=== PATIENT | female | born 1930 | race Caucasian/White ===

== ENCOUNTER 2017-08-02 16:46 | Inpatient (IN) | payer MEDICARE, OTHER ==
[2017-08-02] MEDS ORDERED: Acetaminophen 325 MG TAB PO PRN (18:03)
[2017-08-02] MEDS ORDERED: Apixaban 5 MG TAB PO SCH (18:15)
[2017-08-02] MEDS ORDERED: Diltiazem HCl 125 MG, Admixture Fee 1 EACH in Sodium Chloride 0.9% 100 ML IVPB SCH (18:15)
[2017-08-02] MEDS ORDERED: Ondansetron HCl/PF 4 MG/2 ML Vial IVP PRN (18:35)
[2017-08-02] MEDS ORDERED: Calcium Carbonate 500 MG ChewTAB PO PRN (18:35)
[2017-08-02 18:42] LABS: #Eosinphils 0.1 thou/uL (0.0-0.7); #Lymphocytes 1.6 thou/uL (1.20-3.40); #Monocytes 0.7 thou/uL (0.11-0.59); #Neutrophils 4.8 thou/uL (1.40-6.50); %Basophils 0.3 % (0.0-1.0); %Eosinophils 1.1 % (0.0-10.0); %Lymphocytes 22.3 % (21.0-51.0); %Monocytes 9.3 % (0.0-10.0); Hematocrit 43.7 % (36.0-47.0); Mean Platelet Volume 7.2 fL (7.4-10.4); Red Blood Cell (RBC) Count 4.22 mill/uL (4.20-5.40); White Blood Cell (WBC) Count 7.2 thou/uL (4.8-10.8)
[2017-08-02 19:09] LABS: ALT (SGPT) 12 U/L (8-55); AST (SGOT) 18 U/L (5-34); Alkaline Phosphatase 106 U/L (40-150); Anion Gap 13 mmol/L (10-20); BUN (Urea Nitrogen) 18 mg/dL (9.8-20.1); Bilirubin, Total 0.6 mg/dL (0.2-1.2); Calc. Creatinine Clearance 0 mL/min (70-130); Calcium 9.3 mg/dL (7.8-10.44); Carbon Dioxide 26 mmol/L (23-31); Chloride 106 mmol/L (98-107); Estimated GFR-MDRD 40; Globulin 3.4 g/dL (2.4-3.5); Protein, Total 7.5 g/dL (6.0-8.3)
[2017-08-02 19:13] LABS: Troponin I Less than 0.010 ng/mL (< 0.028)
--- NOTE | 2017-08-02 19:50 | RAD ---
PORTABLE CHEST ONE VIEW: 08/02/17 at 6:15 p.m. HISTORY: Atrial fibrillation. FINDINGS/IMPRESSION: Comparison is made to exam of 05/24/13. The heart size is normal and the aorta is tortuous. The lungs are well expanded without focal areas of consolidation, pneumothorax or pleural effusions. IMPRESSION: No acute process. POS: [facility]
--- NOTE | 2017-08-02 22:02 | HP ---
CHIEF COMPLAINT: Dizziness. HISTORY OF PRESENT ILLNESS: This is an 87-year-old pleasant lady, who was apparently in usual state of health, was feeling a little dizzy on and off for the last 3 weeks and had some chest pain on an d off as well during night time, which lasted for a few seconds because of dizziness and she had a f eeling of lack of energy. She went to her doctor, Dr. Ricardo, who evaluated her and found her to be in atrial fibrillation. She was sent from his office to us for further evaluation and treatment. S he denies any dizziness or chest pain. She denies any shortness of breath, fever, or chills. PAST MEDICAL HISTORY: Significant for left shoulder degenerative joint disease, hypertension, stres s test negative in 2012, diverticulosis, hyperlipidemia, and hypertension. MEDICATIONS: Include losartan 100 mg p.o. daily. ALLERGIES: NARCISO and ACTONEL. PAST SURGICAL HISTORY: Colon surgery in 2004 and knee surgery. FAMILY HISTORY: Mother has coronary artery disease. SOCIAL HISTORY: Does not smoke or do recreational drugs. Has 2 or 3 glasses of wine every day. OUTPATIENT REVIEW OF SYSTEMS: Significant for dizziness, on and off chest pain, otherwise no fever, no chills, no headache, no appetite, and latencies, no shortness of breath, no diarrhea, dysuria, o r polyuria. No memory or mood changes. No neck pain. PHYSICAL EXAMINATION: VITAL SIGNS: Blood pressure is 134/97, pulse is 141, temperature 97, breathing comfortably on room air. GENERAL: The patient is lying in bed, in no apparent distress. HEENT: Atraumatic and normocephalic. Pupils equally round, react to light. Extraocular movements intact. Mucous membranes moist. NECK: No JVD. CHEST: Breath sounds heard. There are no rales or rhonchi. HEART: S1 and S2 normal, irregularly irregular rhythm. ABDOMEN: Soft, obese. EXTREMITIES: No cyanosis, clubbing, or edema. Distal pulses present. NEUROLOGIC: Alert, awake, oriented. No cranial deficits. No sensorimotor deficits. LABORATORY DATA: Patient's labs are pending. ASSESSMENT AND PLAN: Atrial fibrillation with rapid ventricular response, do IV Cardizem 10 mg IV p ush, followed by Cardizem drip at 6 mg per hour. We will see the response and make further recommen dations, do Eliquis for anticoagulation, serial troponins, and Cardiology consult. We will also do an echocardiogram. Patient's hypertension, on Cardizem, we will monitor that and add medications as needed. We will hold losartan for now. Degenerative joint disease of the left shoulder, we will d o pain medications. History of diverticulosis, stable. The patient is on Eliquis for deep venous t hrombosis prophylaxis. I will work with Cardiology and further caring for the patient.
[2017-08-03 01:09] LABS: Troponin I 0.062 ng/mL (< 0.028)
[2017-08-03 05:33] LABS: #Basophils 0.1 thou/uL (0.0-0.2); #Eosinphils 0.2 thou/uL (0.0-0.7); #Lymphocytes 1.7 thou/uL (1.20-3.40); #Monocytes 0.7 thou/uL (0.11-0.59); #Neutrophils 3.8 thou/uL (1.40-6.50); %Basophils 0.9 % (0.0-1.0); %Eosinophils 2.6 % (0.0-10.0); %Lymphocytes 26.8 % (21.0-51.0); Hematocrit 41.5 % (36.0-47.0); Mean Platelet Volume 7.2 fL (7.4-10.4); Red Blood Cell (RBC) Count 4.04 mill/uL (4.20-5.40); White Blood Cell (WBC) Count 6.4 thou/uL (4.8-10.8)
[2017-08-03 05:51] LABS: Bilirubin Negative (Negative); Blood, Urine Trace (Negative); Glucose, Urine (Dipstick) Negative (Negative); Ketone, Urine Trace mg/dL (Negative); Nitrite Negative (Negative); Protein, Urine (Dipstick) Negative (Neg-Trace); Urobilinogen 0.2 mg/dL (0.2-1.0)
[2017-08-03 05:52] LABS: ALT (SGPT) 10 U/L (8-55); AST (SGOT) 18 U/L (5-34); Alkaline Phosphatase 90 U/L (40-150); Anion Gap 8 mmol/L (10-20); BUN (Urea Nitrogen) 15 mg/dL (9.8-20.1); Bilirubin, Total 0.7 mg/dL (0.2-1.2); Calc. Creatinine Clearance 41 mL/min (70-130); Calcium 8.9 mg/dL (7.8-10.44); Carbon Dioxide 30 mmol/L (23-31); Chloride 106 mmol/L (98-107); Estimated GFR-MDRD 52; Globulin 2.9 g/dL (2.4-3.5); Protein, Total 6.6 g/dL (6.0-8.3)
[2017-08-03 06:13] LABS: Bacteria/HPF 1+ HPF (None Seen); Hyaline Casts/LPF 0-3 HYALINE CAST LPF (0-3 Hyaline)
[2017-08-03] MEDS ORDERED: Losartan Potassium 25 MG TAB PO SCH (09:00)
[2017-08-03] MEDS ORDERED: FLU VACC TS2017-18 (>65YR) 0.5 ML SYRINGE IM ONE (09:00)
[2017-08-03] MEDS: Apixaban 5 MG TAB PO SCH ×2 (10:01→21:34)
--- NOTE | 2017-08-03 11:51 | PDOC.PN ---
- Subjective Encounter Start Date: 08/03/17 Encounter Start Time: 08:20 Pt seen for followup re; atrial fibrillation with rapid ventricular response. Denies chest pain or shortness of breath. Denies palpitations. Reports tinnitus, bilateral, few weeks duration. Reports feeling dizzy. Denies hearing loss. - Objective Resuscitation Status: Resuscitation Status DNR:Do Not Resuscitate MAR Reviewed: Yes Vital Signs & Weight: Vital Signs (12 hours) Temp Pulse Resp BP Pulse Ox 08/03/17 08:55 97.9 F 104 H 16 97 08/03/17 04:24 97.5 F L 112 H 18 105/69 92 L Weight Weight 146 lb I&O: 08/02/17 08/03/17 08/04/17 06:59 06:59 06:59 Intake Total 163.6 Output Total 300 Balance -136.4 Result Diagrams: 08/03/17 04:37 08/03/17 04:37 EKG Reviewed by me: Yes (Tele: aFaith [email or web address]) Phys Exam - Physical Examination Constitutional: NAD HEENT: moist MMs, sclera anicteric, TM's clear, oral pharynx no lesions Neck: no JVD, supple Respiratory: no wheezing, no rales, no rhonchi, clear to auscultation bilateral Cardiovascular: no rub, irregular Gastrointestinal: soft, non-tender, no distention, positive bowel sounds Musculoskeletal: no edema, pulses present Neurological: non-focal, moves all 4 limbs Psychiatric: normal affect, A&O x 3 Skin: no rash, normal turgor, cap refill <2 seconds Dx/Plan (1) Atrial fibrillation with RVR Code(s): I48.91 - UNSPECIFIED ATRIAL FIBRILLATION Status: Acute (2) Tinnitus of both ears Code(s): H93.13 - TINNITUS, BILATERAL Status: Acute (3) Hypertension Code(s): I10 - ESSENTIAL (PRIMARY) HYPERTENSION Status: Chronic (4) Dyslipidemia Code(s): E78.5 - HYPERLIPIDEMIA, UNSPECIFIED Status: Chronic - Plan out of bed/ambulate * . Continue cardizem drip, await cardiology consult. Check 2D echo. Continue apixaban. Consult ENT re; tinnitus. Continue losartan, monitor vital signs and titrate antihypertensives as needed. Review of Systems - Review of Systems Constitutional: negative: Fever, Chills, Sweats, Weakness, Malaise ENT: Other (dizziness, tinnitus) Respiratory: negative: Cough, Dry, Shortness of Breath, Hemoptysis, SOB with Excertion, Pleuritic Pain, Sputum, Wheezing Cardiovascular: negative: Chest Pain, Palpitations, Orthopnea, Paroxysmal Noc. Dyspnea, Edema, Light Headedness Gastrointestinal: negative: Nausea, Vomiting, Abdominal Pain, Diarrhea, Constipation, Melena, Hematochezia Genitourinary: negative: Dysuria, Frequency, Incontinence, Hematuria, Retention - Medications/Allergies Allergies/Adverse Reactions: Allergies Allergy/AdvReac Type Severity Reaction Status Date / Time No Known Drug Allergies Allergy Verified 08/03/17 00:12 Medications: Current Medications Acetaminophen (Tylenol) 650 mg PO QIDPRN PRN PRN Reason: Headache/Fever or Pain Hydrocodone Bitart/Acetaminophen ([place] 5/325) 1 tab PO Q4H PRN PRN Reason: Moderate Pain (4-6) Apixaban (Eliquis) 5 mg PO BID [facility] Last Admin: 08/03/17 10:01 Dose: 5 mg Calcium Carbonate (Tums) 1,000 mg PO Q4H PRN PRN Reason: Heartburn or Indigestion Diltiazem HCl 125 mg/Miscellaneous Medication 1 each/ Sodium Chloride 125 mls @ 6 mls/hr IVPB INF [facility] PRN Reason: Protocol Ondansetron HCl (Zofran) 4 mg IVP Q6H PRN PRN Reason: Nausea/Vomiting Pantoprazole Sodium (Protonix) 40 mg PO DAILY [facility] Last Admin: 08/03/17 10:01 Dose: 40 mg
[2017-08-03] MEDS ORDERED: Acetaminophen 325 MG TAB PO PRN (11:53)
[2017-08-03] MEDS ORDERED: Digoxin 0.5 MG/2 ML AMP SLOW IVP SCH (15:30)
[2017-08-03] MEDS: Carvedilol 3.125 MG TAB PO SCH (16:01)
--- NOTE | 2017-08-03 17:37 | CON ---
DATE OF CONSULTATION: 08/03/2017 CARDIOLOGY CONSULTATION INDICATION FOR CONSULTATION: An 87-year-old female with new onset atrial fibrillation. HISTORY OF PRESENT ILLNESS: Ms. Lynch is a very pleasant 87-year-old female. I took care of her h usband for many years until his . She has been doing extremely well given her age. She recent ly had taken a trip to [place], [place] for her birthday and had been doing quite well. She then retu rned back to [facility], and on Tuesday, she started feeling somewhat dizzy and then yesterday she had a near syncopal episode. She has not been feeling very well and she also had some discomfort in the epigastric and lower chest area with some aching and then radiated to the back ar ea. She then presented to her primary physician's office and was found to have atrial fibrillation with rapid ventricular response, and was then brought to the hospital where she has been admitted. She continues to be in atrial fibrillation with rapid ventricular response, but she is somewhat more comfortable and now that she is lying in the bed and is not very active. She has been up to the ba throom by herself and heart rate does increase when she does have activity. She has had no previous cardiac history that she is aware of. At this time, she is comfortable. She denied any other ches t discomfort. She did have some shortness of breath with exertion with the new onset of the atrial fibrillation. PAST MEDICAL HISTORY: I believe she has had shoulder surgery and she says that she has degenerative joint disease. She has history of hypertension. She has mild aortic valve sclerosis. She has had colon polyps in the past. She has had a history of hypercholesterolemia. She has had right knee s urgery. She has had a history of esophageal reflux. She has osteopenia. She has a right inguinal hernia for which she underwent right inguinal hernia repair. She has L4-L5 stenosis. FAMILY HISTORY: Positive for coronary artery disease in her mother. SOCIAL HISTORY: There is no history of tobacco abuse. She has 2 to 3 glasses of wine a day. ALLERGIES: She is allergic to NARCISO INHIBITORS and ACTONEL. MEDICATIONS: Prior to admission include losartan and also Tylenol and Metamucil. HOSPITAL MEDICATIONS: She is on Tylenol, Eliquis 5 mg b.i.d., I have been recently started her toda y on Coreg 3.125 mg b.i.d. and I have also started her on digoxin. She is already on diltiazem IV f or rate control, losartan 100 mg at bedtime and Protonix 40 mg q.p.m. REVIEW OF SYSTEMS: She has complained of some tenderness. Otherwise, 12-point review of systems wa s unremarkable except what was noted in the history of present illness. This 87-year-old female who remains very active for her age, has had no major hospitalizations or illnesses. PHYSICAL EXAMINATION: GENERAL: Reveals an elderly, very pleasant female. VITAL SIGNS: Her blood pressure is 117/96, heart rate is anywhere between 104 to 141. She is afebr ile, respiratory rate 18 to 23. HEENT: Shows head to be normocephalic and atraumatic. Carotid pulses are present. I did not hear any bruits. There is no JVD. The thyroid is not enlarged. Oral mucosa was pink and moist. CHEST: Clear to auscultation. There are no rales, rhonchi, or wheezing noted. CARDIOVASCULAR: Exam reveals a rapid rate with an irregular rhythm. I did not hear any significant S1 or S2. There is no S3 or S4 noted. ABDOMEN: Soft and nontender. She has positive bowel sounds. EXTREMITIES: Showed no clubbing, cyanosis or edema. Pedal pulses are present. NEUROLOGIC: She is awake and alert. SKIN: Warm and dry. IMAGING: EKG shows atrial fibrillation, but no acute ST segment changes to indicate ischemia. LABORATORY DATA: Shows a creatinine of 1.0, potassium 4.5, hemoglobin is 14 and WBC is 6.4. Her ca rdiac enzymes are unremarkable to the second set, which showed a troponin I of 0.062, which would no t be unusual in a rapid heart rate associated with the atrial fibrillation. IMPRESSION: 1. New onset atrial fibrillation in this elderly female and suppose this was started since she has been back from [place] or while she was in [place] for which she went for her birthday alliance party and had quite an extensive amount of activity. We will need to evaluate the echocardiogram to determine th e left atrial size and see if we can eventually converted back to sinus rhythm. We may need to conv ert her sooner than later, and so she may need to undergo a transesophageal echocardiogram and then early cardioversion. Otherwise, we may need to slow the heart rate down to see if we can control th e heart rate and continue medications and it is not clear exactly when the atrial fibrillation did s tart. 2. History of hypertension. This is actually under relatively good control at this time and actual ly on the low side with atrial fibrillation and rapid ventricular response. 3. History of mild aortic valve sclerosis, this appears to be stable. 4. Hypercholesterolemia. She is not on any significant medications at this time. We will check th e level in her laboratory data to see exactly how high the cholesterol is. 5. History of NARCISO inhibitor intolerance and we will need to follow that very carefully and not give any NARCISO inhibitors while in the hospital. I would be more than happy to follow with the patient wi th you and further recommendations will depend on the heart rate and blood pressure as well as the r esults of the echocardiogram. At this time, in addition to the IV diltiazem, she will be started on p.o. beta-kai in the form of Coreg and also will be given IV digoxin for better rate control.
[2017-08-03] MEDS: Digoxin 0.5 MG/2 ML AMP SLOW IVP SCH (21:35)
[2017-08-03] MEDS: Losartan Potassium 25 MG TAB PO SCH (21:35)
[2017-08-04] MEDS: Digoxin 0.5 MG/2 ML AMP SLOW IVP SCH (04:19)
[2017-08-04] MEDS: Digoxin 0.125 MG TAB PO SCH (10:14)
[2017-08-04] MEDS: Carvedilol 3.125 MG TAB PO SCH ×2 (10:15→17:27)
[2017-08-04] MEDS: Apixaban 5 MG TAB PO SCH ×2 (10:15→22:12)
[2017-08-04] MEDS ORDERED: Diltiazem HCl 125 MG, Admixture Fee 1 EACH in Sodium Chloride 0.9% 100 ML IVPB SCH (12:15)
--- NOTE | 2017-08-04 13:30 | PDOC.PN ---
- Subjective Encounter Start Date: 08/04/17 Encounter Start Time: 08:40 Pt seen for followup re: atrial fibrillation. Denies chest pain, shortness of breath, fevers or chills. Has ongoing tinnitus, delroy. - Objective Resuscitation Status: Resuscitation Status DNR:Do Not Resuscitate MAR Reviewed: Yes Vital Signs & Weight: Vital Signs (12 hours) Temp Pulse Resp BP Pulse Ox 08/04/17 11:30 97.5 F L 74 19 114/57 L 98 08/04/17 10:14 76 08/04/17 07:25 97.5 F L 76 14 103/57 L 96 08/04/17 04:19 122 H 08/04/17 04:00 97.7 F 83 18 139/63 96 Weight Weight 146 lb I&O: 08/03/17 08/04/17 08/05/17 06:59 06:59 06:59 Intake Total 163.6 842 Output Total 300 780 Balance -136.4 62 Result Diagrams: 08/03/17 04:37 08/03/17 04:37 EKG Reviewed by me: Yes (Tele: megan [email or web address]) Phys Exam - Physical Examination Constitutional: NAD HEENT: moist MMs, sclera anicteric, oral pharynx no lesions Neck: supple Respiratory: no wheezing, no rales, no rhonchi, clear to auscultation bilateral Cardiovascular: no rub, irregular S1, S2, irreg Gastrointestinal: soft, non-tender, no distention, positive bowel sounds Musculoskeletal: pulses present Neurological: moves all 4 limbs Lymphatic: no nodes Psychiatric: normal affect, A&O x 3 Skin: no rash, normal turgor, cap refill <2 seconds Dx/Plan (1) Atrial fibrillation with RVR Code(s): I48.91 - UNSPECIFIED ATRIAL FIBRILLATION Status: Acute (2) Tinnitus of both ears Code(s): H93.13 - TINNITUS, BILATERAL Status: Acute (3) Hypertension Code(s): I10 - ESSENTIAL (PRIMARY) HYPERTENSION Status: Chronic (4) Dyslipidemia Code(s): E78.5 - HYPERLIPIDEMIA, UNSPECIFIED Status: Chronic - Plan * . Pt has been started on digoxin, beta kai, apixaban. Try to wean off of Cardizem drip. Appreciate cardiology service input. Await ENT consult. Monitor vital signs and titrate antihypertensives. Continue statin. Review of Systems - Review of Systems Constitutional: negative: Fever, Chills, Sweats, Weakness, Malaise ENT: Other (Delroy tinnitus) Respiratory: negative: Cough, Dry, Shortness of Breath, Hemoptysis, SOB with Excertion, Pleuritic Pain, Sputum, Wheezing Cardiovascular: negative: Chest Pain, Palpitations, Orthopnea, Paroxysmal Noc. Dyspnea, Edema, Light Headedness Gastrointestinal: negative: Nausea, Vomiting, Abdominal Pain, Diarrhea, Constipation, Melena, Hematochezia Genitourinary: negative: Dysuria, Frequency, Incontinence, Hematuria, Retention - Medications/Allergies Allergies/Adverse Reactions: Allergies Allergy/AdvReac Type Severity Reaction Status Date / Time No Known Drug Allergies Allergy Verified 08/03/17 00:12 Medications: Current Medications Acetaminophen (Tylenol) 650 mg PO Q4HR PRN PRN Reason: Pain Hydrocodone Bitart/Acetaminophen ([place] 5/325) 1 tab PO Q4H PRN PRN Reason: Moderate Pain (4-6) Apixaban (Eliquis) 5 mg PO BID [facility] Last Admin: 08/04/17 10:15 Dose: 5 mg Calcium Carbonate (Tums) 1,000 mg PO Q4H PRN PRN Reason: Heartburn or Indigestion Carvedilol (Coreg) 3.125 mg PO BID-[facility] Last Admin: 08/04/17 10:15 Dose: 3.125 mg Digoxin (Lanoxin) 0.125 mg PO QAM [facility] Last Admin: 08/04/17 10:14 Dose: 0.125 mg Diltiazem HCl 125 mg/Miscellaneous Medication 1 each/ Sodium Chloride 125 mls @ 2.5 mls/hr IVPB INF [facility] PRN Reason: Protocol Losartan Potassium (Cozaar) 100 mg PO HS [facility] Last Admin: 08/03/17 21:35 Dose: 100 mg Ondansetron HCl (Zofran) 4 mg IVP Q6H PRN PRN Reason: Nausea/Vomiting Pantoprazole Sodium (Protonix) 40 mg PO DAILY [facility] Last Admin: 08/04/17 10:15 Dose: 40 mg Psyllium Hydrophilic Mucilloid (Metamucil) 1 pk PO HS PRN PRN Reason: Abdominal Distention
--- NOTE | 2017-08-04 14:45 | PDOC.CTH ---
<Anastasia Ravi - Last Filed: 08/04/17 14:41> Cardiology Progress Note - Subjective The pt was seen and examined. No overnight events. No cardiac complaints. - Objective Vital Signs Temp Pulse Resp BP Pulse Ox 08/04/17 11:30 97.5 F L 74 19 114/57 L 98 08/04/17 10:14 76 08/04/17 07:25 97.5 F L 76 14 103/57 L 96 08/04/17 04:19 122 H 08/04/17 04:00 97.7 F 83 18 139/63 96 Weight 146 lb 08/03/17 08/04/17 08/05/17 06:59 06:59 06:59 Intake Total 163.6 842 Output Total 300 780 Balance -136.4 62 - Physical Examination General/Neuro: alert & oriented x3 Neck: no JVD present Lungs: CTA Heart: other: (Irregular) Abdomen: soft Extremities: other: (No edemas) - Telemetry Telemetry Rhythm: Afib 70s - Labs Result Diagrams: 08/03/17 04:37 08/03/17 04:37 Troponin/CKMB CK-MB (CK-2) 2.8 ng/mL (0-6.6) 08/02/17 18:34 Troponin I 0.062 ng/mL (< 0.028) H 08/03/17 00:30 - Assessment/Plan 1. New onset Atrial fibrillation with RVR - rate well controlled with Diltiazem IV, digoxin 0.125mg, beta kai, and apixaban. Stop Diltiazem IV and start 120mg PO daily from [facility]; cont. monitor on tele 2. HTN - stable with current medication 3. Dyslipidemia - on Statin medication 4. Both ears' Tinnitus - ENT consult by PCP MAR reviewed Review of Systems - Review of Systems Constitutional: reports: no symptoms reported EENTM: reports: no symptoms reported Respiratory: reports: no symptoms reported Cardiac (ROS): reports: no symptoms reported ABD/GI: reports: no symptoms reported : reports: no symptoms reported <Thomas Stevens - Last Filed: 08/04/17 18:09> Cardiology Progress Note - Objective Vital Signs Temp Pulse Resp BP Pulse Ox 08/04/17 16:00 97.5 F L 77 15 121/58 L 92 L 08/04/17 11:30 97.5 F L 74 19 114/57 L 98 08/04/17 10:14 76 08/04/17 08:00 97.5 F L 76 14 96 08/04/17 07:25 97.5 F L 76 14 103/57 L 96 Weight 146 lb 08/03/17 08/04/17 08/05/17 06:59 06:59 06:59 Intake Total 163.6 842 Output Total 300 780 Balance -136.4 62 - Labs Result Diagrams: 08/03/17 04:37 08/03/17 04:37 Troponin/CKMB CK-MB (CK-2) 2.8 ng/mL (0-6.6) 08/02/17 18:34 Troponin I 0.062 ng/mL (< 0.028) H 08/03/17 00:30 - Assessment/Plan Pt. seen and eval. I agree with the A/P by the SURVEYOR MINE. Control the HR,OAC for 4-6 weeks and then consider cardioversion.
[2017-08-04] MEDS: Losartan Potassium 25 MG TAB PO SCH (22:12)
[2017-08-05] MEDS: Digoxin 0.125 MG TAB PO SCH (09:11)
[2017-08-05] MEDS: Apixaban 5 MG TAB PO SCH ×2 (09:11→22:23)
[2017-08-05] MEDS: Carvedilol 3.125 MG TAB PO SCH ×2 (09:11→18:55)
--- NOTE | 2017-08-05 13:03 | PDOC.PN ---
- Subjective Encounter Start Date: 08/05/17 Encounter Start Time: 09:20 Pt seen for followup re: megan gonzalez with rvr. Denies chest pain, shortness of breath, fevers or chills. No nausea or vomiting. - Objective Resuscitation Status: Resuscitation Status DNR:Do Not Resuscitate MAR Reviewed: Yes Vital Signs & Weight: Vital Signs (12 hours) Temp Pulse Resp BP Pulse Ox 08/05/17 12:07 97.7 F 87 18 120/62 97 08/05/17 09:11 83 08/05/17 08:00 97.8 F 83 16 121/64 96 08/05/17 05:32 98 08/05/17 04:00 97.9 F 68 16 117/74 98 Weight Weight 146 lb I&O: 08/04/17 08/05/17 08/06/17 06:59 06:59 06:59 Intake Total 842 1180 Output Total 780 600 Balance 62 580 Result Diagrams: 08/03/17 04:37 08/03/17 04:37 EKG Reviewed by me: Yes (Tele: megan gonzalez) Phys Exam - Physical Examination Constitutional: NAD HEENT: moist MMs Respiratory: clear to auscultation bilateral Cardiovascular: irregular Gastrointestinal: soft, non-tender Musculoskeletal: pulses present Neurological: moves all 4 limbs Psychiatric: normal affect Dx/Plan (1) Atrial fibrillation with RVR Code(s): I48.91 - UNSPECIFIED ATRIAL FIBRILLATION Status: Acute (2) Tinnitus of both ears Code(s): H93.13 - TINNITUS, BILATERAL Status: Acute (3) Hypertension Code(s): I10 - ESSENTIAL (PRIMARY) HYPERTENSION Status: Chronic (4) Dyslipidemia Code(s): E78.5 - HYPERLIPIDEMIA, UNSPECIFIED Status: Chronic - Plan PT/OT, out of bed/ambulate * . Rate controlled. Off of cardizem drip. Continue apixaban. Likely home 1-2 days. To followup with ENT as outpatient. Review of Systems - Review of Systems Constitutional: negative: Fever, Chills, Sweats, Weakness, Malaise ENT: Other (Delroy tinnitus) Respiratory: negative: Cough, Dry, Shortness of Breath, Hemoptysis, SOB with Excertion, Pleuritic Pain, Sputum, Wheezing Cardiovascular: negative: Chest Pain, Palpitations, Orthopnea, Paroxysmal Noc. Dyspnea, Edema, Light Headedness - Medications/Allergies Allergies/Adverse Reactions: Allergies Allergy/AdvReac Type Severity Reaction Status Date / Time No Known Drug Allergies Allergy Verified 08/03/17 00:12 Medications: Current Medications Acetaminophen (Tylenol) 650 mg PO Q4HR PRN PRN Reason: Pain Hydrocodone Bitart/Acetaminophen ([place] 5/325) 1 tab PO Q4H PRN PRN Reason: Moderate Pain (4-6) Apixaban (Eliquis) 5 mg PO BID [facility] Last Admin: 08/05/17 09:11 Dose: 5 mg Calcium Carbonate (Tums) 1,000 mg PO Q4H PRN PRN Reason: Heartburn or Indigestion Carvedilol (Coreg) 3.125 mg PO BID[facility] Last Admin: 08/05/17 09:11 Dose: 3.125 mg Digoxin (Lanoxin) 0.125 mg PO QAM [facility] Last Admin: 08/05/17 09:11 Dose: 0.125 mg Diltiazem HCl (Cardizem Cd) 240 mg PO 2100 [facility] Last Admin: 08/04/17 22:12 Dose: 240 mg Losartan Potassium (Cozaar) 100 mg PO HS [facility] Last Admin: 08/04/17 22:12 Dose: Not Given Ondansetron HCl (Zofran) 4 mg IVP Q6H PRN PRN Reason: Nausea/Vomiting Pantoprazole Sodium (Protonix) 40 mg PO DAILY [facility] Last Admin: 08/05/17 09:11 Dose: 40 mg Psyllium Hydrophilic Mucilloid (Metamucil) 1 pk PO HS PRN PRN Reason: Abdominal Distention Sodium Chloride (Flush - Normal Saline) 10 ml IVF Q12HR [facility] Last Admin: 08/05/17 09:10 Dose: 10 ml Sodium Chloride (Flush - Normal Saline) 10 ml IVF PRN PRN PRN Reason: Saline Flush
--- NOTE | 2017-08-05 14:43 | PDOC.CTH ---
Cardiology Progress Note - Subjective Pt. seen and eval. no cardiac complaints. - Objective Vital Signs Temp Pulse Resp BP BP Pulse Ox 08/05/17 14:21 78 120/62 08/05/17 12:07 97.7 F 87 18 120/62 97 08/05/17 09:11 83 08/05/17 08:00 97.8 F 83 16 121/64 96 08/05/17 05:32 98 08/05/17 04:00 97.9 F 68 16 117/74 98 Weight 146 lb 08/04/17 08/05/17 08/06/17 06:59 06:59 06:59 Intake Total 842 1180 Output Total 780 600 Balance 62 580 - Physical Examination General/Neuro: alert & oriented x3 Neck: carotid US brisk Lungs: CTA Heart: PMI normal Abdomen: no HSM - Telemetry Telemetry Rhythm: Afib. - Labs Result Diagrams: 08/03/17 04:37 08/03/17 04:37 Troponin/CKMB CK-MB (CK-2) 2.8 ng/mL (0-6.6) 08/02/17 18:34 Troponin I 0.062 ng/mL (< 0.028) H 08/03/17 00:30 - Assessment/Plan 1. New onset Atrial fibrillation with RVR - rate well controlled with Diltiazem , digoxin 0.125mg, beta kai, and apixaban. Diltiazem 240mg decreased to 120mg PO daily from tonight; cont. monitor on tele. 3,1 second pause last night. Asymptomatic. Likely may have SSS. Decrease meds and see if she tolerates. If further episodes may need pacemaker. Consider RUBA and early cardioversion if the rate increases with the decr. in meds. 2. HTN - stable with current medication 3. Dyslipidemia - on Statin medication Review of Systems - Review of Systems Constitutional: reports: no symptoms reported EENTM: reports: no symptoms reported Respiratory: reports: no symptoms reported Cardiac (ROS): reports: no symptoms reported ABD/GI: reports: no symptoms reported Musculoskeletal: reports: no symptoms reported
[2017-08-05] MEDS: Losartan Potassium 25 MG TAB PO SCH (22:45)
[2017-08-06 05:40] LABS: Hematocrit 43.1 % (36.0-47.0)
[2017-08-06] MEDS: Digoxin 0.125 MG TAB PO SCH (08:36)
[2017-08-06] MEDS: Apixaban 5 MG TAB PO SCH ×2 (08:36→21:03)
[2017-08-06] MEDS: Carvedilol 3.125 MG TAB PO SCH ×2 (08:36→17:06)
--- NOTE | 2017-08-06 12:54 | PDOC.PN ---
- Subjective Encounter Start Date: 08/06/17 Encounter Start Time: 09:40 Pt seen for followup re: ahsan gonzalez. Pt denies chest pain, shortness of breath, fevers or chills. No vomiting or urinary symptoms. - Objective Resuscitation Status: Resuscitation Status DNR:Do Not Resuscitate MAR Reviewed: Yes Vital Signs & Weight: Vital Signs (12 hours) Temp Pulse Resp BP BP Pulse Ox 08/06/17 11:52 97.5 F L 87 16 140/76 98 08/06/17 08:37 97.8 F 91 16 99 08/06/17 08:36 91 08/06/17 08:33 97.8 F 91 16 146/63 H 99 08/06/17 04:25 94 L 08/06/17 04:00 97.3 F L 97 16 120/72 94 L Weight Weight 145 lb 1.6 oz I&O: 08/05/17 08/06/17 08/07/17 06:59 06:59 06:59 Intake Total 1180 890 Output Total 600 875 Balance 580 15 Result Diagrams: 08/06/17 04:46 08/06/17 04:46 EKG Reviewed by me: Yes (Tele: megan gonzalez, 3.4 sec sinus pause) Phys Exam - Physical Examination Constitutional: NAD HEENT: moist MMs Neck: supple Respiratory: clear to auscultation bilateral Cardiovascular: no rub, irregular Gastrointestinal: soft, positive bowel sounds Musculoskeletal: pulses present Neurological: moves all 4 limbs Psychiatric: normal affect Skin: no rash Dx/Plan (1) Afib Code(s): I48.91 - UNSPECIFIED ATRIAL FIBRILLATION Status: Acute (2) Tinnitus of both ears Code(s): H93.13 - TINNITUS, BILATERAL Status: Acute (3) Hypertension Code(s): I10 - ESSENTIAL (PRIMARY) HYPERTENSION Status: Chronic (4) Dyslipidemia Code(s): E78.5 - HYPERLIPIDEMIA, UNSPECIFIED Status: Chronic - Plan PT/OT, out of bed/ambulate * . Multiple sinus pauses. Cardizem dose was decreased yesterday, await cardiology input. To see ENT as outpatient re: tinnitus. Review of Systems - Review of Systems Respiratory: negative: Cough, Dry, Shortness of Breath, Hemoptysis, SOB with Excertion, Pleuritic Pain, Sputum, Wheezing Cardiovascular: negative: Chest Pain, Palpitations, Orthopnea, Paroxysmal Noc. Dyspnea, Edema, Light Headedness Gastrointestinal: negative: Nausea, Vomiting, Abdominal Pain, Diarrhea, Constipation, Melena, Hematochezia - Medications/Allergies Allergies/Adverse Reactions: Allergies Allergy/AdvReac Type Severity Reaction Status Date / Time No Known Drug Allergies Allergy Verified 08/03/17 00:12 Medications: Current Medications Acetaminophen (Tylenol) 650 mg PO Q4HR PRN PRN Reason: Pain Hydrocodone Bitart/Acetaminophen ([place] 5/325) 1 tab PO Q4H PRN PRN Reason: Moderate Pain (4-6) Apixaban (Eliquis) 5 mg PO BID [facility] Last Admin: 08/06/17 08:36 Dose: 5 mg Calcium Carbonate (Tums) 1,000 mg PO Q4H PRN PRN Reason: Heartburn or Indigestion Carvedilol (Coreg) 3.125 mg PO BID-[facility] Last Admin: 08/06/17 08:36 Dose: 3.125 mg Digoxin (Lanoxin) 0.125 mg PO QAM [facility] Last Admin: 08/06/17 08:36 Dose: 0.125 mg Diltiazem HCl (Cardizem Cd) 120 mg PO 2100 [facility] Last Admin: 08/05/17 22:45 Dose: Not Given Losartan Potassium (Cozaar) 100 mg PO HS [facility] Last Admin: 08/05/17 22:45 Dose: Not Given Ondansetron HCl (Zofran) 4 mg IVP Q6H PRN PRN Reason: Nausea/Vomiting Pantoprazole Sodium (Protonix) 40 mg PO DAILY [facility] Last Admin: 08/06/17 08:36 Dose: 40 mg Psyllium Hydrophilic Mucilloid (Metamucil) 1 pk PO HS PRN PRN Reason: Abdominal Distention Sodium Chloride (Flush - Normal Saline) 10 ml IVF Q12HR [facility] Last Admin: 08/06/17 08:37 Dose: 10 ml Sodium Chloride (Flush - Normal Saline) 10 ml IVF PRN PRN PRN Reason: Saline Flush
--- NOTE | 2017-08-06 18:35 | PDOC.CTH ---
Cardiology Progress Note - Subjective She is feeling well. She has no complaints. Denies any syncope, presyncope, lightheadedness. - Objective Vital Signs Temp Pulse Resp BP BP Pulse Ox 08/06/17 14:42 97.0 F L 81 16 119/58 L 98 08/06/17 11:52 97.5 F L 87 16 140/76 98 08/06/17 08:37 97.8 F 91 16 99 08/06/17 08:36 91 08/06/17 08:33 97.8 F 91 16 146/63 H 99 Weight 145 lb 1.6 oz 08/05/17 08/06/17 08/07/17 06:59 06:59 06:59 Intake Total 1180 890 720 Output Total 600 875 750 Balance 580 15 -30 - Physical Examination General/Neuro: alert & oriented x3, NAD Neck: no JVD present Lungs: CTA, unlabored respirations Heart: other: (irreg) Abdomen: NT/ND Extremities: other: (no edema) - Telemetry Telemetry Rhythm: Afib HR 30-120 - Labs Result Diagrams: 08/06/17 04:46 08/06/17 04:46 Troponin/CKMB CK-MB (CK-2) 2.8 ng/mL (0-6.6) 08/02/17 18:34 Troponin I 0.062 ng/mL (< 0.028) H 08/03/17 00:30 - Assessment/Plan 1. New onset Atrial fibrillation with RVR 2. Possibly SSS, she has HR's down to the 20's overnight and pauses of about 4 secs and since medications were held her HR is now in the 110's. 2. HTN 3. Dyslipidemia - on Statin medication PLAN: - Will stop digoxin today. - May need PPM in the near future.
[2017-08-06] MEDS: Losartan Potassium 25 MG TAB PO SCH (21:04)
[2017-08-07 05:43] LABS: Anion Gap 8 mmol/L (10-20); BUN (Urea Nitrogen) 17 mg/dL (9.8-20.1); Calc. Creatinine Clearance 43 mL/min (70-130); Calcium 8.9 mg/dL (7.8-10.44); Carbon Dioxide 31 mmol/L (23-31); Chloride 106 mmol/L (98-107); Estimated GFR-MDRD 56
[2017-08-07] MEDS: Carvedilol 3.125 MG TAB PO SCH ×2 (08:12→16:02)
[2017-08-07] MEDS: Apixaban 5 MG TAB PO SCH ×2 (09:27→20:36)
--- NOTE | 2017-08-07 11:02 | PDOC.PN ---
- Subjective Encounter Start Date: 08/07/17 Encounter Start Time: 08:20 Pt seen for followup re: megan gonzalez. denies chest pain, shortness of berath, fevers or chills. No nausea or vomiting. - Objective Resuscitation Status: Resuscitation Status DNR:Do Not Resuscitate MAR Reviewed: Yes Vital Signs & Weight: Vital Signs (12 hours) Temp Pulse Resp BP BP Pulse Ox 08/07/17 08:10 98 F 76 16 140/70 100 08/07/17 04:35 99 08/07/17 04:00 97.8 F 73 16 124/61 99 08/07/17 00:10 97 08/07/17 00:00 97.6 F 80 16 117/55 L 97 Weight Weight 144 lb 14.4 oz I&O: 08/06/17 08/07/17 08/08/17 06:59 06:59 06:59 Intake Total 890 960 Output Total 875 1300 Balance 15 -340 Result Diagrams: 08/06/17 04:46 08/07/17 05:05 EKG Reviewed by me: Yes (Tele: megan gonzalez) Phys Exam - Physical Examination Constitutional: NAD HEENT: moist MMs, sclera anicteric Neck: supple Respiratory: clear to auscultation bilateral Cardiovascular: irregular Gastrointestinal: soft Neurological: moves all 4 limbs Psychiatric: normal affect Skin: no rash Dx/Plan (1) Afib Code(s): I48.91 - UNSPECIFIED ATRIAL FIBRILLATION Status: Acute (2) Tinnitus of both ears Code(s): H93.13 - TINNITUS, BILATERAL Status: Acute (3) Hypertension Code(s): I10 - ESSENTIAL (PRIMARY) HYPERTENSION Status: Chronic (4) Dyslipidemia Code(s): E78.5 - HYPERLIPIDEMIA, UNSPECIFIED Status: Chronic - Plan PT/OT, out of bed/ambulate * . Pt is off of digoxin. No sinus pauses overnight. Ambulating well. Review of Systems - Review of Systems Constitutional: negative: Fever, Chills, Sweats, Weakness, Malaise Respiratory: negative: Cough, Dry, Shortness of Breath, Hemoptysis, SOB with Excertion, Pleuritic Pain, Sputum, Wheezing Cardiovascular: negative: Chest Pain, Palpitations, Orthopnea, Paroxysmal Noc. Dyspnea, Edema, Light Headedness - Medications/Allergies Allergies/Adverse Reactions: Allergies Allergy/AdvReac Type Severity Reaction Status Date / Time No Known Drug Allergies Allergy Verified 08/03/17 00:12 Medications: Current Medications Acetaminophen (Tylenol) 650 mg PO Q4HR PRN PRN Reason: Pain Hydrocodone Bitart/Acetaminophen ([place] 5/325) 1 tab PO Q4H PRN PRN Reason: Moderate Pain (4-6) Apixaban (Eliquis) 5 mg PO BID [facility] Last Admin: 08/07/17 09:27 Dose: 5 mg Calcium Carbonate (Tums) 1,000 mg PO Q4H PRN PRN Reason: Heartburn or Indigestion Carvedilol (Coreg) 3.125 mg PO BID-[facility] Last Admin: 08/07/17 08:12 Dose: 3.125 mg Diltiazem HCl (Cardizem Cd) 120 mg PO 2100 [facility] Last Admin: 08/06/17 21:03 Dose: 120 mg Losartan Potassium (Cozaar) 100 mg PO HS [facility] Last Admin: 08/06/17 21:04 Dose: 100 mg Ondansetron HCl (Zofran) 4 mg IVP Q6H PRN PRN Reason: Nausea/Vomiting Pantoprazole Sodium (Protonix) 40 mg PO DAILY [facility] Last Admin: 08/07/17 09:27 Dose: 40 mg Psyllium Hydrophilic Mucilloid (Metamucil) 1 pk PO HS PRN PRN Reason: Abdominal Distention Sodium Chloride (Flush - Normal Saline) 10 ml IVF Q12HR [facility] Last Admin: 08/07/17 09:28 Dose: 10 ml Sodium Chloride (Flush - Normal Saline) 10 ml IVF PRN PRN PRN Reason: Saline Flush
--- NOTE | 2017-08-07 17:19 | PDOC.CTH ---
Cardiology Progress Note - Subjective Since stopping digoxin her afib has remains rate controlled in the 70-80's but goes up to the 110-130's when doing anything. - Objective Vital Signs Temp Pulse Resp BP BP Pulse Ox 08/07/17 15:51 97.7 F 72 24 H 158/92 H 97 08/07/17 11:17 97.8 F 85 18 130/67 97 08/07/17 08:10 98 F 76 16 140/70 100 08/07/17 08:00 97.8 F 73 16 100 Weight 144 lb 14.4 oz 08/06/17 08/07/17 08/08/17 06:59 06:59 06:59 Intake Total 890 960 Output Total 875 1300 Balance 15 -340 - Physical Examination General/Neuro: alert & oriented x3, NAD Neck: no JVD present Lungs: unlabored respirations Heart: other: (irreg) Abdomen: NT/ND Extremities: other: (no edema) - Telemetry Telemetry Rhythm: Afib HR 70-130 - Labs Result Diagrams: 08/06/17 04:46 08/07/17 05:05 Troponin/CKMB CK-MB (CK-2) 2.8 ng/mL (0-6.6) 08/02/17 18:34 Troponin I 0.062 ng/mL (< 0.028) H 08/03/17 00:30 - Assessment/Plan 1. New onset Atrial fibrillation with RVR 2. Possibly SSS 2. HTN 3. Dyslipidemia - on Statin medication PLAN: - Continue to hold digoxin and amiodarone. - May need PPM in the near future. - No more pauses since off amio/dig. - Will discuss posisble PPM with Dr. Stevens.
[2017-08-07] MEDS: Losartan Potassium 25 MG TAB PO SCH (20:36)
[2017-08-08 05:14] LABS: Hematocrit 42.8 % (36.0-47.0)
[2017-08-08] MEDS: Apixaban 5 MG TAB PO SCH (10:05)
[2017-08-08] MEDS: Carvedilol 3.125 MG TAB PO SCH ×2 (10:05→17:37)
--- NOTE | 2017-08-08 10:56 | PDOC.CTH ---
<Anastasia Ravi - Last Filed: 08/08/17 10:57> Cardiology Progress Note - Subjective The pt was seen and examined. No overnight events. No cardiac complaints. Spoke with her daughter in law, Ms. Leal, about possible Cardioversion and PM placement procedure. - Objective Vital Signs Temp Pulse Resp BP BP Pulse Ox 08/08/17 08:00 98.2 F 89 18 126/65 98 08/08/17 04:00 98.0 F 81 16 136/83 99 Weight 144 lb 6.4 oz 08/07/17 08/08/17 08/09/17 06:59 06:59 06:59 Intake Total 960 1240 Output Total 1300 1130 Balance -340 110 - Physical Examination General/Neuro: alert & oriented x3 Neck: no JVD present Lungs: CTA Heart: other: (irregular) Abdomen: soft Extremities: other: (No edema) - Telemetry Telemetry Rhythm: Afib 60-137 - Labs Result Diagrams: 08/08/17 04:27 08/08/17 04:27 Troponin/CKMB CK-MB (CK-2) 2.8 ng/mL (0-6.6) 08/02/17 18:34 Troponin I 0.062 ng/mL (< 0.028) H 08/03/17 00:30 - Assessment/Plan 1. New onset Atrial fibrillation with RVR - Digoxin was held since last weekend due to Hx of bradycardia and about 3 sec. of pauses; Remain Afib with HR 60- 130s with Diltiazem 120mg daily, BB kai, and apixaban. Possible Cardioversion or PM placement; waiting for EP input. cont. monitor on tele 2. Possibly SSS - cont. monitor on Tele; possible cardioversion or PM placement 2. HTN - stable with current medication 3. Dyslipidemia - on Statin medication 4. Both ears' Tinnitus - ENT consult by PCP MAR reviewed Review of Systems - Review of Systems Constitutional: reports: no symptoms reported EENTM: reports: no symptoms reported Respiratory: reports: no symptoms reported Cardiac (ROS): reports: no symptoms reported ABD/GI: reports: no symptoms reported : reports: no symptoms reported Musculoskeletal: reports: no symptoms reported Skin: reports: no symptoms reported Neurological: reports: no symptoms reported Endocrine: reports: no symptoms reported Hematologic/Lymphatic: reports: no symptoms reported <Thomas Stevens - Last Filed: 08/08/17 18:40> Cardiology Progress Note - Objective Vital Signs Temp Pulse Resp BP Pulse Ox 08/08/17 12:00 97.3 F L 92 18 122/67 98 08/08/17 08:00 97.3 F L 92 18 126/65 98 Weight 144 lb 6.4 oz 08/07/17 08/08/17 08/09/17 06:59 06:59 06:59 Intake Total 960 1240 Output Total 1300 1130 Balance -340 110 - Labs Result Diagrams: 08/08/17 04:27 08/08/17 04:27 Troponin/CKMB CK-MB (CK-2) 2.8 ng/mL (0-6.6) 08/02/17 18:34 Troponin I 0.062 ng/mL (< 0.028) H 08/03/17 00:30 - Assessment/Plan Pt. seen and evaluated by me. She was also sen by EP today. The decision has been made to proceed with pacemaker insertion in AM and then try to cardiovert in the next few weeks. I explained the procedure and risks for pacemaker insertion. I agree with the A/P by the nurse practitioned except after discussion with EP we will wait for cardioversion until after the pacemaker is inserted.
[2017-08-08] MEDS ORDERED: Sodium Chloride 0.9% 0 ML ONE (13:22)
--- NOTE | 2017-08-08 15:43 | PDOC.PN ---
- Subjective Encounter Start Date: 08/08/17 Encounter Start Time: 08:20 Pt seen for followup re: megan gonzalez. No chest pain, shortness of breath, fevers or chills. - Objective Resuscitation Status: Resuscitation Status DNR:Do Not Resuscitate MAR Reviewed: Yes Vital Signs & Weight: Vital Signs (12 hours) Temp Pulse Resp BP BP Pulse Ox 08/08/17 08:00 98.2 F 89 18 126/65 98 08/08/17 04:00 98.0 F 81 16 136/83 99 Weight Weight 144 lb 6.4 oz I&O: 08/07/17 08/08/17 08/09/17 06:59 06:59 06:59 Intake Total 960 1240 Output Total 1300 1130 Balance -340 110 Result Diagrams: 08/08/17 04:27 08/08/17 04:27 EKG Reviewed by me: Yes (Tele: megan gonzalez) Phys Exam - Physical Examination Constitutional: NAD HEENT: moist MMs Neck: supple Respiratory: clear to auscultation bilateral Cardiovascular: no rub, irregular Gastrointestinal: soft Musculoskeletal: pulses present Neurological: moves all 4 limbs Psychiatric: normal affect Dx/Plan (1) Afib Code(s): I48.91 - UNSPECIFIED ATRIAL FIBRILLATION Status: Acute (2) Tinnitus of both ears Code(s): H93.13 - TINNITUS, BILATERAL Status: Acute (3) Hypertension Code(s): I10 - ESSENTIAL (PRIMARY) HYPERTENSION Status: Chronic (4) Dyslipidemia Code(s): E78.5 - HYPERLIPIDEMIA, UNSPECIFIED Status: Chronic - Plan PT/OT, out of bed/ambulate * . Continue Eliquis, diltiazem. For cardioversion today. Review of Systems - Review of Systems Constitutional: negative: Fever, Chills, Sweats, Weakness, Malaise Cardiovascular: negative: Chest Pain, Palpitations, Orthopnea, Paroxysmal Noc. Dyspnea, Edema, Light Headedness - Medications/Allergies Allergies/Adverse Reactions: Allergies Allergy/AdvReac Type Severity Reaction Status Date / Time No Known Drug Allergies Allergy Verified 08/03/17 00:12 Medications: Current Medications Acetaminophen (Tylenol) 650 mg PO Q4HR PRN PRN Reason: Pain Hydrocodone Bitart/Acetaminophen ([place] 5/325) 1 tab PO Q4H PRN PRN Reason: Moderate Pain (4-6) Apixaban (Eliquis) 5 mg PO BID [facility] Last Admin: 08/08/17 10:05 Dose: 5 mg Calcium Carbonate (Tums) 1,000 mg PO Q4H PRN PRN Reason: Heartburn or Indigestion Carvedilol (Coreg) 3.125 mg PO BID-[facility] Last Admin: 08/08/17 10:05 Dose: 3.125 mg Diltiazem HCl (Cardizem Cd) 120 mg PO 2100 [facility] Last Admin: 08/07/17 20:36 Dose: 120 mg Losartan Potassium (Cozaar) 100 mg PO HS [facility] Last Admin: 08/07/17 20:36 Dose: 100 mg Ondansetron HCl (Zofran) 4 mg IVP Q6H PRN PRN Reason: Nausea/Vomiting Pantoprazole Sodium (Protonix) 40 mg PO DAILY [facility] Last Admin: 08/08/17 10:05 Dose: 40 mg Psyllium Hydrophilic Mucilloid (Metamucil) 1 pk PO HS PRN PRN Reason: Abdominal Distention Sodium Chloride (Flush - Normal Saline) 10 ml IVF Q12HR [facility] Last Admin: 08/08/17 10:05 Dose: 10 ml Sodium Chloride (Flush - Normal Saline) 10 ml IVF PRN PRN PRN Reason: Saline Flush
--- NOTE | 2017-08-08 19:55 | CON ---
DATE OF CONSULTATION: 08/08/2017 ELECTROPHYSIOLOGY CONSULTATION REPORT REFERRING PHYSICIAN: Adwoa Stevens M.D. I am seeing Ms. Lynch at our [facility] telemetry floor as an electrophysiology it architecture consultant. Her problems are: 1. Essential tachybrady syndrome. A. Persistent atrial fibrillation, on presentation, appears to be newly found with rapid rates. B. Episodic bradycardia over 3 seconds. No symptoms. C. Eliquis for anticoagulation was initiated. 2. No significant structural heart disease by 2D echo on 08/04/2017 with LVEF of 60% to 65%, [id number] aortic insufficiency. 3. History of negative stress test in 2012. 4. Chronic risk factors. A. Hyperlipidemia. B. Hypertension. 5. History of diverticulosis. ALLERGIES: None noted. MEDICATIONS: Prior to admission included losartan, Tylenol, and Metamucil and in the hospital, she was initially on Eliquis, Coreg 3.125 twice a day, digoxin , IV diltiazem for rate control, losartan at bedtime, Protonix 40 mg daily. SUBJECTIVE: Ms. Lynch was here admitted by her primary care physician due to persistent dizziness. No loss of consciousness, no stroke-like symptoms are noted. She has no fever, chills, cough, no PND or orthopnea. She did not completely pass out. She has no bleeding issues. At times, I suspect with the rapid rate, she does exhibit some chest pain sensations. OBJECTIVE: VITAL SIGNS: Blood pressure is currently 126/65, heart rate 89, respirations 18 , temperature 98.2 degrees Fahrenheit. GENERAL: This is an alert and oriented woman in no apparent distress. NECK: Supple. Jugular veins are not distended. CHEST: Coarse without crackles. CARDIOVASCULAR: Heart sounds are regular to rate and rhythm. No murmur or gallop. ABDOMEN: Benign. Bowel sounds positive. EXTREMITIES: Lower extremities without edema, clubbing, or cyanosis. Pulses are adequate. NEUROLOGIC: The patient is nonfocal. MUSCULOSKELETAL: No joint swelling or deformities. SKIN: Without rash. DATABASE: The EKG is reviewed. Initial EKG reveals atrial fibrillation, possibly flutter with rapid rates of 153 beats per minute. Subsequent EKG mostly revealed atrial fibrillation with rapid rates until slower rates are documented on telemetry with over 3-1/2 seconds of pausing also seen. She is more symptomatic with the rapid rates than the slower rates though. There is another episode of heart rates in the 20s with over 4-second pauses seen and medication had to be held for that. LABORATORY DATA: White count 6.4, hemoglobin 14, platelet count is 221. INR 1.1 on 08/02/2017. Sodium 141, potassium 4.2, BUN 17, creatinine 0.94. Troponin levels are 0.01, then 0.06 consecutively. ASSESSMENT AND PLAN: Ms. Lynch is an 87-year-old woman with a prior history of hypertension, hyperlipidemia, a negative stress test in 2012 but now presenting with weakness, tiredness, and near syncopal spells likely related to her newly-documented atrial fibrillation with rapid rates. She required multiple rate controlling agents, eventually developed marked bradycardia. Essentially, she has tachybrady syndrome along with her persistent atrial fibrillation. The dilemma is whether to pursue sinus rhythm and see how her heart rates are working versus consider rate support with the pacemaker and continue the rate- controlling strategy. I discussed with this patient. Her main priority is avoiding repeat hospitalization. I think although cardioversion likely would be giving a more desirable effect of sinus rhythm, but if atrial fibrillation recurrences are seen, which is fairly likely even after a successful cardioversion, and hence she might still require AV joy blocking blocking agents which are difficult to administer in view of the bradycardia. Hence I would be considering adding a pacemaker at this point. We anticoagulate and considering a cardioversion after adequate anticoagulation achieved at a later date as an outpatient. I discussed this approach with her including risks and benefits of a pacemaker implant, especially if the bleeding issue was emphasized; hence, she will need to be back on a blood thinner medication. She understands the chance of pneumothorax, tamponade, device malfunctions and seems like she is willing to proceed. We will discuss with Dr. Stevens as well and we will schedule her with her or myself depending on the schedule. Thank you again for allowing me to participate in the care of this patient. CARSON
[2017-08-08] MEDS ORDERED: CEFAZOLIN/Water 2 GM/20 ML SYRINGE SLOW IVP SCH (21:30)
[2017-08-08] MEDS: Losartan Potassium 25 MG TAB PO SCH (21:44)
[2017-08-09] MEDS: Carvedilol 3.125 MG TAB PO SCH (05:20)
[2017-08-09] MEDS ORDERED: CEFAZOLIN 1 GM VIAL ONE (08:36)
[2017-08-09] MEDS ORDERED: CEFAZOLIN/Water 2 GM/20 ML SYRINGE ONE (08:36)
[2017-08-09] MEDS ORDERED: Gentamicin 80 MG/2 ML VIAL ONE (09:25)
[2017-08-09] MEDS: HYDROcodone/Acetaminophen 5/325 mg Tablet PO PRN ×2 (10:28→16:29)
--- NOTE | 2017-08-09 13:07 | RAD ---
PORTABLE UPRIGHT CHEST: History: Pacemaker placement. Comparison: 08-02-17 FINDINGS: Interval placement of a left sided pacemaker is present. No signs of pneumothorax. No other interval change. IMPRESSION: Post pacemaker placement. No signs of pneumothorax. POS: OFF
--- NOTE | 2017-08-09 14:09 | PDOC.PN ---
- Subjective Encounter Start Date: 08/09/17 Encounter Start Time: 14:07 Pt seen for followup re: atrial fibrillation. Says she feels better. Soreness at surgical site. No shortness of breath, fevers or chills. - Objective Resuscitation Status: Resuscitation Status DNR:Do Not Resuscitate MAR Reviewed: Yes Vital Signs & Weight: Vital Signs (12 hours) Temp Pulse Resp BP BP Pulse Ox 08/09/17 12:00 97.7 F 106 H 18 137/83 95 08/09/17 04:00 97.7 F 75 18 131/73 98 Weight Weight 147 lb 12.8 oz I&O: 08/08/17 08/09/17 08/10/17 06:59 06:59 06:59 Intake Total 1240 650 Output Total 1130 1150 Balance 110 -500 Result Diagrams: 08/08/17 04:27 08/08/17 04:27 EKG Reviewed by me: Yes (Tele: paced rhythm) Phys Exam - Physical Examination Constitutional: NAD HEENT: moist MMs Respiratory: no wheezing, no rales, no rhonchi, clear to auscultation bilateral Cardiovascular: RRR Gastrointestinal: soft Musculoskeletal: pulses present Neurological: moves all 4 limbs Psychiatric: normal affect Skin: no rash Dx/Plan (1) Afib Code(s): I48.91 - UNSPECIFIED ATRIAL FIBRILLATION Status: Acute (2) Tinnitus of both ears Code(s): H93.13 - TINNITUS, BILATERAL Status: Acute (3) Hypertension Code(s): I10 - ESSENTIAL (PRIMARY) HYPERTENSION Status: Chronic (4) Dyslipidemia Code(s): E78.5 - HYPERLIPIDEMIA, UNSPECIFIED Status: Chronic - Plan * . s/p PPM placement today. If stable, home tomorrow. Should followup with ENT as outpatient re: rafat tinnitus. Monitor vital signs and titrate antihypertensives as needed. Review of Systems - Review of Systems Constitutional: negative: Fever, Chills, Sweats, Weakness, Malaise Cardiovascular: negative: Chest Pain, Palpitations, Orthopnea, Paroxysmal Noc. Dyspnea, Edema, Light Headedness - Medications/Allergies Allergies/Adverse Reactions: Allergies Allergy/AdvReac Type Severity Reaction Status Date / Time No Known Drug Allergies Allergy Verified 08/03/17 00:12 Medications: Current Medications Acetaminophen (Tylenol) 650 mg PO Q4HR PRN PRN Reason: Pain Hydrocodone Bitart/Acetaminophen ([place] 5/325) 1 tab PO Q4H PRN PRN Reason: Moderate Pain (4-6) Last Admin: 08/09/17 10:28 Dose: 1 tab Apixaban (Eliquis) 5 mg PO BID [facility] Calcium Carbonate (Tums) 1,000 mg PO Q4H PRN PRN Reason: Heartburn or Indigestion Carvedilol (Coreg) 6.25 mg PO BID-[facility] Cefazolin Sodium (Ancef) 2 gm SLOW IVP WILLCALL [facility] Stop: 08/09/17 19:00 Digoxin (Lanoxin) 0.125 mg PO DAILY [facility] Diltiazem HCl (Cardizem Cd) 120 mg PO 2100 [facility] Last Admin: 08/08/17 21:44 Dose: 120 mg Losartan Potassium (Cozaar) 100 mg PO HS [facility] Last Admin: 08/08/17 21:44 Dose: 100 mg Ondansetron HCl (Zofran) 4 mg IVP Q6H PRN PRN Reason: Nausea/Vomiting Pantoprazole Sodium (Protonix) 40 mg PO DAILY [facility] Last Admin: 08/09/17 10:28 Dose: 40 mg Psyllium Hydrophilic Mucilloid (Metamucil) 1 pk PO HS PRN PRN Reason: Abdominal Distention Sodium Chloride (Flush - Normal Saline) 10 ml IVF Q12HR [facility] Last Admin: 08/09/17 10:31 Dose: 10 ml Sodium Chloride (Flush - Normal Saline) 10 ml IVF PRN PRN PRN Reason: Saline Flush
[2017-08-09] MEDS: Carvedilol 6.25 MG TAB PO SCH (17:55)
[2017-08-09] MEDS: Losartan Potassium 25 MG TAB PO SCH (21:02)
--- NOTE | 2017-08-09 22:02 | PRG ---
DATE OF SERVICE: 08/09/2017 SUBJECTIVE: Ms. Lynch seems to be doing well today after her pacemaker implant; some operative sit e discomfort is noted. OBJECTIVE DATA: VITAL SIGNS: Blood pressure is 199/95, heart rate 87, respirations rate 24 and temperature 97.6 deg waqas Fahrenheit. GENERAL: This is an alert and oriented woman in no apparent distress. NECK: Supple. Jugular veins not distended. CHEST: Coarse without crackles. Left precordial pacemaker site with a minimal hematoma. ABDOMEN: Benign, bowel sounds positive. EXTREMITIES: Lower extremity without edema, clubbing or cyanosis. DATABASE: EKG telemetry strips reviewed with continued atrial fibrillation. ASSESSMENT AND PLAN: Ms. Lynch is a pleasant 87-year-old female with history of persisting the atr ial fibrillation, which is newly found. She also has marked bradycardia, and a tachybrady syndrome was diagnosed. Our plan with Dr. Stevens was to put a pacemaker in, which was done today. She will li perez need to resume anticoagulation as soon as possible and also maximize her AV joy blocking agen ts to avoid further tachyarrhythmias. Once she is stable , she could be concerned for cardiove rsion with or without antiarrhythmic support. I am happy to follow her in the office.
--- NOTE | 2017-08-09 23:10 | CCL ---
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 W e hope that she will be converted back to a normal sinus rhythm and be able to control her heart rat e with medications due to severe bradycardia associated with medical management of the atrial fibril lation. This is a recent onset for this lady likely starting less than 1-2 days before her admissio n, she was advised to undergo a dual-chamber pacemaker insertion with the anticipation that we will be able to convert her back to sinus rhythm. She was taken to the cardiac rn labor and delivery with the procedu re without difficulties or complications. She was implanted with a chamber pacemaker from [employer] an [employer] with two screw in leads, one in the atrium and one in the ventricle. There were no diffi culties or complications encountered. The pacemaker will be set with the upper rate of 120. The lo wer rate will be set at 60.
[2017-08-10 05:20] LABS: Hematocrit 42.7 % (36.0-47.0)
[2017-08-10 05:42] VITALS: BMI 22.4
[2017-08-10] MEDS: Digoxin 0.125 MG TAB PO SCH (09:26)
[2017-08-10] MEDS: Carvedilol 6.25 MG TAB PO SCH ×2 (09:27→17:18)
--- NOTE | 2017-08-10 11:12 | PDOC.PN ---
- Subjective Encounter Start Date: 08/10/17 Encounter Start Time: 11:11 Ms. Lynch does not have any complaints. She had some soreness on the left side , in her shoulder area, but this had improved. - Objective Resuscitation Status: Resuscitation Status DNR:Do Not Resuscitate MAR Reviewed: Yes Vital Signs & Weight: Vital Signs (12 hours) Temp Pulse Resp BP BP Pulse Ox 08/10/17 09:27 145/98 H 08/10/17 09:26 132 H 08/10/17 07:21 97.1 F L 114 H 13 145/98 H 97 08/10/17 04:00 97.7 F 71 18 128/74 99 Weight Weight 143 lb 3.2 oz I&O: 08/09/17 08/10/17 08/11/17 06:59 06:59 06:59 Intake Total 650 1140 480 Output Total 1150 1350 Balance -500 -210 480 Result Diagrams: 08/10/17 04:06 08/10/17 04:06 Phys Exam - Physical Examination HEENT: PERRLA Respiratory: no wheezing, no rales, no rhonchi, clear to auscultation bilateral Cardiovascular: RRR, no significant murmur, no rub Gastrointestinal: soft, non-tender, positive bowel sounds Musculoskeletal: pulses present + bruising in the left upper chest, no fluctuance, no crepitus Dx/Plan (1) Tachy-kirsten syndrome Code(s): I49.5 - SICK SINUS SYNDROME Status: Acute (2) Atrial fibrillation with RVR Code(s): I48.91 - UNSPECIFIED ATRIAL FIBRILLATION Status: Acute (3) Tinnitus of both ears Code(s): H93.13 - TINNITUS, BILATERAL Status: Acute (4) Dyslipidemia Code(s): E78.5 - HYPERLIPIDEMIA, UNSPECIFIED Status: Chronic (5) Hypertension Code(s): I10 - ESSENTIAL (PRIMARY) HYPERTENSION Status: Chronic - Plan * AFB with Tachy-kirsten syndrome- patient is s/p pace-maker placement * HR has been a little elevated- patient is currently on Digoxin, and Carvediolol * Patient is on Eliquis for CVA prevention * HTN- blood pressure has been labile- will monitor * Disposition as per Cardiology.
--- NOTE | 2017-08-10 12:48 | PRG ---
DATE OF SERVICE: 08/10/2017 SUBJECTIVE: Mrs. Lynch is seems to be doing well one day after her pacemaker implant. She has notes no change in her wound and her pain has subsided. OBJECTIVE: VITAL SIGNS: Blood pressure is 155/98, heart rate 122, respirations 16, temperature 97.7 degrees Fahrenheit. GENERAL: She is alert and oriented woman, in no apparent distress. NECK: Supple. Jugular veins not distended. CHEST: Coarse without crackles. CARDIOVASCULAR: Heart sounds are regular to rate and rhythm. No murmur or gallop. Left precordial pacemaker site with minimal from yesterday. ABDOMEN: Benign. Bowel sounds are positive. DATABASE: The telemetry strips reveals atrial fibrillation with occasional corrected control. X-ray from 08/09/2017 shows post pacemaker placement with no signs of pneumothorax. ASSESSMENT AND PLAN: 1. Mrs. Lynch is an 87-year-old female with prior history of newly found atrial fibrillation with tachybrady syndrome. She underwent a dual-chamber pacemaker placement yesterday. She still has poorly controlled ventricular rate. I think we will need to increase her rate control. I am increasing her carvedilol today. Once adequate controlled, she should be able to return home with anticoagulation resumed. After at least 3 weeks of anticoagulation without interruption, she should be able to undergo a cardioversion as we discussed with Dr. Stevens. At that point, further consideration could be given to the antiarrhythmic medications if recurrence of atrial fibrillation noted. 2. Long-term atrial ATP therapy could be also considered after lead maturation. 3. Resume oral anticoagulation with eliqyuis as per Dr. Stevens. 4. I am happy to see this lady back in 6 weeks for a followup. [facility]
--- NOTE | 2017-08-10 12:49 | PDOC.CTH ---
<Thomas Stevens - Last Filed: 08/10/17 12:29> Cardiology Progress Note - Objective Vital Signs Temp Pulse Resp BP BP Pulse Ox 08/10/17 11:13 98 F 81 16 127/58 L 96 08/10/17 09:27 145/98 H 08/10/17 09:26 132 H 08/10/17 07:21 97.1 F L 114 H 13 145/98 H 97 08/10/17 04:00 97.7 F 71 18 128/74 99 Weight 143 lb 3.2 oz 08/09/17 08/10/17 08/11/17 06:59 06:59 06:59 Intake Total 650 1140 480 Output Total 1150 1350 Balance -500 -210 480 - Labs Result Diagrams: 08/10/17 04:06 08/10/17 04:06 Troponin/CKMB CK-MB (CK-2) 2.8 ng/mL (0-6.6) 08/02/17 18:34 Troponin I 0.062 ng/mL (< 0.028) H 08/03/17 00:30 <Anastasia Ravi - Last Filed: 08/10/17 17:44> Cardiology Progress Note - Subjective The pt seen and examined. No overnight events. No cardiac complaints. - Objective Vital Signs Temp Pulse Resp BP BP Pulse Ox 08/10/17 17:18 104/57 L 08/10/17 15:29 98.5 F 81 14 104/57 L 97 08/10/17 11:13 98 F 81 16 127/58 L 96 08/10/17 09:27 145/98 H 08/10/17 09:26 132 H 08/10/17 07:21 97.1 F L 114 H 13 145/98 H 97 Weight 143 lb 3.2 oz 08/09/17 08/10/17 08/11/17 06:59 06:59 06:59 Intake Total 650 1140 480 Output Total 1150 1350 Balance -500 -210 480 - Physical Examination General/Neuro: alert & oriented x3 Neck: no JVD present Lungs: CTA Heart: other: (Irregular) Abdomen: soft Extremities: other: (No edema) - Telemetry Telemetry Rhythm: Afib with AV paced - Labs Result Diagrams: 08/10/17 04:06 08/10/17 04:06 Troponin/CKMB CK-MB (CK-2) 2.8 ng/mL (0-6.6) 08/02/17 18:34 Troponin I 0.062 ng/mL (< 0.028) H 08/03/17 00:30 - Assessment/Plan 1. New onset Atrial fibrillation with RVR - Rate well controlled with Digoxin 0.125mg, BBlocker, and Eliquis 5mg BID; Increase Diltiazem to 240mg daily; cont. monitor on tele; RUBA and Cardioversion tomorrow; 2. Tachy-kirsten syndrome - S/p PM placement yesterday; cont. monitor on Tele 2. HTN - stable with current medication 3. Dyslipidemia - on Statin medication 4. Both ears' Tinnitus - ENT consult by PCP JOSE reviewed Review of Systems - Review of Systems Constitutional: reports: no symptoms reported EENTM: reports: no symptoms reported Respiratory: reports: no symptoms reported Cardiac (ROS): reports: no symptoms reported ABD/GI: reports: no symptoms reported : reports: no symptoms reported Musculoskeletal: reports: no symptoms reported Skin: reports: no symptoms reported Neurological: reports: no symptoms reported
[2017-08-10] MEDS: Apixaban 5 MG TAB PO SCH (21:02)
[2017-08-10] MEDS: HYDROcodone/Acetaminophen 5/325 mg Tablet PO PRN (21:03)
[2017-08-10] MEDS: Losartan Potassium 25 MG TAB PO SCH (21:03)
[2017-08-11] MEDS ORDERED: Propofol 200 MG/20 ML VIAL ONE (09:41)
--- NOTE | 2017-08-11 09:48 | PRG ---
DATE OF SERVICE: 08/11/2017 SUBJECTIVE: Ms. Lynch seems to be doing well, currently not aware of the palpitations, but continu es to have atrial fibrillation with some elevated heart rates, although overnight that has improved. OBJECTIVE: VITAL SIGNS: Blood pressure is 136/74, heart rate 67, respirations 14, temperature 97.7 degrees Fah renheit. GENERAL: She is alert and oriented woman in no apparent distress. NECK: Supple. Jugular veins not distended. CHEST: Coarse, no crackles. CARDIOVASCULAR: Heart sounds are irregularly irregular. S1 and S2 variable. No murmur or gallop. ABDOMEN: Benign. Bowel sounds positive. EXTREMITIES: Lower extremities without edema, clubbing or cyanosis. DATABASE: Telemetry strips reveals atrial fibrillation. LABORATORY DATA: None new. ASSESSMENT AND PLAN: Ms. Lynch is a pleasant 87-year-old woman who has atrial fibrillation with ta chybrady issues. She underwent a pacing implantation for this and now we are attempting to restore sinus rhythm now that she is back on anticoagulation. Dr. Stevens is planning RUBA and cardioversion. Post-cardioversion could be considered for antiarrhythmic agents, choice would be amiodarone, Multaq versus sotalol. She will likely require high dose of heart rate lowering drugs as well to avoid ra pid rates in case of atrial fibrillation recurrence. Continue the Eliquis anticoagulation. Conside r turning atrial ATPs on after lead maturation.
[2017-08-11] MEDS ORDERED: Amiodarone HCl 150 MG, Admixture Fee 1 EACH in Dextrose 5% in Water 100 ML IVPB SCH ×3 (10:15)
[2017-08-11] MEDS: Apixaban 5 MG TAB PO SCH (12:35)
[2017-08-11] MEDS: Carvedilol 6.25 MG TAB PO SCH (12:35)
[2017-08-11] MEDS: Digoxin 0.125 MG TAB PO SCH (12:37)
[2017-08-11 15:17] VITALS: BP 134/62; TEMP 98
--- NOTE | 2017-08-11 16:05 | ECHO ---
PROCEDURE NOTE: Date: 08/11/17 PROCEDURE: Transesophageal echocardiogram. INDICATION FOR PROCEDURE: 87-year-old female who was admitted with atrial fibrillation with rapid ventricular response, unable to control heart rate. She also has underlying sick sinus syndrome. She eventually underwent pacema ker insertion. She continued to have bouts of significant tachycardia associated with the atrial fib rillation. We had adjusted her medications, but it was felt best that we proceed with early transeso phageal echocardiogram for evaluation to rule out evidence of left atrial or left atrial appendage t hrombus and then to proceed with an electrical cardioversion of her atrial fibrillation back to norm al sinus rhythm. PROCEDURE IN DETAIL: The patient was taken to the recovery area where she underwent short acting propofol. The transesoph ageal probe was easily passed down the distal esophagus. IMPRESSION: Left ventricle ejection fraction of 55-60%. Left atrial size of 4.3-4.8 cm in diameter. There was no evidence of left atrial thrombus or smoke formation. No evidence of left atrial appendage thrombus. Mitral valve showed mild mitral valve regurgitation. The valvular structures appeared to be normal . The aortic valve has mild aortic valve sclerosis and moderate aortic valve regurgitation. Tricuspi d valve shows moderate to severe tricuspid valve regurgitation. The pacemaker leads were intact and did not have any evidence of vegetations or thrombus formation.
--- NOTE | 2017-08-11 16:08 | OP ---
ELECTRICAL CARDIOVERSION: Date: 08/11/17 Immediately after the patient underwent a transesophageal echocardiogram to rule out evidence of int racardiac thrombi or masses, or left atrial or left atrial appendage thrombus, the patient then was continued with short acting propofol. Using one attempt at 200 joules, she was successfully converte d from atrial fibrillation back to normal sinus rhythm, with heart rate in the 70s. There was compli cation or difficulties encountered. The patient tolerated the procedure well. IMPRESSION: Successful cardioversion of atrial fibrillation back to normal sinus rhythm.
--- NOTE | 2017-08-11 19:18 | DIS ---
DATE OF ADMISSION: 08/02/2017 DATE OF DISCHARGE: 08/11/2017 PRIMARY CARE PHYSICIAN: Dami Ricardo M.D. DISCHARGE DISPOSITION: Home. PRIMARY DISCHARGE DIAGNOSES: 1. Atrial fibrillation. 2. Hypertension. 3. Hyperlipidemia. 4. Tachycardia-bradycardia syndrome. DISCHARGE MEDICATIONS: Include losartan 100 mg at bedtime, psyllium husk 2 tablespoons daily, Cardi zem CD 180 mg daily, carvedilol 6.25 mg twice daily, Eliquis 5 mg twice a day, amiodarone 200 mg twi ce daily and acetaminophen 650 mg q.4 hours as needed. PROCEDURES DONE DURING ADMISSION: The patient had an echocardiogram in which the ejection fraction was 60% to 65%. There was normal diastolic function and no regional wall motion abnormalities, no s ignificant valvular disease. The patient had the placement of a pacemaker and also had an electroca rdioversion. CODE STATUS: DNR. ALLERGIES: No known drug allergies. HOSPITAL COURSE: Ms. Lynch is a very pleasant 87-year-old female who was brought in by her primary care physician after she had noticed some severe dizziness and feeling lack of energy. She was fou nd to be in atrial fibrillation with rapid ventricular response. She was admitted and started on IV Cardizem and placed on a Cardizem drip. She had some episodes of difficulty with controlling her h eart rate as she had episodes of bradycardia as well as the tachycardia. For this reason, Electroph ysiology was consulted and it was felt that the best option for the patient was for the placement of a pacemaker, in this way, the patient's tachyarrhythmia could be better maintained. She underwent the placement of the pacemaker on 08/10/2017, the following day she had an electrical cardioversion. She tolerated the procedure well and was subsequently able to be discharged home and she is to hav e close followup with her primary care physician in 1 to 2 weeks and also with Cardiology as previou chayito instructed.
== END 2017-08-11 15:50 | disposition home or self-care (01) | DRG 243 ==
LOC: 2NO 17:03
PROVIDERS: ADMIT Internal Medicine; ATTEND Internal Medicine
PROC: 0JH606Z Insertion of Pacemaker, Dual Chamber into Chest Subcutaneous Tissue and Fascia, Open Approach (ICD-10-PCS; 2017-08-09)
PROC: 02H63JZ Insertion of Pacemaker Lead into Right Atrium, Percutaneous Approach (ICD-10-PCS; 2017-08-09)
PROC: 02HK3JZ Insertion of Pacemaker Lead into Right Ventricle, Percutaneous Approach (ICD-10-PCS; 2017-08-09)
PROC: 5A2204Z Restoration of Cardiac Rhythm, Single (ICD-10-PCS; principal; 2017-08-11)
PROC: B24BZZ4 Ultrasonography of Heart with Aorta, Transesophageal (ICD-10-PCS; 2017-08-11)
DX: I49.5 Sick sinus syndrome (principal); I48.1 Persistent atrial fibrillation; I35.8 Other nonrheumatic aortic valve disorders; I10 Essential (primary) hypertension; M19.012 Primary osteoarthritis, left shoulder; E78.5 Hyperlipidemia, unspecified; K57.90 Diverticulosis of intestine, part unspecified, without perforation or abscess without bleeding; Z88.8 Allergy status to other drugs, medicaments and biological substances; R00.1 Bradycardia, unspecified; Z79.01 Long term (current) use of anticoagulants; Z66 Do not resuscitate; E78.00 Pure hypercholesterolemia, unspecified; K21.9 Gastro-esophageal reflux disease without esophagitis; M85.80 Other specified disorders of bone density and structure, unspecified site; H93.13 Tinnitus, bilateral
CPT/HCPCS: 33208; 36415; 71010; 80048; 80053; 81001; 82553; 82565; 84443; 84484; 85014; 85018; 85025; 85049; 85610; 85730; 92960; 93306; 93312; 93798; A4216; C1785; C1898; J0282; J0690; J1160; J1580; J2704; J7050; J7070

== ENCOUNTER 2018-03-25 13:44 | Inpatient (IN) | payer MEDICARE, OTHER ==
[2018-03-25 14:22] LABS: #Basophils 0.1 thou/uL (0.0-0.2); #Eosinphils 0.3 thou/uL (0.0-0.7); #Monocytes 0.6 thou/uL (0.11-0.59); #Neutrophils 4.3 thou/uL (1.40-6.50); %Basophils 1.1 % (0.0-1.0); %Eosinophils 4.1 % (0.0-10.0); %Lymphocytes 16.8 % (21.0-51.0); %Monocytes 9.6 % (0.0-10.0); %Neutrophils 68.5 % (42.0-75.0); Hemoglobin 12.7 g/dL (12.0-16.0); Mean Corpuscular HGB CONC 34.2 g/dL (32.0-36.0); Mean Corpuscular Hemoglobin 34.8 pg (27.0-31.0); Mean Platelet Volume 7.2 fL (7.4-10.4); Platelet Count 191 thou/uL (130-400); RBC Distribution Width 12.1 % (11.5-14.5); Red Blood Cell (RBC) Count 3.63 mill/uL (4.20-5.40); White Blood Cell (WBC) Count 6.2 thou/uL (4.8-10.8)
[2018-03-25] MEDS ORDERED: Fentanyl 100 MCG/2 ML VIAL ONE (14:25)
--- NOTE | 2018-03-25 14:26 | RAD ---
LEFT HIP 2 VIEWS: HISTORY: Fall. Left hip injury. FINDINGS: Impacted intratrochanteric fracture is present with mild varus angulation and minimal anterior displa cement. Mild osteoarthritic changes left hip. IMPRESSION: Intertrochanteric left hip fracture. POS: TABITHA
--- NOTE | 2018-03-25 14:27 | RAD ---
CHEST 1 VIEW: HISTORY: Chest pain. COMPARISON: 08/09/17. FINDINGS: Cardiac silhouette is magnified by projection. Pulmonary vasculature unremarkable. Mediastinum midl ine with aortic calcification and a dual-led left subclavian cardiac electronic device. No lobar con solidation or evidence of pneumothorax. IMPRESSION: Atherosclerosis. No active cardiopulmonary abnormalities are otherwise demonstrated. POS: NOBLE
[2018-03-25 14:39] LABS: Anion Gap 13 mmol/L (10-20); BUN (Urea Nitrogen) 16 mg/dL (9.8-20.1); CK (CPK) 83 U/L (29-168); Calc. Creatinine Clearance 0 mL/min (70-130); Calcium 8.9 mg/dL (7.8-10.44); Carbon Dioxide 24 mmol/L (23-31); Chloride 107 mmol/L (98-107); Estimated GFR-MDRD 61; Glucose 111 mg/dL (83-110); Potassium 4.3 mmol/L (3.5-5.1); Sodium 140 mmol/L (136-145)
[2018-03-25 14:42] LABS: CKMB 1.5 ng/mL (0-6.6); Troponin I Less than 0.010 ng/mL (< 0.028)
[2018-03-25] MEDS ORDERED: Ondansetron ODT 4 MG TAB ONE (15:50)
[2018-03-25] MEDS ORDERED: Dextrose 5% in Water 1,000 ML IV PRN (17:12)
[2018-03-25] MEDS ORDERED: Dextrose 50% Abboject 50 ML SYRINGE SLOW IVP PRN (17:12)
[2018-03-25] MEDS ORDERED: Ondansetron HCl/PF 4 MG/2 ML Vial IVP PRN (17:12)
[2018-03-25 17:16] VITALS: BMI 26.5
[2018-03-25] MEDS: Sodium Chloride 0.9% 1,000 ML IV SCH (17:32)
[2018-03-25] MEDS: Acetaminophen 1,000 MG in Premix Bag 1 BAG IVPB SCH (18:03)
--- NOTE | 2018-03-25 19:10 | HP ---
DATE OF ADMISSION: 03/25/2018 ADMITTING PHYSICIAN: Dr. Noe Boothe. CONSULTING PHYSICIAN: Dr. Benji Sanchez. HISTORY OF PRESENT ILLNESS: Ms. Lynch is an 87-year-old female, who was in her kitchen when she had a fall. She reports she was walking into her kitchen when she fell, but is not sure how the fall happened. She denies LOC. She complained of pain to the left hip. She was transported to [facility] via [facility]. Ms. Lynch normally walks 3 miles per day without trouble. She does not use a walker, cane, or any assistive devices. Pain is exacerbated by movement. Pain is relieved by the administration of narcotic IV analgesia. PAST MEDICAL HISTORY: 1. Hypertension. 2. Hyperlipidemia. 3. Diverticulosis. 4. Atrial fibrillation. 5. Degenerative joint disease. PAST SURGICAL HISTORY: 1. Right knee surgery, unknown year. 2. Colon surgery in 2004. 3. Pacemaker placement in 2016. SOCIAL HISTORY: The patient lives at home alone. Alcohol 1-2 glasses of wine nightly, tobacco none, drugs none. CURRENT MEDICATIONS: The patient is unable to recall her current medications. She does report she has a list and will bring that. This report will be updated when it is obtained. She reports that she takes one blood pressure medication twice daily, but is unable to recall the name of it. LABORATORY DATA: CBC: WBC 6.2, RBC 3.63, hemoglobin 12.7, hematocrit 37.0, platelets 191. Chemistry: Sodium 140, potassium 4.3, chloride 107, carbon dioxide 24, BUN 16, creatinine 0.88, glucose 111, calcium 8.9. Creatine kinase 83. Troponin less than 0.010. DIAGNOSTIC IMAGING: Left intertrochanteric hip fracture. REVIEW OF SYSTEMS: CONSTITUTIONAL: The patient denies chills, fever, recent weight loss or generalized malaise. HEENT: Denies vision changes, denies otorrhea, rhinorrhea, sore throat or neck pain. PULMONARY: Denies cough, denies shortness of breath. CARDIOVASCULAR: Denies chest pain. Denies palpitations. Reports history of atrial fibrillation, history of pacemaker placement in 07/2017. GASTROINTESTINAL: Denies abdominal pain, constipation, nausea, vomiting or diarrhea. GENITOURINARY: Denies hematuria, dysuria or frequency. MUSCULOSKELETAL: Reports fall, left hip pain. SKIN: Denies rashes or skin changes. NEUROLOGIC: Denies headache, denies dizziness, denies focal deficit. HEMOLYMPHATIC: Denies abnormal bleeding. PHYSICAL EXAMINATION: VITAL SIGNS: Blood pressure 189/95, pulse 70, respirations 16, O2 sat 100% on room air, temperature 97.6. GENERAL: Elderly female lying on bed, in no acute distress, nontoxic appearing. HEENT: Atraumatic, normocephalic. NECK: Trachea midline. No posterior neck tenderness. PULMONARY: Bilateral breath sounds clear. No respiratory distress. CARDIAC: Regular rate and rhythm. Heart sounds normal. ABDOMEN: Soft, nontender, nondistended. EXTREMITIES: Pain with movement to left hip. Pulses palpable in all extremities. Neurovascular intact all extremities. NEUROLOGIC: GCS 15. Awake, alert, oriented x3. No focal deficits. SKIN: Warm and dry, normal in color. ASSESSMENT AND PLAN: 1. Status post ground level fall. 2. Left intertrochanteric hip fracture. 3. Acute traumatic pain. 4. History of hypertension, present on admission. 5. History of pacemaker placement. PLAN: 1. Admit to the hospital, Trauma Services. 2. Consult to Dr. Sanchez, Orthopedics. 3. Consult to Cardiology. The patient with recent pacemaker placement. She is patient of Dr. Stevens. 4. Regular diet until midnight. N.p.o. after midnight, IV fluids. 5. IV Tylenol and IV morphine for analgesia. 6. Obtain home medications and restart. 7. SCDs for DVT prophylaxis. Chemical thrombosis prophylaxis when cleared by Orthopedic Surgery. 8. Pepcid for gastritis prophylaxis. This patient was reviewed with Dr. Boothe, who agrees with plan. MTDD
[2018-03-25] MEDS ORDERED: hydrALAZINE 20 MG/ML VIAL SLOW IVP PRN (19:24)
[2018-03-25] MEDS ORDERED: Carvedilol 25 MG TAB PO SCH (19:30)
--- NOTE | 2018-03-25 19:47 | CON ---
DATE OF CONSULTATION: 03/25/2018 CHIEF COMPLAINT: Left hip pain. HISTORY OF PRESENT ILLNESS: Ms. Lynch is an 87-year-old female who lives independently. She was wa lking at home this afternoon when she lost her balance and fell. She denied loss of consciousness or dizziness. She landed on her left side. She was unable to ambulate. She had severe pain. At [place], she ambulates 3 miles per day and is very active. She does not use a cane or walker at [facility]. She was taken to the emergency department by EMS and an intertrochanteric left femur fracture was identified. She has been admitted to the hospital. She is currently comfortable. She has received pain medication. Orthopedics was consulted to take care of her fracture. PAST MEDICAL HISTORY: Atrial fibrillation with history of pacemaker placement in 06/2017, history of hypertension, hyperlipidemia, and diverticulosis. PAST SURGICAL HISTORY: Pacemaker placement, history of colon surgery and knee surgery. PSYCHIATRIC HISTORY: Negative. SOCIAL HISTORY: The patient denies tobacco, alcohol, or drug use. Again, she lives independently. REVIEW OF SYSTEMS: Positive for left hip pain with movement, otherwise negative 10-point review of s ystems. IMAGES: X-rays of the left hip and pelvis demonstrate an intertrochanteric femur fracture with mild displacement. PHYSICAL EXAMINATION: VITAL SIGNS: Blood pressure is 189/95, pulse is 70, respiratory rate 16, temperature is 97.6, 100% o xygen saturation on room air. GENERAL: She is alert, lying supine, in no apparent distress. HEENT: Normocephalic, atraumatic. RESPIRATORY: Breathing comfortably. CARDIOVASCULAR: Pulses palpable and regular. ABDOMEN: Soft, nontender, nondistended. MUSCULOSKELETAL: The patient's left lower extremity is slightly shortened. She has pain with hip mo tion. She is neurovascularly intact in the foot and ankle. She has a palpable dorsalis pedis pulse. She is able to wiggle the toes. IMPRESSION: Left intertrochanteric femur fracture in an elderly female. PLAN: At this point, I would recommend dynamic hip screw fixation for the patient's intertrochanteri c fracture. This will allow early mobilization and hopefully prevent complications of prolonged bed rest. She is at elevated risk for surgery given her history of cardiac disease. She also has elevat ed risk given her age. I have reviewed risks and benefits of surgery and the patient wants to procee d. She will have appropriate antibiotic prophylaxis and DVT prophylaxis. She should be n.p.o. at [facility].
[2018-03-25 20:28] LABS: INR-International Normal Ratio 1.2; PTT 26.4 SEC (22.9-36.1); Prothrombin Time 15.2 SEC (12.0-14.7)
[2018-03-26] MEDS: Acetaminophen 1,000 MG in Premix Bag 1 BAG IVPB SCH ×4 (00:14→18:20)
[2018-03-26] MEDS: Sodium Chloride 0.9% 1,000 ML IV SCH ×3 (02:44→23:36)
[2018-03-26 04:52] LABS: #Eosinphils 0.1 thou/uL (0.0-0.7); #Lymphocytes 1.4 thou/uL (1.20-3.40); #Monocytes 0.8 thou/uL (0.11-0.59); #Neutrophils 4.9 thou/uL (1.40-6.50); %Basophils 0.3 % (0.0-1.0); %Eosinophils 1.8 % (0.0-10.0); %Lymphocytes 18.7 % (21.0-51.0); %Monocytes 11.2 % (0.0-10.0); %Neutrophils 68.1 % (42.0-75.0); Hemoglobin 10.6 g/dL (12.0-16.0); Mean Corpuscular HGB CONC 33.4 g/dL (32.0-36.0); Mean Corpuscular Hemoglobin 33.8 pg (27.0-31.0); Mean Platelet Volume 6.8 fL (7.4-10.4); Platelet Count 164 thou/uL (130-400); Red Blood Cell (RBC) Count 3.13 mill/uL (4.20-5.40); White Blood Cell (WBC) Count 7.2 thou/uL (4.8-10.8)
[2018-03-26 05:21] LABS: Anion Gap 9 mmol/L (10-20); BUN (Urea Nitrogen) 13 mg/dL (9.8-20.1); Calc. Creatinine Clearance 57 mL/min (70-130); Carbon Dioxide 25 mmol/L (23-31); Chloride 107 mmol/L (98-107); Estimated GFR-MDRD 75; Glucose 100 mg/dL (83-110); Magnesium 2.1 mg/dL (1.6-2.6); Phosphorus 3.7 mg/dL (2.3-4.7); Potassium 3.9 mmol/L (3.5-5.1); Sodium 137 mmol/L (136-145)
[2018-03-26] MEDS ORDERED: Fentanyl 250 MCG/5 ML VIAL ONE (07:30)
[2018-03-26] MEDS ORDERED: CEFAZOLIN/Water 2 GM/20 ML SYRINGE ONE (07:46)
[2018-03-26] MEDS ORDERED: CEFAZOLIN/Water 2 GM/20 ML SYRINGE SLOW IVP SCH (08:00)
[2018-03-26] MEDS ORDERED: Ondansetron HCl/PF 4 MG/2 ML Vial IVP PRN ×2 (08:17→09:42)
[2018-03-26] MEDS ORDERED: Ketorolac Tromethamine 30 MG/ML VIAL IM PRN (08:17)
[2018-03-26] MEDS ORDERED: Fleet Enema 133 ML BOT PR PRN (08:17)
[2018-03-26] MEDS ORDERED: Fentanyl 100 MCG/2 ML VIAL SLOW IVP PRN (08:17)
[2018-03-26] MEDS ORDERED: Bisacodyl 10 MG SUPP PR PRN (08:17)
[2018-03-26] MEDS ORDERED: Cepastat Lozenges 1 LOZ PO PRN (08:17)
[2018-03-26] MEDS ORDERED: Ondansetron ODT 4 MG TAB PO PRN (08:17)
[2018-03-26] MEDS ORDERED: Milk Of Magnesia 30 ML UDCUP PO PRN (08:17)
[2018-03-26] MEDS ORDERED: Famotidine/PF 20 mg/2ml Vial SLOW IVP SCH (09:00)
[2018-03-26] MEDS ORDERED: Promethazine HCl 25 MG/ML VIAL IM PRN (09:42)
[2018-03-26] MEDS ORDERED: Promethazine HCl 25 MG/ML VIAL SLOW IVP PRN (09:42)
[2018-03-26] MEDS ORDERED: Enoxaparin Sodium 40 MG/0.4 ML SYRINGE ONE (09:57)
[2018-03-26] MEDS ORDERED: Fentanyl 100 MCG/2 ML VIAL ONE (09:57)
[2018-03-26] MEDS ORDERED: PHENYLEPHRINE-NS 100 MCG/ML 10 ML SYRINGE ONE (10:25)
[2018-03-26] MEDS ORDERED: Lidocaine 1% PF 5 ML VIAL ONE (10:25)
[2018-03-26] MEDS ORDERED: ePHEDrine/0.9% NaCl/PF SYRINGE 50 mg/10 ml ONE (10:25)
[2018-03-26] MEDS ORDERED: PROPOFOL 200 MG/20 ML VIAL ONE (10:25)
[2018-03-26] MEDS ORDERED: Ondansetron HCl/PF 4 MG/2 ML Vial ONE (10:25)
[2018-03-26] MEDS: Carvedilol 25 MG TAB PO SCH ×2 (10:28→16:30)
--- NOTE | 2018-03-26 12:02 | RAD ---
THREE VIEWS LEFT HIP: HISTORY: Open reduction internal fixation. FINDINGS: Three intraoperative images obtained and demonstrate a lag compression screw across the proximal left femoral fracture. Proximal distal fracture fragments are in good anatomic alignment. IMPRESSION: Open reduction internal fixation of a proximal left femoral intratrochanteric fracture. POS: TABITHA
[2018-03-26] MEDS: traMADol HCl 50 MG TAB PO PRN (12:39)
--- NOTE | 2018-03-26 13:06 | OP ---
DATE OPERATION: 03/26/2018 OPERATION: Left intertrochanteric femur fracture, dynamic hip screw fixation. PREOPERATIVE DIAGNOSIS: Left intertrochanteric femur fracture. POSTOPERATIVE DIAGNOSIS: Left intertrochanteric femur fracture. COMPLICATIONS: None. ESTIMATED BLOOD LOSS: 100 mL SURGEON: Benji Sanchez M.D. IMPLANTS: Synthes dynamic hip screw with 3 hole plate. ANESTHESIA: General. INDICATIONS: Ms. Lynch is an 87-year-old female who has fallen. She has sustained a left intertroc hanteric femur fracture. She was found at her house and taken to the Emergency Department. She has been admitted and has had preoperative medical optimization. She has been indicated for a left inter trochanteric femur fracture stabilization with fixation. Goal of surgery is early mobilization and t o prevent complications of prolonged bed rest. She is aware of risks and benefits and wants to proce ed. DESCRIPTION OF PROCEDURE: Ms. Lynch was identified in the preoperative holding area. Her correct e xtremity was marked. She was carried to the operating room. She was positioned supine. General ane sthesia was induced. A multidisciplinary timeout was performed. The left lower extremity was preppe d and draped in sterile fashion. We began the procedure with intraoperative reduction of the fracture using the traction table. We us ed intraoperative x-ray. Once we had an anatomic reduction, we prepped the leg. At this point, we m jordan a small incision over the lateral thigh. We dissected down to the bony level. We then inserted our guide wire using the 135 mm guide along the lateral cortex of the femur into centered position of the femoral head. The wire was measured. We then overdrilled the wire with our triple reamer. At this point, we placed our dynamic hip screw and side plate. Three screws were placed through the debby e plate fixing the plate to the bone. We took x-ray images confirming plate position and hardware pl acement. There were no complications. At this point, we thoroughly irrigated with copious lavage. We then closed with 0 Vicryl suture, 2-0 Vicryl suture and sheldon for the skin.
[2018-03-26] MEDS: CEFAZOLIN/Water 2 GM/20 ML SYRINGE SLOW IVP SCH ×2 (16:31→23:32)
[2018-03-26] MEDS ORDERED: Non-Formulary Item 1 EACH (Losartan Potassium [Cozaar] 50 MG) PO SCH (21:00)
[2018-03-26] MEDS: Losartan 25 MG TAB PO SCH (21:40)
[2018-03-26] MEDS: Senokot S 8.6-50 MG TAB PO SCH (21:40)
[2018-03-27 05:22] LABS: Hemoglobin 9.2 g/dL (12.0-16.0); Mean Corpuscular Hemoglobin 34.7 pg (27.0-31.0); Mean Platelet Volume 7.5 fL (7.4-10.4); Platelet Count 152 thou/uL (130-400); Red Blood Cell (RBC) Count 2.65 mill/uL (4.20-5.40); White Blood Cell (WBC) Count 7.2 thou/uL (4.8-10.8)
[2018-03-27 05:31] LABS: Phosphorus 3.4 mg/dL (2.3-4.7)
[2018-03-27 05:37] LABS: Anion Gap 9 mmol/L (10-20); BUN (Urea Nitrogen) 10 mg/dL (9.8-20.1); Calc. Creatinine Clearance 55 mL/min (70-130); Calcium 7.6 mg/dL (7.8-10.44); Carbon Dioxide 25 mmol/L (23-31); Chloride 108 mmol/L (98-107); Estimated GFR-MDRD 72; Glucose 119 mg/dL (83-110); Potassium 4.6 mmol/L (3.5-5.1); Sodium 137 mmol/L (136-145)
[2018-03-27] MEDS: Multivitamin W/ Minerals 1 TAB PO SCH (08:40)
[2018-03-27] MEDS: Carvedilol 25 MG TAB PO SCH ×2 (08:40→18:26)
[2018-03-27] MEDS: Senokot S 8.6-50 MG TAB PO SCH ×2 (08:40→20:52)
[2018-03-27] MEDS: Ferrous Gluconate 324 MG TAB PO SCH ×2 (08:41→20:50)
[2018-03-27] MEDS: Famotidine 20 MG TAB PO SCH (08:41)
[2018-03-27] MEDS: traMADol HCl 50 MG TAB PO PRN ×3 (08:41→21:39)
[2018-03-27] MEDS: Enoxaparin Sodium 40 MG/0.4 ML SYRINGE SC SCH (08:45)
--- NOTE | 2018-03-27 13:14 | PRG-2 ---
DATE OF SERVICE: 03/27/2018 SUBJECTIVE: The patient is an 87-year-old female who is status post a ground level fall with left in tertrochanteric hip fracture. The patient underwent surgical repair with Dr. Sanchez on 03/26/2018 . The patient has been up trying to ambulate. She denies any further loss of consciousness or falls . She has no complaints of abdominal pain. Does complain of some left-sided hip pain. Otherwise, d enies any other complaints today. OBJECTIVE: VITAL SIGNS: Temperature 98.2, pulse 81, respiration 16, oxygen saturation 94% on room air, blood pr essure was 127/73. GENERAL: The patient is sitting comfortably in a chair with feet elevated. Appears in no acute dist ress. HEENT: Head atraumatic, normocephalic. NECK: Nontender to palpation. Trachea is midline. LUNGS: Clear to auscultation bilaterally. Good inspiratory and expiratory effort. CARDIOVASCULAR: Heart; regular rate and rhythm. ABDOMEN: Soft, flat, nontender, with active bowel sounds. EXTREMITIES: Neurovascularly intact x4. LABORATORY DATA: White blood cell count 7.2, hemoglobin 9.2, hematocrit 27.1, platelet count 152. S odium was 137, potassium 4.6, chloride 108, BUN was 10, creatinine 0.76, calcium 7.6. ASSESSMENT: 1. Status post ground level fall. 2. Left intertrochanteric hip fracture status post repair. 3. Acute traumatic pain. 4. History of hypertension, present on admission. 5. History of pacemaker placement. PLAN: Continue supportive care. The patient will be seen for rehab screening [facility] from the [facility]. The patient will continue to work with OT and PT to continue to regain her strength. Otherwise, other electrolytes and vital signs, we will make appropr iate treatment changes as needed. All questions were answered at the time of this dictation. This case was discussed with Dr. Muller, the trauma attending.
[2018-03-27] MEDS: Sodium Chloride 0.9% 1,000 ML IV SCH ×2 (18:25→22:54)
[2018-03-27] MEDS ORDERED: Furosemide 20 MG/2 ML VIAL SLOW IVP SCH (19:30)
[2018-03-27] MEDS ORDERED: Sodium Chloride 0.9% 1,000 ML IV SCH (19:30)
[2018-03-27] MEDS: Losartan 25 MG TAB PO SCH (22:53)
[2018-03-28 05:09] LABS: Hemoglobin 7.8 g/dL (12.0-16.0); Mean Corpuscular HGB CONC 34.1 g/dL (32.0-36.0); Mean Corpuscular Hemoglobin 34.8 pg (27.0-31.0); Mean Platelet Volume 7.5 fL (7.4-10.4); Platelet Count 140 thou/uL (130-400); RBC Distribution Width 12.2 % (11.5-14.5); Red Blood Cell (RBC) Count 2.23 mill/uL (4.20-5.40); White Blood Cell (WBC) Count 8.9 thou/uL (4.8-10.8)
[2018-03-28 05:44] LABS: Anion Gap 8 mmol/L (10-20); BUN (Urea Nitrogen) 13 mg/dL (9.8-20.1); Calc. Creatinine Clearance 52 mL/min (70-130); Calcium 7.6 mg/dL (7.8-10.44); Carbon Dioxide 25 mmol/L (23-31); Chloride 105 mmol/L (98-107); Estimated GFR-MDRD 68; Glucose 98 mg/dL (83-110); Magnesium 1.9 mg/dL (1.6-2.6); Phosphorus 2.7 mg/dL (2.3-4.7); Potassium 3.7 mmol/L (3.5-5.1); Sodium 134 mmol/L (136-145)
[2018-03-28] MEDS: Enoxaparin Sodium 40 MG/0.4 ML SYRINGE SC SCH (09:02)
[2018-03-28] MEDS: Ferrous Gluconate 324 MG TAB PO SCH ×2 (09:02→22:03)
[2018-03-28] MEDS: Carvedilol 25 MG TAB PO SCH ×3 (09:02→17:21)
[2018-03-28] MEDS: Senokot S 8.6-50 MG TAB PO SCH ×2 (09:03→22:04)
[2018-03-28] MEDS: Multivitamin W/ Minerals 1 TAB PO SCH (09:03)
[2018-03-28] MEDS: Famotidine 20 MG TAB PO SCH (09:03)
[2018-03-28] MEDS: traMADol HCl 50 MG TAB PO PRN (10:50)
--- NOTE | 2018-03-28 11:00 | PRG-2 ---
DATE OF SERVICE: 03/28/2018 SUBJECTIVE: The patient is an 87-year-old female who is status post ground level fall with left inte rtrochanteric hip fracture. The patient underwent surgical repair with Dr. Sanchez on 03/26/2018. The patient has been up trying to ambulate. She denies any further loss of consciousness or falls. She has no other complaints of abdominal pain. She does still complain of some left-sided hip pain. No other complaints today. OBJECTIVE: VITAL SIGNS: BP 93/55, temperature was 98.2, pulse of 69, respiration is 14, oxygen saturation is 94 % on room air. GENERAL: The patient is sitting comfortably in a bed, appears in no acute distress. HEENT: Head is atraumatic, normocephalic. NECK: Nontender to palpation. Trachea is midline. LUNGS: Clear to auscultation bilaterally. Good inspiratory and expiratory effort. CARDIOVASCULAR: Regular rate and rhythm. ABDOMEN: Soft, flat, nontender with active bowel sounds. EXTREMITIES: Neurovascularly intact x4. LABORATORY DATA: Hemoglobin 7.8, hematocrit 22.7, platelets 140. White blood cell count 8.9, sodium 134, creatinine 0.8, BUN 13. Hemoglobin on day of admission was 12.7 and trended down to 7.8. ASSESSMENT: 1. Status post ground level fall. 2. Left intertrochanteric hip fracture status post repair, postop day 2. 3. Acute traumatic pain. 4. Acute blood loss anemia. 5. History of hypertension, present on admission. 6. History of pacemaker placement. PLAN: We will continue supportive care. One unit of packed red blood cells has been ordered as the p atient has now hemodynamically become symptomatic from the acute loss of hemoglobin. Patient is cont inuing to work with OT and PT, continuing to regain her strength and the patient is awaiting rehab sc reening for further placement. All other questions were answered at this time of dictation. This case was discussed with Dr. Boothe, the trauma attending and is in agreement.
[2018-03-28] MEDS: Losartan 25 MG TAB PO SCH (22:04)
[2018-03-29 04:25] LABS: Hemoglobin 8.8 g/dL (12.0-16.0); Mean Corpuscular HGB CONC 35.7 g/dL (32.0-36.0); Mean Platelet Volume 7.8 fL (7.4-10.4); Platelet Count 158 thou/uL (130-400); RBC Distribution Width 13.3 % (11.5-14.5); White Blood Cell (WBC) Count 9.1 thou/uL (4.8-10.8)
[2018-03-29 04:41] LABS: Anion Gap 10 mmol/L (10-20); BUN (Urea Nitrogen) 12 mg/dL (9.8-20.1); Calc. Creatinine Clearance 58 mL/min (70-130); Carbon Dioxide 26 mmol/L (23-31); Chloride 102 mmol/L (98-107); Estimated GFR-MDRD 76; Glucose 96 mg/dL (83-110); Sodium 134 mmol/L (136-145)
[2018-03-29] MEDS: Carvedilol 25 MG TAB PO SCH (09:08)
[2018-03-29] MEDS: Famotidine 20 MG TAB PO SCH (09:08)
[2018-03-29] MEDS: Ferrous Gluconate 324 MG TAB PO SCH (09:08)
[2018-03-29] MEDS: Multivitamin W/ Minerals 1 TAB PO SCH (09:08)
[2018-03-29] MEDS: Senokot S 8.6-50 MG TAB PO SCH (09:08)
[2018-03-29] MEDS: traMADol HCl 50 MG TAB PO PRN (09:09)
[2018-03-29] MEDS: Enoxaparin Sodium 40 MG/0.4 ML SYRINGE SC SCH (09:09)
[2018-03-29 12:43] VITALS: BP 135/59; TEMP 97.6
--- NOTE | 2018-03-29 13:27 | DIS-2 ---
DATE OF ADMISSION: 03/25/2018 DATE OF DISCHARGE: 03/29/2018 RESIDENT: Dr. Dolan ADMITTING ATTENDING: Dr. Noe Boothe DrFaith DISCHARGE ATTENDING: Dr. Boothe CONSULTANTS: Cardiology, Dr. Carodzo; Orthopedics, Dr. Sanchez, case management, OT evaluation and treatment, PT evaluation and treatment and rehab screen. PROCEDURES: 1. On 03/25/2018 the patient underwent a hip x-ray that showed an intertrochanteric left hip fracture. 2. On 03/25/2018, the patient underwent a chest x-ray that showed atherosclerosis, no active cardiopulmonary abnormalities otherwise demonstrated. 3. On 03/26/2018 the patient underwent a left intertrochanteric femur fracture dynamic hip screw fixation. 4. Next on 03/26/2018 the patient underwent a hip x-ray that showed open reduction internal fixation of a proximal left femoral intertrochanteric fracture. DIAGNOSES: 1. Status post ground level fall 2. Left intertrochanteric hip fracture s/p repair 3. Acute blood loss anemia 4. History of HTN 5. History of Pacemaker placement DISCHARGE MEDICATIONS: 1. Losartan potassium 50 mg p.o. q.p.m. 2. Carvedilol 25 mg p.o. b.i.d. 3. Dulcolax 10 mg p.r.n. 4. Lovenox 40 mg subcu at 0900. 5. Famotidine 20 mg p.o. daily. 6. Fergon 324 mg p.o. b.i.d. 7. Multivitamin 1 tab p.o. daily. 8. Senokot 2 tabs p.o. b.i.d. 9. Tramadol 100 mg p.o. q.6h. p.r.n. DISCONTINUED MEDICATIONS: None. HISTORY OF PRESENT ILLNESS/HOSPITAL COURSE: The patient is an 87-year-old female who was in her kitchen when she had a fall. She was walking in the kitchen when she fell, but was not sure how the fall happened. She denies loss of consciousness. She complained of pain in the left hip. She was transferred to [facility] via [facility]. Ms. Lynch normally walks 3 miles per day without trouble. She does not use a walker or cane or any assistive devices. Pain is exacerbated by movement. The pain is relieved by the administration of narcotic IV analgesia. During this hospitalization, the patient had notable laboratory values of white blood cell of 12.7 on admission, trended down to 7.8 on 03/28/2018 and up trended to 8.8 on 03/29/2018 following a blood transfusion. The patient has had a calcium of 7.6 that has trended to 8.0 and a BNP of 341.8. The patient was afebrile during this entire hospitalization. She did have episodes of hypotension down to as low as 94/48 pre-blood transfusion, after blood transfusion she rebounded into the 140s/60s to 110s/60s. The patient was seen by Dr. Sanchez, who recommended a repair of the intertrochanteric hip fracture. The patient was then seen by rehabilitation and they recommended inpatient rehab facility for her to make sure that she is successful in healing and to be able to go home and be successful. Otherwise, the patient did complain of pain with ambulation. Otherwise, pain was well controlled at rest. The patient continued to make strides and continued to make improvement with physical therapy and we believe she will be very successful after a rehabilitation stay. Otherwise, the patient had no further complaints during this hospitalization and was discharged in appropriate condition. DISPOSITION: Stable. DISCHARGE INSTRUCTIONS: 1. Location: She will be [facility] a [facility] at [place]. 2. Diet will be regular diet with supplements of Ensure b.i.d. 3. Activity will be as tolerated with orthopedic limitations because of the recent left hip fracture. 4. Follow up will be with Dr. Anam Sanchez in [address] Ricardo, her primary care provider going forward. We wish her the best of luck. [facility]
== END 2018-03-29 13:17 | DRG 481 ==
LOC: ERS 13:44 → SURG A 15:48
PROVIDERS: ADMIT Surgery; ATTEND Surgery
PROC: 0QS704Z Reposition Left Upper Femur with Internal Fixation Device, Open Approach (ICD-10-PCS; principal; 2018-03-26)
PROC: 30233N1 Transfusion of Nonautologous Red Blood Cells into Peripheral Vein, Percutaneous Approach (ICD-10-PCS; 2018-03-28)
DX: S72.142A Displaced intertrochanteric fracture of left femur, initial encounter for closed fracture (principal); D62 Acute posthemorrhagic anemia; G89.11 Acute pain due to trauma; I10 Essential (primary) hypertension; E78.5 Hyperlipidemia, unspecified; I48.91 Unspecified atrial fibrillation; Z95.0 Presence of cardiac pacemaker; Z79.899 Other long term (current) drug therapy; W18.30XA Fall on same level, unspecified, initial encounter; Y92.010 Kitchen of single-family (private) house as the place of occurrence of the external cause
CPT/HCPCS: 36415; 36430; 71045; 76001; 80048; 82533; 82553; 83735; 83880; 84100; 84484; 85025; 85027; 85610; 85730; 86850; 86900; 86901; 93005; 96374; 96375; C1713; C1769; G0390; G8978-GP-CN; G8979-GP-CK; G8987-GO-CK; G8988-GO-CI; J0131; J1650; J1940; J2001; J2270; J2405; J2704; J3010; P9016; Q0162

== ENCOUNTER 2018-04-03 07:34 | Observation (INO) | payer MEDICARE, OTHER ==
[2018-04-03 08:23] LABS: #Eosinphils 0.3 thou/uL (0.0-0.7); #Lymphocytes 0.8 thou/uL (1.20-3.40); #Monocytes 0.9 thou/uL (0.11-0.59); #Neutrophils 5.9 thou/uL (1.40-6.50); %Basophils 0.3 % (0.0-1.0); %Eosinophils 3.2 % (0.0-10.0); %Lymphocytes 10.4 % (21.0-51.0); %Monocytes 11.7 % (0.0-10.0); %Neutrophils 74.4 % (42.0-75.0); Hemoglobin 8.8 g/dL (12.0-16.0); Mean Corpuscular HGB CONC 34.6 g/dL (32.0-36.0); Mean Corpuscular Hemoglobin 34.4 pg (27.0-31.0); Mean Corpuscular Volume 99.5 fl (81.0-99.0); Mean Platelet Volume 6.3 fL (7.4-10.4); Platelet Count 270 thou/uL (130-400); RBC Distribution Width 13.3 % (11.5-14.5); Red Blood Cell (RBC) Count 2.55 mill/uL (4.20-5.40)
--- NOTE | 2018-04-03 08:25 | RAD ---
PORTABLE CHEST: Date: 04/03/18 HISTORY: Chest pain and shortness of breath. COMPARISON: 03/25/18. FINDINGS: Heart size is within normal limits for portable technique. There are atherosclerotic changes of the a nova. Interstitial markings are increased, slightly more prominent than on the prior exam, although t he difference may just be technique related. Some minimal element of edema is difficult to definitely exclude. IMPRESSION: Slightly accentuated interstitial markings as compared to the prior exam, some of which is technique related, but could indicate some early edema change. Clinical correlation recommended. POS: [facility]
[2018-04-03 08:40] LABS: ALT (SGPT) 19 U/L (8-55); AST (SGOT) 34 U/L (5-34); Albumin 3.1 g/dL (3.4-4.8); Alkaline Phosphatase 89 U/L (40-150); Anion Gap 14 mmol/L (10-20); BUN (Urea Nitrogen) 14 mg/dL (9.8-20.1); Bilirubin, Total 1.1 mg/dL (0.2-1.2); CK (CPK) 229 U/L (29-168); Calc. Creatinine Clearance 0 mL/min (70-130); Calcium 8.3 mg/dL (7.8-10.44); Carbon Dioxide 23 mmol/L (23-31); Chloride 102 mmol/L (98-107); Estimated GFR-MDRD 69; Globulin 2.8 g/dL (2.4-3.5); Glucose 106 mg/dL (83-110); Protein, Total 5.9 g/dL (6.0-8.3); Sodium 135 mmol/L (136-145)
[2018-04-03 08:44] LABS: CKMB 1.7 ng/mL (0-6.6); Troponin I Less than 0.010 ng/mL (< 0.028)
--- NOTE | 2018-04-03 09:33 | CT ---
CT ANGIOGRAM THORAX WITH IV CONTRAST AND 3D RECONSTRUCTIONS: Date: 04/03/18 HISTORY: Substernal chest pain which started last night. Shortness of breath, worse with exertion. COMPARISON: None available. FINDINGS: No filling defects are seen in the pulmonary arteries to suggest a pulmonary embolus. Thoracic aorta is not opacified, but the thoracic aorta is normal in caliber. Aortic dissection could not be evaluated on this exam. Vascular calcifications are seen in the coronary arteries, as well as involving the thoracic aorta. There is a small left pleural effusion with dependent atelectasis seen bilaterally. No discrete pulmo nary nodule or mass is seen. A dual lead left subclavian cardiac pacemaking device is noted in place. There is a nonspecific, mildly enlarged pretracheal lymph node measuring 1.3 cm in short axis dimensi on. A tiny subcentimeter hypodense nodule is seen in the left lobe of the thyroid gland. Calcifications are seen in the right adrenal gland, which may be related to either prior adrenal hemo rrhage or prior granulomatous disease. Remainder of the visualized upper abdomen has a grossly normal nonenhanced CT appearance. Degenerative changes are seen in the thoracic spine. Prominent osteophytes seen involving the lower t horacic, as well as visualized upper lumbar spine. Large osteophytes projecting anterolaterally on th e right in the lower thoracic and upper lumbar spine. A few areas of mild nonspecific interstitial thickening are seen, predominantly in the upper lobes. IMPRESSION: 1. No CT evidence of a pulmonary embolus. 2. Atherosclerotic vascular calcifications. 3. Very small left pleural effusion. 4. Dependent atelectasis bilaterally. 5. Minimal nonspecific interstitial thickening, predominantly in the upper lobes. 6. Nonspecific mildly enlarged pretracheal lymph node. 7. Subcentimeter hypodense nodule left lobe of thyroid gland. POS: [facility]
--- NOTE | 2018-04-03 09:35 | ULT ---
LEFT LOWER EXTREMITY VENOUS DOPPLER ULTRASOUND EVALUATION: DATE: 04/03/18. HISTORY: Edema and pain. FINDINGS: Multiple longitudinal and transverse images of the left lower extremity venous system are obtained us ing a multihertz linear ray transducer. Real-time, color, and spectral waveform Doppler analysis dem onstrates no evidence of acute or old clot seen in the left common femoral, superficial femoral, femo ral profunda, popliteal, posttrifurcation veins, and left greater saphenous vein. IMPRESSION: No evidence of left lower extremity deep venous thrombosis. POS: [facility]
[2018-04-03] MEDS ORDERED: ISOVUE-370 76%-LOCM 1 ML ONE (09:39)
[2018-04-03 10:17] LABS: Bilirubin Negative (Negative); Blood, Urine Negative (Negative); Clarity CLEAR (Clear); Glucose, Urine (Dipstick) Negative (Negative); Leukocyte Trace (Negative); Nitrite Negative (Negative); Protein, Urine (Dipstick) Negative (Neg-Trace); Specific Gravity, Urine 1.011 (1.002-1.036); Urobilinogen 0.2 mg/dL (0.2-1.0); pH, Urine 6.5 (5.0-9.0)
[2018-04-03 10:19] LABS: Bacteria/HPF None Seen HPF (None Seen); Hyaline Casts/LPF 0-3 HYALINE CAST LPF (0-3 Hyaline); RBC/HPF 0-3 HPF (0-3); Squamous Epithelial 0-3 HPF (0-3); WBC/HPF 0-3 HPF (0-3)
[2018-04-03] MEDS ORDERED: Furosemide 40 MG/4 ML VIAL ONE (10:30)
[2018-04-03 11:38] LABS: Troponin I Less than 0.010 ng/mL (< 0.028)
[2018-04-03] MEDS ORDERED: Ondansetron HCl/PF 4 MG/2 ML Vial IVP PRN (12:25)
[2018-04-03] MEDS ORDERED: Ondansetron ODT 4 MG TAB SL PRN (12:25)
[2018-04-03 12:43] VITALS: BMI 28.8
[2018-04-03] MEDS ORDERED: Acetaminophen 325 MG TAB PO PRN (12:53)
[2018-04-03 14:46] LABS: Troponin I Less than 0.010 ng/mL (< 0.028)
[2018-04-03] MEDS ORDERED: Heparin 5,000 UNITS/ML VIAL SC SCH (15:00)
[2018-04-03] MEDS: traMADol HCl 50 MG TAB PO PRN (19:03)
[2018-04-03] MEDS: Furosemide 20 MG/2 ML VIAL SLOW IVP SCH (21:25)
[2018-04-03] MEDS: Carvedilol 25 MG TAB PO SCH (21:25)
--- NOTE | 2018-04-03 22:59 | HP ---
CHIEF COMPLAINT: Shortness of breath. HISTORY OF PRESENT ILLNESS: The patient is an 87-year-old female who just was discharged from the [facility] on 03/29 after undergoing an open reduction and internal fixation of the proximal left femoral intertrochanteric fracture. The patient stated that she has been feeling some shortness of breath f or the past couple of days. The patient denies any chest pain, fevers, or chills. Patient did menti on to me that she fell this morning while she was trying to move around in her room; however, she sta nisha that she did not mention it to anybody. Later on towards end of my conversation when I asked her about the fall, asked her to make sure if she passed out or was it a mechanical fall, she stated gavin t "oh, no, I cannot remember if I fell or not," so I am not sure if the patient fell. The patient st ates that she denies any palpitations, any nausea, vomiting. She just stated that she felt that she had to take a deep breath in yesterday and today. The patient underwent a CTA chest for ruling out a PE. A CTA of the chest was negative for PE. She did have a small left-sided pleural effusion. PAST MEDICAL HISTORY: 1. She has a history of atrial fibrillation, status post ablation. She currently has a pacemaker an d is paced. 2. Hypertension. 3. Hyperlipidemia. 4. Diverticulosis. 5. Degenerative joint disease. PAST SURGICAL HISTORY: She has had a right knee surgery, colon surgery in 2004, pacemaker placement in 2016 and she has had an open reduction and internal fixation of the left hip recently in 03/2018. SOCIAL HISTORY: She lives alone. Drinks a glass or two of wine nightly. Denies any tobacco abuse. REVIEW OF SYSTEMS: All negative except for the ones mentioned above in the HPI. ALLERGIES: She has got no known drug allergies. MEDICATIONS: As the following: She takes tramadol 100 mg p.o. q.6 hours p.r.n., multivitamin 1 p.o. daily, Cozaar 50 mg q.p.m., Pepcid 20 mg daily, carvedilol 25 mg b.i.d., Colace and docusate 2 tabs b.i.d., ferrous gluconate 325 b.i.d., Lovenox 40 subcu daily, and Dulcolax 10 mg b.i.d. p.r.n. FAMILY HISTORY: She denies any family history of heart disease or any sort of cancer. PHYSICAL EXAMINATION: VITAL SIGNS: She is afebrile at 98.4, 74, 16, 92% on room air, 161/77. GENERAL: She is awake, alert, and oriented x3, does not appear in distress. CARDIOVASCULAR: S1, S2 present. No murmurs, rubs, or gallops. LUNGS: She has got diminished breath sounds to bilateral bases. No rhonchi or wheezes noted. ABDOMEN: Soft, nontender. Bowel sounds are present x2. She does have some pain around her epigastr ic area on some deep palpation. EXTREMITIES: Her left lower extremity has more edema than the right. Pedal pulses are present bilat erally. Her left hip dressing appears to be intact. NEUROLOGIC: No focal deficits noted. LABORATORY AND DIAGNOSTIC DATA: As the following: White count of 8.0, hemoglobin of 8.8, hematocrit of 25.4, platelets of 270,000. Chemistry: Sodium of 135, potassium of 4.0, BUN of 14, creatinine 0 .79, and her troponin is negative x3. CK is 229. BNP was 838.1. She did have a venous lower extrem ity Dopplers, which were negative for any DVT. She also had a CTA chest, which indicated no pulmonar y embolism, just subcentimeter hypodensity nodule to her left lobe of her thyroid gland. ASSESSMENT AND PLAN: The patient is a very pleasant 87-year-old female who presents to the hospital with shortness of breath. 1. Shortness of breath could be a combination from her anemia and mild acute on chronic diastolic he art failure. Patient on her previous echo in 2017, did have [id number] tricuspid regurgitati on. This could be secondary also to mild fluid overload in her lung and a little bit of a pleural ef fusion. We will start the patient on gentle diuretics of Lasix 20 mg b.i.d. We will repeat an echoca rdiogram just to make sure that her EF is stable. The patient does not appear to be significantly hy pertensive on admission. 2. Hypertension. We will continue the patient's home medications. 3. Recent left hip open reduction and internal fixation. We will continue the Lovenox daily. Also, we will get physical therapy. I do not think surgery needs to be consulted, however, maybe we can m laure them aware that the patient is in the hospital. 4. Atrial fibrillation. The patient is currently paced. She does not take any anticoagulation. Th e patient sees Dr. Stevens as an outpatient. We will continue to monitor.
[2018-04-04 05:36] LABS: #Eosinphils 0.2 thou/uL (0.0-0.7); #Lymphocytes 0.8 thou/uL (1.20-3.40); #Monocytes 1.1 thou/uL (0.11-0.59); #Neutrophils 6.8 thou/uL (1.40-6.50); %Basophils 0.2 % (0.0-1.0); %Eosinophils 2.1 % (0.0-10.0); %Lymphocytes 8.5 % (21.0-51.0); %Monocytes 11.8 % (0.0-10.0); %Neutrophils 77.3 % (42.0-75.0); Hemoglobin 9.1 g/dL (12.0-16.0); Mean Corpuscular HGB CONC 34.5 g/dL (32.0-36.0); Mean Corpuscular Hemoglobin 34.1 pg (27.0-31.0); Mean Platelet Volume 6.2 fL (7.4-10.4); Platelet Count 320 thou/uL (130-400); RBC Distribution Width 13.1 % (11.5-14.5); Red Blood Cell (RBC) Count 2.65 mill/uL (4.20-5.40); White Blood Cell (WBC) Count 8.9 thou/uL (4.8-10.8)
[2018-04-04 05:51] LABS: Anion Gap 13 mmol/L (10-20); BUN (Urea Nitrogen) 13 mg/dL (9.8-20.1); Calc. Creatinine Clearance 60 mL/min (70-130); Calcium 8.3 mg/dL (7.8-10.44); Carbon Dioxide 30 mmol/L (23-31); Chloride 98 mmol/L (98-107); Estimated GFR-MDRD 75; Glucose 81 mg/dL (83-110); Potassium 3.5 mmol/L (3.5-5.1); Sodium 137 mmol/L (136-145)
[2018-04-04] MEDS ORDERED: Potassium Chloride 20 MEQ TAB PO SCH (08:15)
[2018-04-04] MEDS: Famotidine 20 MG TAB PO SCH (09:26)
[2018-04-04] MEDS: Furosemide 20 MG/2 ML VIAL SLOW IVP SCH ×2 (09:27→20:58)
[2018-04-04] MEDS: Ferrous Gluconate 324 MG TAB PO SCH ×2 (09:27→20:58)
[2018-04-04] MEDS: Carvedilol 25 MG TAB PO SCH ×2 (09:27→20:57)
[2018-04-04] MEDS: traMADol HCl 50 MG TAB PO PRN ×3 (09:27→21:25)
[2018-04-04] MEDS: Senokot S 8.6-50 MG TAB PO SCH ×2 (09:27→20:57)
[2018-04-04] MEDS: Enoxaparin Sodium 40 MG/0.4 ML SYRINGE SC SCH (09:28)
[2018-04-04] MEDS: Multivitamin W/ Minerals 1 TAB PO SCH (09:28)
--- NOTE | 2018-04-04 11:30 | PDOC.PN ---
- Subjective Encounter Start Date: 04/04/18 Encounter Start Time: 11:32 Patient seen and examined. Admitted for CHF exaceration after p/w SOB. Doing well today and diuresing well. No acute events overnight. She has no complaints. - Objective Resuscitation Status: Resuscitation Status DNR:Do Not Resuscitate MAR Reviewed: Yes Vital Signs & Weight: Vital Signs (12 hours) Temp Pulse Resp BP Pulse Ox 04/04/18 04:00 98.9 F 70 17 128/66 94 L Weight Weight 157 lb 12.8 oz I&O: 04/03/18 04/04/18 04/05/18 06:59 06:59 06:59 Intake Total 240 Output Total 1700 Balance -1460 Result Diagrams: 04/04/18 04:32 04/04/18 04:32 Phys Exam - Physical Examination Constitutional: NAD HEENT: moist MMs, sclera anicteric, oral pharynx no lesions Neck: supple, full ROM Respiratory: no wheezing, no rales, no rhonchi, clear to auscultation bilateral Cardiovascular: RRR, no significant murmur, no rub Gastrointestinal: soft, non-tender, no distention, positive bowel sounds Musculoskeletal: pulses present, edema present Neurological: non-focal, moves all 4 limbs Psychiatric: normal affect, A&O x 3 Skin: no rash, cap refill <2 seconds Dx/Plan (1) Acute on chronic congestive heart failure with left ventricular diastolic dysfunction Code(s): I50.33 - ACUTE ON CHRONIC DIASTOLIC (CONGESTIVE) HEART FAILURE Status : Acute (2) Afib Code(s): I48.91 - UNSPECIFIED ATRIAL FIBRILLATION Status: Chronic Qualifiers: Atrial fibrillation type: paroxysmal Qualified Code(s): I48.0 - Paroxysmal atrial fibrillation (3) Dyslipidemia Code(s): E78.5 - HYPERLIPIDEMIA, UNSPECIFIED Status: Chronic (4) Hypertension Code(s): I10 - ESSENTIAL (PRIMARY) HYPERTENSION Status: Chronic Qualifiers: Hypertension type: essential hypertension Qualified Code(s): I10 - Essential (primary) hypertension (5) Fracture of left hip Code(s): S72.002A - FRACTURE OF UNSP PART OF NECK OF LEFT FEMUR, INIT Status: Acute - Plan cont current plan of care, PT/OT, out of bed/ambulate, DVT proph w/lovenox Continue diuretics, PT/OT. Likely discharge tomorrow if she continues to improve. f/u ECHO report. Review of Systems - Medications/Allergies Allergies/Adverse Reactions: Allergies Allergy/AdvReac Type Severity Reaction Status Date / Time No Known Drug Allergies Allergy Verified 08/03/17 00:12 Medications: Current Medications Acetaminophen (Tylenol) 650 mg PO Q4H PRN PRN Reason: Headache/Fever or Pain Carvedilol (Coreg) 25 mg PO BID [facility] Last Admin: 04/04/18 09:27 Dose: 25 mg Enoxaparin Sodium (Lovenox) 40 mg SC 0900 [facility] Last Admin: 04/04/18 09:28 Dose: 40 mg Famotidine (Pepcid) 20 mg PO DAILY [facility] Last Admin: 04/04/18 09:26 Dose: 20 mg Ferrous Gluconate (Fergon) 324 mg PO BID [facility] Last Admin: 04/04/18 09:27 Dose: 324 mg Furosemide (Lasix) 20 mg SLOW IVP BID [facility] Last Admin: 04/04/18 09:27 Dose: 20 mg Iron/Minerals/Multivitamins (Theragran M) 1 tab PO DAILY [facility] Last Admin: 04/04/18 09:28 Dose: 1 tab Losartan Potassium (Cozaar) 50 mg PO QPM [facility] Potassium Chloride (K-Dur) 20 meq PO QAM-WM [facility] Senna/Docusate Sodium (Senokot S) 2 tab PO BID [facility] Last Admin: 04/04/18 09:27 Dose: Not Given Sodium Chloride (Flush - Normal Saline) 10 ml IVF Q12HR [facility] Last Admin: 04/04/18 09:29 Dose: 10 ml Sodium Chloride (Flush - Normal Saline) 10 ml IVF PRN PRN PRN Reason: Saline Flush Tramadol HCl (Ultram) 100 mg PO Q6H PRN PRN Reason: Breakthrough Pain Last Admin: 04/04/18 09:27 Dose: 100 mg
[2018-04-04] MEDS ORDERED: Losartan 25 MG TAB PO SCH (21:00)
[2018-04-05 05:23] LABS: Hemoglobin 9.2 g/dL (12.0-16.0); Mean Corpuscular Hemoglobin 33.9 pg (27.0-31.0); Mean Corpuscular Volume 99.8 fL (78.0-98.0); Platelet Count 311 thou/uL (130-400); RBC Distribution Width 13.2 % (11.5-14.5); Red Blood Cell (RBC) Count 2.71 mill/uL (4.20-5.40); White Blood Cell (WBC) Count 7.4 thou/uL (4.8-10.8)
[2018-04-05 05:41] LABS: Anion Gap 12 mmol/L (10-20); BUN (Urea Nitrogen) 14 mg/dL (9.8-20.1); Calc. Creatinine Clearance 59 mL/min (70-130); Calcium 8.4 mg/dL (7.8-10.44); Carbon Dioxide 29 mmol/L (23-31); Chloride 97 mmol/L (98-107); Estimated GFR-MDRD 73; Glucose 79 mg/dL (83-110); Potassium 3.8 mmol/L (3.5-5.1); Sodium 134 mmol/L (136-145)
[2018-04-05] MEDS ORDERED: Potassium Chloride 20 MEQ TAB PO SCH (08:00)
[2018-04-05] MEDS: Famotidine 20 MG TAB PO SCH (08:29)
[2018-04-05] MEDS: Carvedilol 25 MG TAB PO SCH (08:29)
[2018-04-05] MEDS: Multivitamin W/ Minerals 1 TAB PO SCH (08:29)
[2018-04-05] MEDS: Ferrous Gluconate 324 MG TAB PO SCH (08:30)
[2018-04-05] MEDS: Senokot S 8.6-50 MG TAB PO SCH (08:30)
[2018-04-05] MEDS: Enoxaparin Sodium 40 MG/0.4 ML SYRINGE SC SCH (08:31)
[2018-04-05] MEDS: Furosemide 20 MG/2 ML VIAL SLOW IVP SCH (08:34)
[2018-04-05] MEDS: traMADol HCl 50 MG TAB PO PRN (09:35)
--- NOTE | 2018-04-05 11:23 | DIS ---
HOSPITAL COURSE: An 87-year-old female who was recently discharged from the hospital on 03/29/2018 after undergoing open reduction and internal fixation of the proximal left femoral intertrochanteric fracture. She reported that she had been feeling short of breath for about 2 days. She denied chest pain, fever or chills. She denied palpitation, nausea, vomiting, and reported that she felt that she has been taking deeper breaths for the past couple of days. At the emergency room, she had a CTA chest which ruled out PE, but she was reported to have had a small left pleural effusion. Her medical history of atrial fibrillation, status post ablation. She was initially on Eliquis, but has been discontinued recently by Dr. Stevens due to recent bleeding. Other medical history includes hypertension, hyperlipidemia, diverticulosis, DJD. She was admitted for shortness of breath thought to be due to a combination of her anemia and a mild acute on chronic diastolic heart failure. Her previous echocardiogram was done in 2017, which showed moderate to severe tricuspid regurgitation. While on admission, she was started on IV furosemide and had an echocardiogram done which revealed an EF of 60-65% with impaired relaxation compatible with diastolic dysfunction. She had mild to moderate tricuspid regurgitation as well. She improved with therapy and she was oxygenating well on room air and was discharged back to [place] to continue her rehabilitation. DISCHARGE MEDICATIONS: Carvedilol 25 mg b.i.d., Lovenox 30 mg daily, famotidine 20 mg daily, Fergon 324 mg b.i.d., furosemide 20 mg daily for 7 days , losartan 50 mg q.p.m., multivitamin with minerals 1 tablet daily, Senna/ docusate 2 tablets p.o. b.i.d., tramadol 100 mg q.6 hours p.r.n. for pain. PHYSICAL EXAMINATION: She was examined on the day of discharge. VITAL SIGNS: Blood pressure 162/70, oxygen saturation 94% on room air, respiratory rate 16, pulse rate 70, temperature 99.3 degrees Fahrenheit. GENERAL: Not in acute distress. She is sitting comfortably in bed. HEENT: Moist mucous membranes, anicteric, not pale. HEAD: Normocephalic, atraumatic. NECK: Supple, full range of movements. No JVD. RESPIRATORY: Vesicular breath sounds bilaterally. No wheezes, rales or rhonchi. CARDIOVASCULAR: S1 and S2 only. Regular rate and rhythm. No obvious murmurs, rubs or gallops. ABDOMEN: Soft, nontender, nondistended. Bowel sounds positive. MUSCULOSKELETAL: No edema. Surgical scar on left knee clean and dry. NEUROLOGIC: Alert and well oriented to time, place and person. No focal deficit. PSYCHIATRIC: Normal mood and affect. SKIN: Warm, dry, well-perfused. No rashes or lesions. LABORATORY DATA: WBC 7.4, hemoglobin 9.2, platelet count 311. Sodium 134, potassium 3.8, carbon dioxide 29, chloride 97, BUN 14, creatinine 0.7, glucose 79, calcium 8.4. IMAGING: CTA chest as stated in HPI. Vascular ultrasound negative for DVTs in the lower extremities. Chest x-ray showed slight accentuated interstitial markings , which could indicate some edema change. CONSULTATIONS: None. CONDITION AT DISCHARGE: Stable and improved. PROCEDURES: None. DIET: Heart healthy. CARE GOALS: To follow up with her primary care physician within 1 week of discharge. ACTIVITY: To resume as tolerated and as directed by PT/OT. Discharge time 65 minutes including chart review and documentation. MTDD
[2018-04-05 12:53] VITALS: TEMP 99.3
[2018-04-05 13:00] VITALS: BP 175/76
== END 2018-04-05 13:24 | disposition home or self-care (01) ==
LOC: ERS 07:34 → 2NO 12:27 → INTOOBSV 12:27
PROVIDERS: ADMIT Internal Medicine; ATTEND Internal Medicine
DX: I11.0 Hypertensive heart disease with heart failure (principal); I50.33 Acute on chronic diastolic (congestive) heart failure; I48.0 Paroxysmal atrial fibrillation; E78.5 Hyperlipidemia, unspecified; M19.90 Unspecified osteoarthritis, unspecified site; S72.002A Fracture of unspecified part of neck of left femur, initial encounter for closed fracture; Z79.899 Other long term (current) drug therapy
CPT/HCPCS: 51701; 71045; 71275; 80048 ×2; 80053; 82550; 82553; 83880; 84484 ×2; 85025 ×2; 85027; 93005; 93306; 93971; 94760; 96372 ×2; 96374; 96376 ×3; 97116; 97139 ×2; 99285; G0378; G8978; G8979; G8987; G8988; G8989; 36415; 81003; 81015; A4216; J1650; J1940

== ENCOUNTER 2018-04-07 09:03 | Inpatient (IN) | payer MEDICARE, OTHER ==
[2018-04-07] MEDS ORDERED: Diltiazem 125 MG/25 ML ONE (09:28)
[2018-04-07 09:29] LABS: #Eosinphils 0.1 thou/uL (0.0-0.7); #Lymphocytes 0.9 thou/uL (1.20-3.40); #Neutrophils 6.5 thou/uL (1.40-6.50); %Basophils 0.3 % (0.0-1.0); %Eosinophils 1.5 % (0.0-10.0); %Lymphocytes 10.9 % (21.0-51.0); %Monocytes 11.9 % (0.0-10.0); %Neutrophils 75.3 % (42.0-75.0); Hemoglobin 11.2 g/dL (12.0-16.0); Mean Corpuscular HGB CONC 33.3 g/dL (32.0-36.0); Mean Corpuscular Hemoglobin 33.4 pg (27.0-31.0); Mean Platelet Volume 5.9 fL (7.4-10.4); Platelet Count 408 thou/uL (130-400); RBC Distribution Width 13.1 % (11.5-14.5); Red Blood Cell (RBC) Count 3.36 mill/uL (4.20-5.40); White Blood Cell (WBC) Count 8.7 thou/uL (4.8-10.8)
[2018-04-07 09:50] LABS: INR-International Normal Ratio 1.2; Prothrombin Time 15.8 SEC (12.0-14.7)
[2018-04-07 09:51] LABS: ALT (SGPT) 19 U/L (8-55); AST (SGOT) 31 U/L (5-34); Albumin 3.6 g/dL (3.4-4.8); Alkaline Phosphatase 137 U/L (40-150); Anion Gap 15 mmol/L (10-20); BUN (Urea Nitrogen) 13 mg/dL (9.8-20.1); Bilirubin, Total 1.3 mg/dL (0.2-1.2); Calc. Creatinine Clearance 0 mL/min (70-130); Carbon Dioxide 27 mmol/L (23-31); Chloride 100 mmol/L (98-107); Estimated GFR-MDRD 58; Globulin 3.3 g/dL (2.4-3.5); Glucose 115 mg/dL (83-110); Potassium 3.9 mmol/L (3.5-5.1); Protein, Total 6.9 g/dL (6.0-8.3); Sodium 138 mmol/L (136-145)
--- NOTE | 2018-04-07 09:51 | RAD ---
SINGLE VIEW OF THE CHEST: Comparison: 04-03-18 History: Shortness of breath all night. FINDINGS: Single view of the chest shows a normal sized cardiomediastinal silhouette with atherosclerotic calci fications in the aorta. The pacemaker is unchanged in position. There is no evidence of consolidation , mass, or pleural effusion. IMPRESSION: No evidence of acute cardiopulmonary disease. POS: [facility]
[2018-04-07 09:55] LABS: CKMB 1.6 ng/mL (0-6.6); Troponin I 0.021 ng/mL (< 0.028)
[2018-04-07 10:22] LABS: D-Dimer Test 8.88 *mcg/mL (0.27-0.43)
[2018-04-07] MEDS ORDERED: ISOVUE-370 76%-LOCM 1 ML ONE (11:59)
--- NOTE | 2018-04-07 12:16 | CT ---
CT PULMONARY ANGIOGRAM WITH IV CONTRAST AND 3D POSTPROCESSING: Date: 04/07/18 HISTORY: Shortness of breath. FINDINGS: Comparison made with exam from 4 days ago (04/03/18). There is good contrast opacification of the pulmonary arterial vasculature without filling defects to suggest pulmonary embolism. Thoracic aorta is not opacified. 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 No pericardial or right pleural effusion seen. Tiny left pleural effusion is again noted. Mildly enlarged mediastinal lymph nodes are stable. There are mild dependent changes in the lung bases. There are degenerative changes in the spine. Upper abdominal tomograms demonstrate calcifications in the right adrenal gland. IMPRESSION: No CT evidence of pulmonary embolism. POS: [facility]
[2018-04-07] MEDS ORDERED: Furosemide 40 MG/4 ML VIAL ONE (13:19)
[2018-04-07 13:52] LABS: Troponin I 0.013 ng/mL (< 0.028)
--- NOTE | 2018-04-07 14:12 | HP ---
CHIEF COMPLAINT: Shortness of breath. HISTORY OF PRESENT ILLNESS: The patient is an 87-year-old female who was just discharged f rom this hospital 2 days ago with a diagnosis of a diastolic heart failure and anemia and she went to the rehab and was doing quite well until last night when she started having some shortness of breath . She did not feel her heart palpitating, but it was difficult for her to catch her breath. She did not notice any cough. There was not any fever or chills. There was no rhinorrhea. No nausea or vo miting, no chest pain. She was brought to the emergency room this morning and was found to be in atr ial fibrillation with RVR. She was discharged on carvedilol 25 mg twice a day, famotidine 20 mg once a day, Fergon 324 mg twice a day, furosemide 20 mg once per day for 7 days, losartan 50 mg q.p.m., multivitamin with minerals 1 a day, senna/docusate 2 tablets twice a day and tramadol 100 mg q.6. p.r.n. for the pain. She had echocardiogram done during this previous admission which showed moderate to severe tricuspid regurgitation. LVEF was 60-65% with impaired relaxation compatible with diastolic dysfunction. She also had mild to moderate tricuspid regurgitation. PAST MEDICAL HISTORY: 1. Atrial fibrillation, status post ablation. 2. Pacemaker. 3. Hypertension. 4. Hyperlipidemia. 5. Diverticulosis. 6. Degenerative joint disease. 7. Status post recent left femoral intertrochanteric fracture and fixation. 8. Congestive heart failure as described above, diastolic during the previous recent hospitalization . PAST SURGICAL HISTORY: 1. Right knee surgery. 2. Colon surgery in 2004. 3. Pacemaker placement in 2016. 4. Recent open reduction and internal fixation of left hip in 03/2018. SOCIAL HISTORY: She lives alone. Denies any tobacco use. She drinks a glass or two of wine nightly . FAMILY HISTORY: Positive for cardiovascular disease. ALLERGIES: None. MEDICATIONS: Carvedilol 25 mg twice a day, Lovenox 30 mg daily, famotidine 20 mg daily, Fergon 324 m g twice a day, furosemide 20 mg daily for 7 days, losartan 50 mg q.p.m., multivitamin with minerals 1 tablet daily, senna/docusate 2 tablets twice a day, tramadol 100 mg q.6. p.r.n. as needed. REVIEW OF SYSTEMS: CONSTITUTIONAL: She complains of some lower extremity swelling plus dyspnea from last night. Otherw ise, she is doing well and all her symptoms were reviewed and they are negative for any findings. PHYSICAL EXAMINATION: VITAL SIGNS: Her blood pressure is 130/96, pulse is 120, pulse oximetry is 91%, respiratory rate is 14. GENERAL: She is not in any acute obvious distress. She is lying in bed horizontally. HEENT: Head is atraumatic, normocephalic. Eyes: PERRLA. Sclerae is nonicteric. Oral mucosa is cal st. NECK: Supple. JVD 1+ similar bilaterally. Thyroid is not palpable. LUNGS: Clear. HEART: S1, S2, irregularly irregular. No S3, no S4, no murmur. ABDOMEN: Soft, nontender, nondistended. Bowel sounds are present, no organomegaly. EXTREMITIES: 1+ peripheral edema on the right leg and 1-2+ on the left, some significant bruises bel ow the knee. NEUROLOGIC: She is alert and oriented x4. There is no sensorimotor deficit present. Cranial nerves are intact. LABORATORY AND X-RAY FINDINGS: Showed white count of 8.7, hemoglobin of 11.2, hematocrit 33.7, plate let count is 408, neutrophils 75.3, PT 15.8, INR 1.2, PTT 26. D-dimer is 8.88, normal electrolytes, normal BUN, creatinine 0.91, glucose 115, total bilirubin 1.3, the rest of chemistry within normal li mits. BNP 11 38.6. Chest x-ray personally reviewed by me and read showed no acute cardiopulmonary disease. A CT angiogr am personally reviewed by me, did not show any evidence of emboli. EKG showed atrial fibrillation wi th ventricular rate of 138 beats per minute, some nonspecific ST-T wave changes. IMPRESSION: 1. Recurrent atrial fibrillation with rapid ventricular response. 2. History of diastolic congestive heart failure with normal left ventricular ejection fraction. 3. Hypertension. 4. Hyperlipidemia. 5. History of diverticulosis. 6. Recent history of left hip fracture and open reduction and internal fixation. PLAN: The plan is to full admit her. Condition is fair. Activity is bed rest and bathroom privileg es. She is FULL CODE. Her surrogate decision maker is her son who is on his way from [place]. IV Hep-Lock. Lasariel was given 1 dose in the emergency room since her BNP is significantly elevated. We will continue her Cardizem drip. She was given a bolus plus Cardizem drip and she is on 5. We wi ll go up to 10 since she is still tachycardic. She had an echocardiogram done during the previous ad mission, so we do need to repeat that. We will continue her home meds except for carvedilol and we w ill reconcile this when the list is available. We will wait until tomorrow morning, if she does not convert, we will most likely ask her director of health education, Dr. Stevens, to assist with her care. She will be on PUD prophylaxis with Pepcid orally and SCDs for deep venous thrombosis prophylaxis.
[2018-04-07] MEDS ORDERED: Ondansetron HCl/PF 4 MG/2 ML Vial IVP PRN (14:17)
[2018-04-07 14:21] VITALS: BMI 25.7
[2018-04-07 17:06] LABS: Troponin I Less than 0.010 ng/mL (< 0.028)
[2018-04-07] MEDS ORDERED: Digoxin 0.5 MG/2 ML AMP SLOW IVP SCH (19:30)
[2018-04-07] MEDS: Acetaminophen 325 MG TAB PO PRN (19:40)
[2018-04-07] MEDS: Famotidine 20 MG TAB PO SCH (20:04)
[2018-04-08] MEDS ORDERED: Digoxin 0.5 MG/2 ML AMP SLOW IVP SCH ×3 (01:00→20:00)
[2018-04-08] MEDS: Diltiazem 125 MG in Sodium Chloride 0.9% 100 ML IVPB SCH (01:50)
[2018-04-08 04:43] LABS: #Eosinphils 0.4 thou/uL (0.0-0.7); #Lymphocytes 1.4 thou/uL (1.20-3.40); #Monocytes 1.1 thou/uL (0.11-0.59); #Neutrophils 6.9 thou/uL (1.40-6.50); %Basophils 0.2 % (0.0-1.0); %Eosinophils 3.6 % (0.0-10.0); %Lymphocytes 14.3 % (21.0-51.0); %Monocytes 11.6 % (0.0-10.0); %Neutrophils 70.4 % (42.0-75.0); Hemoglobin 11.2 g/dL (12.0-16.0); Mean Corpuscular HGB CONC 33.6 g/dL (32.0-36.0); Mean Corpuscular Hemoglobin 33.4 pg (27.0-31.0); Mean Corpuscular Volume 99.4 fL (78.0-98.0); Mean Platelet Volume 5.9 fL (7.4-10.4); Platelet Count 412 thou/uL (130-400); Red Blood Cell (RBC) Count 3.35 mill/uL (4.20-5.40); White Blood Cell (WBC) Count 9.8 thou/uL (4.8-10.8)
[2018-04-08 04:59] LABS: Anion Gap 13 mmol/L (10-20); BUN (Urea Nitrogen) 13 mg/dL (9.8-20.1); Calc. Creatinine Clearance 52 mL/min (70-130); Calcium 8.4 mg/dL (7.8-10.44); Carbon Dioxide 29 mmol/L (23-31); Chloride 100 mmol/L (98-107); Estimated GFR-MDRD 68; Glucose 86 mg/dL (83-110); Potassium 3.8 mmol/L (3.5-5.1); Sodium 138 mmol/L (136-145)
[2018-04-08] MEDS: Digoxin 0.125 MG TAB PO SCH (08:29)
[2018-04-08] MEDS: Famotidine 20 MG TAB PO SCH ×2 (08:29→20:16)
[2018-04-08] MEDS ORDERED: Enoxaparin Sodium 40 MG/0.4 ML SYRINGE SC SCH (09:00)
[2018-04-08] MEDS: Carvedilol 25 MG TAB PO SCH ×2 (10:29→20:16)
--- NOTE | 2018-04-08 12:20 | CON ---
DATE OF CONSULTATION: 04/08/2018 REASON FOR CONSULTATION: Atrial fibrillation with shortness of breath. PRIMARY TELEVISION SPECIALIST: Dr. Ramírez Stevens. HISTORY OF PRESENT ILLNESS: Ms. Lynch is a very pleasant 87-year-old woman with history of pacemake r placement in addition to paroxysmal atrial fibrillation on oral anticoagulation therapy, who recent ly presented with increased shortness of breath and tachycardia. She recently had a hip fracture sta tus post fixation noted last month. She was currently at [facility] during the episode. No chest leeanna n or pressure noted. Her last LVEF is estimated at 60%-65%. She presented in the emergency room wit h atrial fibrillation with RVR. PAST MEDICAL HISTORY: Hypertension, paroxysmal atrial fibrillation status post pacemaker, hyperlipid emia, recent hip fracture, DJD, diastolic heart failure, knee surgery, colon surgery. SOCIAL HISTORY: No current tobacco or alcohol use. HOME MEDICATIONS: From Dr. Stevens' last note on 11/2017; amiodarone 200 b.i.d., amlodipine q.a.m., Car dizem 180 daily, carvedilol 25 b.i.d., Eliquis 5 mg b.i.d., losartan 100 mg daily, multivitamin, cili um and Tylenol. REVIEW OF SYSTEMS: Ten-point review of systems is reviewed and as above, otherwise negative. PHYSICAL EXAMINATION: GENERAL: Patient is a pleasant female who is in no acute distress. The patient appears her stated a ge. VITAL SIGNS: Blood pressure 132/75, pulse 76, temperature 97.9. NEUROLOGIC: The patient is alert and oriented times 3 with no focal neurologic deficits. HEENT: Sclerae without icterus. Mouth has moist mucous membranes with normal pallor. NECK: No JVD. Carotid upstroke brisk. No bruits bilaterally. LUNGS: Clear to auscultation with unlabored respirations. BACK: No scoliosis or kyphosis. CARDIAC: Irregularly irregular. Tachycardic. ABDOMEN: Soft, nontender, nondistended. No peritoneal signs present. No hepatosplenomegaly. No abnormal striae. EXTREMITIES: 2+ femoral and 2+ dorsalis pedis pulses. No cyanosis, clubbing, or edema. SKIN: No gross abnormalities. PERTINENT LABORATORY DATA: Hemoglobin 11.2, creatinine 0.8, BNP of 1138. IMPRESSION: 1. Atrial fibrillation with rapid ventricular response. 2. Recent hip fracture. 3. Status post pacemaker. RECOMMENDATIONS: I am unsure how Ms. Lynch had her amiodarone stopped. She was on amiodarone per h er last office note dated 11/2017. It does not appear Dr. Stevens was consulted during her last hospita lization. At this point, I would recommend restarting amiodarone therapy. We will also restart Eliq uis at her previous dose. We will try and continue rate control. She does have a pacemaker and can be aggressive with p.o. Cardizem in addition to carvedilol as long as her blood pressure tolerates.
--- NOTE | 2018-04-08 14:36 | PDOC.PN ---
- Subjective Encounter Start Date: 04/08/18 Encounter Start Time: 08:20 -: old records requested/rev Pt seen and examined, chart reviewed in its entirety, this is my first visit with this patient All systems reviewed and neg for all except as stated above - Objective Resuscitation Status: Resuscitation Status FULL:Full Resuscitation MAR Reviewed: Yes Vital Signs & Weight: Vital Signs (12 hours) Temp Pulse Pulse Pulse Resp BP BP 04/08/18 12:00 98.8 F 108 H 18 04/08/18 11:30 76 79 143/71 H 99/81 04/08/18 08:29 100 04/08/18 08:28 100 04/08/18 08:00 97.9 F 76 16 04/08/18 07:00 97.9 F 76 16 04/08/18 04:00 97.8 F 83 16 BP Pulse Ox 04/08/18 12:00 124/62 96 04/08/18 11:30 04/08/18 08:29 04/08/18 08:28 04/08/18 08:00 95 04/08/18 07:00 132/75 98 04/08/18 04:00 125/58 L 97 Weight Weight 147 lb 4.8 oz I&O: 04/07/18 04/08/18 04/09/18 06:59 06:59 06:59 Intake Total 423 Output Total 250 Balance 173 Result Diagrams: 04/08/18 04:15 04/08/18 04:15 Radiology Reviewed by me: Yes EKG Reviewed by me: Yes Phys Exam - Physical Examination Constitutional: NAD HEENT: PERRLA, moist MMs, sclera anicteric, oral pharynx no lesions Neck: no nodes, no JVD, supple, full ROM Respiratory: no wheezing, no rales, no rhonchi, clear to auscultation bilateral Cardiovascular: no significant murmur, no rub, irregular Gastrointestinal: soft, non-tender, no distention, positive bowel sounds Musculoskeletal: pulses present, edema present Neurological: non-focal, normal sensation, moves all 4 limbs Lymphatic: no nodes Psychiatric: normal affect, A&O x 3 Skin: no rash, normal turgor, cap refill <2 seconds Dx/Plan (1) Acute on chronic congestive heart failure with left ventricular diastolic dysfunction Code(s): I50.33 - ACUTE ON CHRONIC DIASTOLIC (CONGESTIVE) HEART FAILURE Status : Acute (2) Atrial fibrillation with RVR Code(s): I48.91 - UNSPECIFIED ATRIAL FIBRILLATION Status: Chronic Comment: resistant to DC DV last admit, reastart coreg, stop Cardizem, on dig. Carduiology consult (3) Tinnitus of both ears Code(s): H93.13 - TINNITUS, BILATERAL Status: Chronic (4) Dyslipidemia Code(s): E78.5 - HYPERLIPIDEMIA, UNSPECIFIED Status: Chronic (5) Hypertension Code(s): I10 - ESSENTIAL (PRIMARY) HYPERTENSION Status: Chronic Qualifiers: Hypertension type: essential hypertension - Plan cont current plan of care, PT/OT, respiratory therapy, out of bed/ambulate * .
[2018-04-08] MEDS: Enoxaparin Sodium 60 MG/0.6 ML SYRINGE SC SCH (20:16)
[2018-04-09] MEDS: Acetaminophen 325 MG TAB PO PRN (01:10)
[2018-04-09] MEDS: Diltiazem 125 MG in Sodium Chloride 0.9% 100 ML IVPB SCH ×2 (04:31→09:30)
[2018-04-09 06:16] LABS: #Basophils 0.1 thou/uL (0.0-0.2); #Eosinphils 0.1 thou/uL (0.0-0.7); #Lymphocytes 1.3 thou/uL (1.20-3.40); #Neutrophils 7.4 thou/uL (1.40-6.50); %Basophils 0.6 % (0.0-1.0); %Eosinophils 1.3 % (0.0-10.0); %Lymphocytes 13.3 % (21.0-51.0); %Monocytes 10.3 % (0.0-10.0); %Neutrophils 74.5 % (42.0-75.0); Hemoglobin 11.1 g/dL (12.0-16.0); Mean Corpuscular HGB CONC 33.8 g/dL (32.0-36.0); Mean Corpuscular Hemoglobin 33.7 pg (27.0-31.0); Mean Corpuscular Volume 99.9 fL (78.0-98.0); Mean Platelet Volume 6.4 fL (7.4-10.4); Platelet Count 402 thou/uL (130-400); RBC Distribution Width 12.9 % (11.5-14.5); Red Blood Cell (RBC) Count 3.29 mill/uL (4.20-5.40)
[2018-04-09 06:49] LABS: Anion Gap 15 mmol/L (10-20); BUN (Urea Nitrogen) 10 mg/dL (9.8-20.1); Calc. Creatinine Clearance 55 mL/min (70-130); Calcium 8.6 mg/dL (7.8-10.44); Carbon Dioxide 25 mmol/L (23-31); Chloride 101 mmol/L (98-107); Estimated GFR-MDRD 73; Glucose 97 mg/dL (83-110); Potassium 3.2 mmol/L (3.5-5.1); Sodium 138 mmol/L (136-145)
[2018-04-09 06:51] LABS: Digoxin 1.16 ng/mL (0.8-2.0)
[2018-04-09] MEDS ORDERED: Diltiazem 125 MG in Sodium Chloride 0.9% 100 ML IVPB SCH (08:53)
[2018-04-09] MEDS: Enoxaparin Sodium 60 MG/0.6 ML SYRINGE SC SCH (09:43)
[2018-04-09] MEDS: Carvedilol 25 MG TAB PO SCH ×2 (09:44→21:02)
[2018-04-09] MEDS: Digoxin 0.125 MG TAB PO SCH (09:44)
[2018-04-09] MEDS: Famotidine 20 MG TAB PO SCH ×2 (09:45→21:02)
--- NOTE | 2018-04-09 11:00 | PDOC.CTH ---
Cardiology Progress Note - Subjective No complaints. Feeling much better today. - Objective Vital Signs Temp Pulse Resp BP Pulse Ox 04/09/18 09:44 77 04/09/18 08:00 97.3 F L 77 18 135/60 97 04/09/18 04:00 97.3 F L 77 12 113/59 L 97 Weight 147 lb 4.8 oz 04/08/18 04/09/18 04/10/18 06:59 06:59 06:59 Intake Total 423 240 240 Output Total 250 Balance 173 240 240 - Physical Examination General/Neuro: alert & oriented x3 Neck: no JVD present Lungs: CTA Heart: RRR Abdomen: NT/ND Extremities: other: (no edema) - Telemetry Telemetry Rhythm: V-pacing w/underlying AF - Labs Result Diagrams: 04/09/18 05:22 04/09/18 05:22 Troponin/CKMB CK-MB (CK-2) 1.6 ng/mL (0-6.6) 04/07/18 09:22 Troponin I Less than 0.010 ng/mL (< 0.028) 04/07/18 16:28 - Assessment/Plan 1. Paroxysmal AFib 2. s/p dual-chamber pacer 3. HTN 4. Chronic diastolic CHF 5. Recent hip fracture Reviewed patient's office and hospital charts extensively. Unsure when episode of AF actually started. Will have pacer interrogated. Resume Eliquis. The best I can tell this was stopped at the time of her hip fracture? The patient is unsure. She denies any bleeding history of complications. If AF onset in the last 48 hours can resume Amio. If longer, will need OAC for a month prior to resuming antiarrhythmics. Continue cardizem and try to wean gtt.
[2018-04-09] MEDS: Potassium Chloride 20 MEQ TAB PO SCH ×3 (13:00→21:01)
--- NOTE | 2018-04-09 15:20 | PDOC.PN ---
- Subjective Encounter Start Date: 04/09/18 Encounter Start Time: 12:30 feeling better. no syncope or presyncope. eliquis restarted by cards. cardizem down to 2.5. cardiolgy deciding if/when we start amio. No F/C,no N/V/d/c, no CP, no SOB all systems reviewed and neg x as above - Objective Resuscitation Status: Resuscitation Status FULL:Full Resuscitation MAR Reviewed: Yes Vital Signs & Weight: Vital Signs (12 hours) Temp Pulse Pulse Pulse Resp BP BP 04/09/18 13:41 73 70 136/61 102/58 L 04/09/18 09:44 77 04/09/18 08:00 97.3 F L 77 18 04/09/18 04:00 97.3 F L 77 12 BP Pulse Ox 04/09/18 13:41 04/09/18 09:44 04/09/18 08:00 135/60 97 04/09/18 04:00 113/59 L 97 Weight Weight 147 lb 4.8 oz I&O: 04/08/18 04/09/18 04/10/18 06:59 06:59 06:59 Intake Total 423 240 240 Output Total 250 Balance 173 240 240 Result Diagrams: 04/09/18 05:22 04/09/18 05:22 Radiology Reviewed by me: Yes EKG Reviewed by me: Yes Phys Exam - Physical Examination Constitutional: NAD HEENT: PERRLA, moist MMs, sclera anicteric, oral pharynx no lesions Neck: no nodes, no JVD, supple, full ROM Respiratory: no wheezing, no rales, no rhonchi, clear to auscultation bilateral Cardiovascular: no significant murmur, no rub, irregular Gastrointestinal: soft, non-tender, no distention, positive bowel sounds Musculoskeletal: no edema, pulses present Neurological: non-focal, normal sensation, moves all 4 limbs Lymphatic: no nodes Psychiatric: normal affect, A&O x 3 Skin: no rash, normal turgor, cap refill <2 seconds Dx/Plan (1) Acute on chronic congestive heart failure with left ventricular diastolic dysfunction Code(s): I50.33 - ACUTE ON CHRONIC DIASTOLIC (CONGESTIVE) HEART FAILURE Status : Acute Comment: secondary to afib (2) Atrial fibrillation with RVR Code(s): I48.91 - UNSPECIFIED ATRIAL FIBRILLATION Status: Chronic Comment: resistant to DC DV last admit, restarted coreg, stop Cardizem, on dig. Cardiology consult - restarted eliquis and possible starting on amio (3) Tinnitus of both ears Code(s): H93.13 - TINNITUS, BILATERAL Status: Chronic (4) Dyslipidemia Code(s): E78.5 - HYPERLIPIDEMIA, UNSPECIFIED Status: Chronic (5) Hypertension Code(s): I10 - ESSENTIAL (PRIMARY) HYPERTENSION Status: Chronic Qualifiers: Hypertension type: essential hypertension - Plan cont current plan of care, incentive spirometry, out of bed/ambulate * .
[2018-04-09] MEDS: Amiodarone 200 MG TAB PO SCH ×2 (15:26→21:02)
[2018-04-09] MEDS: Apixaban 5 MG TAB PO SCH (21:02)
[2018-04-10 05:36] LABS: #Eosinphils 0.1 thou/uL (0.0-0.7); #Lymphocytes 1.1 thou/uL (1.20-3.40); #Monocytes 0.9 thou/uL (0.11-0.59); #Neutrophils 6.5 thou/uL (1.40-6.50); %Basophils 0.2 % (0.0-1.0); %Eosinophils 1.6 % (0.0-10.0); %Lymphocytes 12.4 % (21.0-51.0); %Monocytes 10.3 % (0.0-10.0); %Neutrophils 75.5 % (42.0-75.0); Hemoglobin 10.8 g/dL (12.0-16.0); Mean Corpuscular HGB CONC 33.1 g/dL (32.0-36.0); Mean Corpuscular Hemoglobin 32.7 pg (27.0-31.0); Mean Corpuscular Volume 98.6 fL (78.0-98.0); Mean Platelet Volume 5.9 fL (7.4-10.4); Platelet Count 370 thou/uL (130-400); Platelet Count 371 thou/uL (130-400); Red Blood Cell (RBC) Count 3.31 mill/uL (4.20-5.40); White Blood Cell (WBC) Count 8.6 thou/uL (4.8-10.8)
[2018-04-10 06:46] LABS: Anion Gap 12 mmol/L (10-20); BUN (Urea Nitrogen) 11 mg/dL (9.8-20.1); Calc. Creatinine Clearance 55 mL/min (70-130); Calcium 8.7 mg/dL (7.8-10.44); Carbon Dioxide 23 mmol/L (23-31); Chloride 108 mmol/L (98-107); Estimated GFR-MDRD 73; Glucose 104 mg/dL (83-110); Magnesium 2.1 mg/dL (1.6-2.6); Potassium 4.9 mmol/L (3.5-5.1); Sodium 138 mmol/L (136-145)
[2018-04-10] MEDS: Famotidine 20 MG TAB PO SCH ×2 (08:35→21:15)
[2018-04-10] MEDS: Carvedilol 25 MG TAB PO SCH ×2 (08:35→21:15)
[2018-04-10] MEDS: Apixaban 5 MG TAB PO SCH ×2 (08:35→21:15)
[2018-04-10] MEDS: Digoxin 0.125 MG TAB PO SCH (08:35)
[2018-04-10] MEDS: Amiodarone 200 MG TAB PO SCH ×3 (08:36→21:15)
--- NOTE | 2018-04-10 09:36 | PDOC.PN ---
- Subjective Encounter Start Date: 04/10/18 Encounter Start Time: 09:34 COMPLAINS OF SWELLING AND DISCOMFORT IN LEFT ANTECUBITAL AREA WHERE IV WAS. OTHERWISE FEELS OK. - Objective Resuscitation Status: Resuscitation Status FULL:Full Resuscitation MAR Reviewed: Yes Vital Signs & Weight: Vital Signs (12 hours) Temp Pulse Resp BP BP Pulse Ox 04/10/18 08:35 66 04/10/18 08:34 66 140/66 04/10/18 07:38 97.2 F L 66 17 140/66 96 04/10/18 04:00 97.6 F 75 18 117/56 L 95 Weight Weight 147 lb 4.8 oz I&O: 04/09/18 04/10/18 04/11/18 06:59 06:59 06:59 Intake Total 240 480 Balance 240 480 Result Diagrams: 04/10/18 05:17 04/10/18 05:17 Phys Exam - Physical Examination Constitutional: NAD HEENT: PERRLA, oral pharynx no lesions Neck: no JVD, supple Respiratory: no wheezing, no rales, no rhonchi, clear to auscultation bilateral Cardiovascular: no significant murmur, irregular Gastrointestinal: soft, non-tender, no distention, positive bowel sounds Musculoskeletal: no edema LEFT ANTECUBITAL AREA WITH EDEMA, ERYTHEMA AND TTP, 6 CM Psychiatric: normal affect, A&O x 3 Dx/Plan (1) Atrial fibrillation with RVR Code(s): I48.91 - UNSPECIFIED ATRIAL FIBRILLATION Status: Chronic Plan: RATE CONTROL IMPROVED. ON PO CARDIZEM, AMIODARONE, COREG AND DIGOXIN. STILL ON IV CARDIZEM. DISCUSSED WITH NURSING. CARDIOLOGY TITRATING THE GTT. HAS PPM. ON SEVERAL JACK BLOCKERS ALREADY. STILL IN AFIB WITH PACED BEATS. BACK ON ELIQUIS. WAS HELD AT LAST ADMISSION SECONDARY TO BLEEDING. (2) Hypertension Code(s): I10 - ESSENTIAL (PRIMARY) HYPERTENSION Status: Chronic Qualifiers: Hypertension type: essential hypertension Plan: ON CCB, BETA GURPREET. (3) Phlebitis Code(s): I80.9 - PHLEBITIS AND THROMBOPHLEBITIS OF UNSPECIFIED SITE Status: Acute Plan: WARM COMPRESS. - Plan * ABOVE.
--- NOTE | 2018-04-10 12:06 | PQF ---
CLINICAL DOCUMENTATION IMPROVEMENT CLARIFICATION FORM: ICD-10 Updated PLEASE DO AN ADDENDUM TO THE PROGRESS NOTE WITH ANY DOCUMENTATION UPDATES OR ADDITIONS AND CARRY THROUGH TO DC SUMMARY. THANK YOU. DATE: 04/10 ATTN: DR. JEREMIAH DANIELS Please exercise your independent, professional judgment in responding to the clarification form. Clinical indicators are provided on the bottom of this form for your review. Please check appropriate box(s): Conflicting documentation was noted in the Medical Record, please clarify if patient is being treated/monitored for: [ X] ACUTE ON CHRONIC DIASTOLIC CHF [ ] CHRONIC DIASTOLIC CHF [ ] Other diagnosis [ ] Unable to determine For continuity of documentation, please document condition throughout progress notes and discharge summary. Thank You. CLINICAL INDICATORS - SIGNS / SYMPTOMS/ LABS BNP: 1138 ER PHYSICIAN DIAGNOSES 04/07: AFIB W/RVR, CHF EXACERBATION PHYSICIAN H&P 04/07: REVIEW OF SYSTEMS: CONSTITUTIONAL: SHE C/O SOME LOWER EXTREMITY SWELLING PLUS DYSPNEA FROM LAST NIGHT. PHYSICAL EXAM: EXTREMITIES: 1+ PERIPHERAL EDEMA R LEG & 1-2+ ON THE LEFT. IMPRESSION: 2) HX OF DIASTOLIC CHF W/NORMAL L VENTRICULAR EF. PLAN: LASIX WAS GIVEN 1 DOSE IN THE ER SINCE HER BNP IS SIGNIFICANTLY ELEVATED. ATTENDING PN 04/08 & : DX/PLAN: 1) ACUTE ON CHRONIC CHF W/L VENTRICULAR DIASTOLIC DYSFUNCTION CARDIOLOGY PN 04/09: ASSESSMENT/PLAN: 4) CHRONIC DIASTOLIC CHF RISK FACTORS: ELEVATED BNP (1138) HX OF CHRONIC DIASTOLIC HF HTN AFIB W/RVR TREATMENT: ONE TIME DOSE IV LASIX IN ER (04/07) CARDIOLOGY CONSULT THANK YOU! Cindi (This form is maintained as a part of the permanent medical record) 2014 [employer]. All Rights Reserved Cindi Becerra RN, BSN [email or web address] Office: [phone] [facility]
--- NOTE | 2018-04-10 12:53 | PDOC.CTH ---
<Anastasia Ravi - Last Filed: 04/10/18 13:00> Cardiology Progress Note - Subjective The pt seen and examined. No overnight events. No cardiac complaints. - Objective Vital Signs Temp Pulse Pulse Pulse Resp BP BP 04/10/18 11:50 97.5 F L 71 16 04/10/18 10:06 70 71 120/59 L 04/10/18 08:35 66 04/10/18 08:34 66 140/66 04/10/18 07:38 97.2 F L 66 17 04/10/18 04:00 97.6 F 75 18 BP BP Pulse Ox 04/10/18 11:50 123/58 L 9 L 04/10/18 10:06 126/58 L 04/10/18 08:35 04/10/18 08:34 04/10/18 07:38 140/66 96 04/10/18 04:00 117/56 L 95 Weight 147 lb 4.8 oz 04/09/18 04/10/18 04/11/18 06:59 06:59 06:59 Intake Total 240 480 240 Balance 240 480 240 - Physical Examination General/Neuro: alert & oriented x3 Neck: no JVD present Lungs: CTA Heart: RRR Abdomen: soft Extremities: other: (edema around ankles) - Telemetry Telemetry Rhythm: V paced - Labs Result Diagrams: 04/10/18 05:17 04/10/18 05:17 Troponin/CKMB CK-MB (CK-2) 1.6 ng/mL (0-6.6) 04/07/18 09:22 Troponin I Less than 0.010 ng/mL (< 0.028) 04/07/18 16:28 - Assessment/Plan 1. Paroxysmal AFib - Rate well controlled with Cardizem 240mg PO, Dig 0.125mg qd , Amiodarone 200mg PO TID, and Coreg 25mg BID; Also on Eliquis 5mg BID. Stop Cardizem IV 2.5mg/h. Cont. to monitor on tele 2. s/p dual-chamber pacer - PM interrogation showed no pauses, > 50 episodes of AT/Afib, longest was 13 hrs. 3. HTN - well controlled with current med. 4. Chronic diastolic CHF - stable 5. Recent hip fracture - MAR reviewed * Echo in 03/2018 showed EF 60-65%, mild dilated LA, mild-mod , mild-mod AR, mild MR, mild-mod TR, elevated RV systolic pressure. * Will decrease Amiodarone 200mg TID to BID within 1 wk. Review of Systems - Review of Systems Constitutional: reports: no symptoms reported EENTM: reports: no symptoms reported Respiratory: reports: no symptoms reported Cardiac (ROS): reports: no symptoms reported ABD/GI: reports: no symptoms reported : reports: no symptoms reported Musculoskeletal: reports: no symptoms reported Skin: reports: no symptoms reported <Thomas Stevens - Last Filed: 04/10/18 17:39> Cardiology Progress Note - Objective Vital Signs Temp Pulse Pulse Pulse Resp BP BP 04/10/18 15:28 98.1 F 71 18 04/10/18 14:00 72 73 138/65 04/10/18 11:50 97.5 F L 71 16 04/10/18 10:06 70 71 120/59 L 04/10/18 08:35 66 04/10/18 08:34 66 140/66 04/10/18 07:38 97.2 F L 66 17 BP BP Pulse Ox 04/10/18 15:28 120/57 L 95 04/10/18 14:00 122/60 04/10/18 11:50 123/58 L 9 L 04/10/18 10:06 126/58 L 04/10/18 08:35 04/10/18 08:34 04/10/18 07:38 140/66 96 Weight 147 lb 4.8 oz 04/09/18 04/10/18 04/11/18 06:59 06:59 06:59 Intake Total 240 480 360 Balance 240 480 360 - Labs Result Diagrams: 04/10/18 05:17 04/10/18 05:17 Troponin/CKMB CK-MB (CK-2) 1.6 ng/mL (0-6.6) 04/07/18 09:22 Troponin I Less than 0.010 ng/mL (< 0.028) 04/07/18 16:28 - Assessment/Plan Pt. seen and eval. by me. I agree with the A/P by the BAR HOST. She also has a left arm thrombophlebitis. Thr HR is well controlled with the Afib. May consider cardioversion if she does not self convert on amiodarone.
[2018-04-10] MEDS: Acetaminophen 325 MG TAB PO PRN ×2 (13:56→18:26)
[2018-04-11] MEDS: Carvedilol 25 MG TAB PO SCH ×2 (09:53→20:35)
[2018-04-11] MEDS: Amiodarone 200 MG TAB PO SCH ×3 (09:53→20:35)
[2018-04-11] MEDS: Apixaban 5 MG TAB PO SCH ×2 (09:53→20:35)
[2018-04-11] MEDS: Famotidine 20 MG TAB PO SCH ×2 (09:53→20:35)
[2018-04-11] MEDS: Digoxin 0.125 MG TAB PO SCH (09:53)
--- NOTE | 2018-04-11 13:31 | PDOC.CTH ---
<Anastasia Ravi - Last Filed: 04/11/18 13:29> Cardiology Progress Note - Subjective The pt seen and examined. No overnight events. No cardiac complaints. She has walked 15 feet today with a walker. - Objective Vital Signs Temp Pulse Resp BP BP Pulse Ox 04/11/18 12:00 97.9 F 75 20 113/58 L 95 04/11/18 09:53 76 04/11/18 08:00 98.6 F 76 22 H 135/73 97 04/11/18 04:00 97.5 F L 107 H 17 132/79 96 Weight 136 lb 1.6 oz 04/10/18 04/11/18 04/12/18 06:59 06:59 06:59 Intake Total 480 1267 Output Total 780 Balance 480 487 - Physical Examination General/Neuro: alert & oriented x3 Neck: no JVD present Lungs: CTA Heart: other: (irregular) Abdomen: soft Extremities: other: (No edema) - Telemetry Telemetry Rhythm: Afib, V paced - Labs Result Diagrams: 04/10/18 05:17 04/10/18 05:17 Troponin/CKMB CK-MB (CK-2) 1.6 ng/mL (0-6.6) 04/07/18 09:22 Troponin I Less than 0.010 ng/mL (< 0.028) 04/07/18 16:28 - Assessment/Plan 1. Paroxysmal AFib - Rate well controlled with Cardizem 240mg PO, Dig 0.125mg qd , Amiodarone 200mg PO TID, and Coreg 25mg BID; Also on Eliquis 5mg BID. Stop Cardizem IV 2.5mg/h. Cont. to monitor on tele 2. s/p dual-chamber pacer - PM interrogation showed no pauses, > 50 episodes of AT/Afib, longest was 13 hrs. 3. HTN - well controlled with current med. 4. Chronic diastolic CHF - stable 5. Recent hip fracture - 6. left arm thrombophlebitis - DEC reviewed * Echo in 03/2018 showed EF 60-65%, mild dilated LA, mild-mod , mild-mod AR, mild MR, mild-mod TR, elevated RV systolic pressure. * Will decrease Amiodarone 200mg TID to BID within 1 wk. May consider cardioversion as outpt if she does not self convert on amiodarone. * From Cardiac standpoint, the pt is stable to tx to [facility]. The pt will f/u with Dr Stevens' office within 2-4 wks. Review of Systems - Review of Systems Constitutional: reports: no symptoms reported EENTM: reports: no symptoms reported Respiratory: reports: no symptoms reported Cardiac (ROS): reports: no symptoms reported ABD/GI: reports: no symptoms reported : reports: no symptoms reported Musculoskeletal: reports: no symptoms reported, see HPI <Thomas Stevens - Last Filed: 04/11/18 18:18> Cardiology Progress Note - Objective Vital Signs Temp Pulse Pulse Resp BP BP BP 04/11/18 16:00 98.0 F 73 20 128/60 04/11/18 14:54 71 135/63 04/11/18 12:00 97.9 F 75 20 113/58 L 04/11/18 09:53 76 04/11/18 08:00 98.6 F 76 22 H 135/73 Pulse Ox 04/11/18 16:00 95 04/11/18 14:54 04/11/18 12:00 95 04/11/18 09:53 04/11/18 08:00 97 Weight 136 lb 1.6 oz 04/10/18 04/11/18 04/12/18 06:59 06:59 06:59 Intake Total 480 1267 640 Output Total 780 Balance 480 487 640 - Labs Result Diagrams: 04/10/18 05:17 04/10/18 05:17 Troponin/CKMB CK-MB (CK-2) 1.6 ng/mL (0-6.6) 04/07/18 09:22 Troponin I Less than 0.010 ng/mL (< 0.028) 04/07/18 16:28 - Assessment/Plan Pt. seen and eval. by me. i agree with the a/P by the ADMINISTRATIVE COORDINATOR. Chest clear. Irreg/ irreg.
--- NOTE | 2018-04-11 16:01 | PDOC.PN ---
- Subjective Encounter Start Date: 04/11/18 Encounter Start Time: 09:00 Feels very well. No complaints. No CP or SOB. - Objective Resuscitation Status: Resuscitation Status FULL:Full Resuscitation MAR Reviewed: Yes Vital Signs & Weight: Vital Signs (12 hours) Temp Pulse Resp BP BP Pulse Ox 04/11/18 12:00 97.9 F 75 20 113/58 L 95 04/11/18 09:53 76 04/11/18 08:00 98.6 F 76 22 H 135/73 97 Weight Weight 136 lb 1.6 oz I&O: 04/10/18 04/11/18 04/12/18 06:59 06:59 06:59 Intake Total 480 1267 Output Total 780 Balance 480 487 Result Diagrams: 04/10/18 05:17 04/10/18 05:17 Phys Exam - Physical Examination Constitutional: NAD HEENT: PERRLA, oral pharynx no lesions Neck: no JVD, supple Respiratory: no wheezing, no rales, no rhonchi, clear to auscultation bilateral Cardiovascular: no significant murmur, no rub Gastrointestinal: soft, non-tender, no distention, positive bowel sounds Musculoskeletal: no edema Left antecubital area improved. Still some erythema. Psychiatric: normal affect Dx/Plan (1) Atrial fibrillation with RVR Code(s): I48.91 - UNSPECIFIED ATRIAL FIBRILLATION Status: Chronic Plan: Per Cardiology. HR now stable on Cardizem, Amiodarone, Dig, Coreg. Ok for outpatient follow up. (2) Hypertension Code(s): I10 - ESSENTIAL (PRIMARY) HYPERTENSION Status: Chronic Qualifiers: Hypertension type: essential hypertension (3) Phlebitis Code(s): I80.9 - PHLEBITIS AND THROMBOPHLEBITIS OF UNSPECIFIED SITE Status: Acute Plan: Improved. Continue compress. - Plan * After cardiology cleared her, she initially wanted to go home. MENDEL ERICKSON. MENDEL patient. She decided to return the facility from which she came. Too late for them to accept her today. She will discharge first thing in the morning.
[2018-04-12 06:18] LABS: Hemoglobin 11.4 g/dL (12.0-16.0); Platelet Count 370 thou/uL (130-400)
[2018-04-12] MEDS: Famotidine 20 MG TAB PO SCH (09:04)
[2018-04-12] MEDS: Digoxin 0.125 MG TAB PO SCH (09:04)
[2018-04-12] MEDS: Apixaban 5 MG TAB PO SCH (09:05)
[2018-04-12] MEDS: Amiodarone 200 MG TAB PO SCH (09:05)
[2018-04-12] MEDS: Carvedilol 25 MG TAB PO SCH (09:05)
[2018-04-12 13:08] VITALS: BP 140/67; TEMP 97.7
--- NOTE | 2018-04-13 06:10 | DIS ---
DATE OF ADMISSION: 04/07/2018 DATE OF DISCHARGE: 04/12/2018 DISCHARGE DIAGNOSES: 1. Atrial fibrillation with rapid ventricular response. 2. Hypertension. 3. Left forearm phlebitis. HOSPITAL COURSE: This patient is an 87-year-old female who was discharged from the hospital 2 days prior to this admission with a diagnosis of diastolic heart failure and anemia. She subsequently had developed some shortness of breath and felt her heart palpitating. She was subsequently brought back to the hospital. She was found to be in atrial fibrillation with a rapid ventricular response. Her previous workup had included echocardiogram revealing moderate to severe tricuspid regurgitation and ejection fraction of 60-65% with some diastolic dysfunction as well. She was initially given some Lasix because she had an elevated BNP and she was started on the Cardizem drip. Cardiology was consulted. On their assessment it appeared that the patient had previously been placed on amiodarone for her atrial fibrillation, but somehow the day prior it had been discontinued and she had not been taking it. She was started back on her amiodarone and resumed on her Eliquis. With improvement of the rate control on the drip she was converted over to p.o. Cardizem 240 mg p.o. daily as well as digoxin 0.125 mg every day in addition to her usual Coreg and the addition of the amiodarone. Because the patient had a dual chamber pacemaker she could treated aggressively have her rate managed. Once she was weaned off the drip and stable on her oral medications she was felt to be stable for discharge. Initially, plan was for the patient to be discharged back to her rehab facility; however, the patient declined to do that. After some conversation, she did agree then to go back; however, it was too late in the day to get her transferred. The following day, which is the day of discharge, she again decided she did not want to go back to the rehab facility, but after much consultation the patient and her family she did ultimately agree to that plan. PHYSICAL EXAMINATION: VITAL SIGNS: On the day of discharge temperature is 97.7, pulse 71, respirations 18, O2 sats 96% on room air, BP is 140/67. GENERAL: The patient is awake and alert. She is in no distress. HEART: Irregular, without murmurs. LUNGS: Clear bilaterally. ABDOMEN: Soft, nontender. EXTREMITIES: Warm and dry. DISCHARGE MEDICATIONS: The patient will go home on amiodarone 200 mg 1 p.o. b.i.d., Eliquis 5 mg b.i.d., Lanoxin 0.125 every day, diltiazem 240 mg p.o. daily, losartan 50 mg p.o. every day, carvedilol 25 mg b.i.d., Pepcid 20 mg every day. Fergon 324 mg b.i.d., multivitamin with minerals (Theragran M) 1 p.o. daily, Senokot-S 2 b.i.d., tramadol 100 mg q.6 hours p.r.n., Lovenox 30 units subcu daily, Lasix 20 mg p.o. daily. FOLLOWUP: The patient is to follow up with her PCP and to follow up with Cardiology. DIET: She is to have a regular diet. ACTIVITY: Her activity level will be per therapy at the rehab facility. The patient should return to the emergency department should she have any problems prior to her follow up. CARSON
[2018-04-13] MEDS ORDERED: Famotidine 20 MG TAB PO SCH (09:00)
[2018-04-17] MEDS ORDERED: Amiodarone 200 MG TAB PO SCH (09:00)
== END 2018-04-12 13:49 | DRG 308 ==
LOC: ERS 09:03 → IMCU/EMU 14:07 → 2NO 04-08 16:34
PROVIDERS: ADMIT Internal Medicine; ATTEND Internal Medicine
DX: I48.0 Paroxysmal atrial fibrillation (principal); I50.33 Acute on chronic diastolic (congestive) heart failure; I11.0 Hypertensive heart disease with heart failure; I80.8 Phlebitis and thrombophlebitis of other sites; E78.5 Hyperlipidemia, unspecified; M19.90 Unspecified osteoarthritis, unspecified site; R00.0 Tachycardia, unspecified; I08.3 Combined rheumatic disorders of mitral, aortic and tricuspid valves; H93.13 Tinnitus, bilateral; Z95.0 Presence of cardiac pacemaker; Z87.19 Personal history of other diseases of the digestive system; Z87.81 Personal history of (healed) traumatic fracture; Z79.01 Long term (current) use of anticoagulants
CPT/HCPCS: 36415; 36416; 36430; 51701; 71045; 71046; 71275; 72197; 74183; 80048; 80053; 80061; 80162; 81003; 81015; 82553; 82565; 83735; 83880; 84100; 84134; 84443; 84484; 85007; 85014; 85018; 85025; 85027; 85049; 85379; 85610; 85652; 85730; 86140; 86850; 86870; 86900; 86901; 86922; 87040; 87103; 93005; 93306; 94760; 96365; 96366; 96372; 96374; 96376; A4216; A9579; G0378; G8978-GP-CK; G8978-GP-CL; G8979-GP-CI; G8979-GP-CJ; G8987-GO-CI; G8987-GO-CJ; G8988-GO-CI; G8989-GO-CI; J0131; J0670; J1100; J1160; J1650; J1720; J1940; J2185; J2250; J2270; J2405; J2704; J3010; J3475; J7050; S0028

== ENCOUNTER 2018-05-18 06:01 | Day surgery (SDC) | payer MEDICARE, OTHER ==
[2018-05-17 15:53] VITALS: BMI 24.0
[2018-05-18] MEDS ORDERED: PROPOFOL 20 ML ONE (06:49)
[2018-05-18] MEDS ORDERED: Lidocaine 1% (PF) 30 ML VIAL ONE (06:58)
[2018-05-18] MEDS ORDERED: Hydrocortisone 1% Cream 30 GM TUBE ONE (07:57)
--- NOTE | 2018-05-18 08:13 | DIS ---
DATE OF PROCEDURE: 06/18/2018 PROCEDURE: Electrical cardioversion for atrial fibrillation. OTHER DIAGNOSES: Include atrial fibrillation, she is status post pacemaker insertion. She has a his tory of hypertension. DISCHARGE DIAGNOSES: Include atrial fibrillation, she is status post pacemaker insertion. She has a history of hypertension. PROCEDURE IN HOSPITAL: Include electrocardioversion for atrial fibrillation and back to normal sinus rhythm. DISCHARGE MEDICATIONS: Include losartan 50 mg a day, Cardizem-CD 240 mg daily, digoxin 125 mcg daily , famotidine 20 mg b.i.d., tramadol 50 mg half a tablet daily, ferrous gluconate 324 mg tablets once a day, Senokot 2 tablets as needed for constipation, Eliquis 5 mg b.i.d., amiodarone 200 mg 1 tablet 2 times a day. If she remains in sinus rhythm, we will decrease the dose of this medication in a wee k down to one tablet a day. If she did not maintain sinus rhythm, then we will discontinue this medi cation altogether. Tylenol 325 mg 2 tablets p.r.n. as needed, multivitamins 50+ tablets 1 a day, Cor eg 25 mg 1 b.i.d., Furosemide 40 mg daily. FOLLOWUP: She will follow up with me in the next 1-2 weeks in the office. She will continue routine followups with Dr. Ricardo. HOSPITAL COURSE: This very pleasant 87-year-old female care of for many years and has been in atrial fibrillation. She has been treated by medical management and converted to sinus rhythm. She then was admitted after hip fracture. Medications were held for a while and then unfortunately she c onverted back to atrial fibrillation. She does have a pacemaker, which was inserted in the past due to sick sinus syndrome and she was advised to attempt a cardioversion after she was placed back on tn dications as she has developed some lower extremity edema, mild congestive heart failure symptoms due to the loss of the atrial kick. Today, she underwent electrical cardioversion without difficulties. With one attempt, she was converted back to normal sinus rhythm. Hopefully, she will maintain sinu s rhythm. I will see her back in the office in the next 1-2 weeks and continue to manage her medicat ions. Should she remain in sinus rhythm, then we will decrease the dose of the amiodarone to 200 mg a day. Should she convert back to atrial fibrillation, then I will discontinue this medication and o pt for rate control.
[2018-05-18] MEDS ORDERED: PROPOFOL 200 MG/20 ML VIAL ONE (12:10)
[2018-05-18] MEDS ORDERED: Lidocaine 1% PF 5 ML VIAL ONE (12:10)
--- NOTE | 2018-05-18 16:49 | OP ---
DATE: 05/18/2018 INDICATION FOR PROCEDURE: This is 87-year-old female with a history of intermittent atrial fibrillation who has converted back to atrial fibrillation after an illness. She was advised to undergo an attempt at electrocardioversi on. After she had been on medical management. She has also been on Eliquis. She was taken to recovery area where she underwent short acting propofol anesthesia. Using one attemp t at 250 joules, she was successfully converted back to normal sinus rhythm. She has now atrial paci ng and ventricular pacing. There were no complications or difficulties encountered.
== END 2018-05-18 08:11 | disposition home or self-care (01) ==
LOC: CCL 06:01
PROVIDERS: ATTEND Internal Medicine Cardiovascular Disease
DX: I48.0 Paroxysmal atrial fibrillation (principal); I10 Essential (primary) hypertension; R60.0 Localized edema; Z95.0 Presence of cardiac pacemaker; Z79.01 Long term (current) use of anticoagulants; Z79.899 Other long term (current) drug therapy
CPT/HCPCS: 92960; J2001; J2704

== ENCOUNTER 2018-08-10 16:10 | Outpatient (CLI) | payer MEDICARE, OTHER ==
--- NOTE | 2018-08-10 17:06 | RAD ---
TWO VIEWS CHEST: History: Cough. Date: 08-10-18 Comparison: 04-08-18 FINDINGS: PA and lateral views obtained and demonstrate a dual-lead intracardiac pacing device. Calcification o f the aorta is seen. No evidence of effusions, pneumonia, or pneumothorax seen. IMPRESSION: Unremarkable two views chest. POS: [facility]
== END 2018-08-10 16:11 | disposition home or self-care (01) ==
LOC: RAD 16:10
PROVIDERS: ATTEND Nurse Practitioner
DX: R05 Cough (principal)
CPT/HCPCS: 71046

== ENCOUNTER 2018-11-12 09:28 | Emergency (ER) | payer MEDICARE, OTHER ==
[2018-11-12] MEDS ORDERED: Ondansetron PF 4 MG/2 ML Vial ONE ×2 (11:51→14:53)
[2018-11-12 12:15] LABS: INR-International Normal Ratio 1.1; PTT 29.7 SEC (22.9-36.1); Prothrombin Time 14.3 SEC (12.0-14.7)
[2018-11-12 12:19] LABS: #Lymphocytes 0.4 thou/uL (1.20-3.40); #Monocytes 0.3 thou/uL (0.11-0.59); #Neutrophils 9.3 thou/uL (1.40-6.50); %Basophils 0.4 % (0.0-1.0); %Eosinophils 0.4 % (0.0-10.0); %Lymphocytes 3.5 % (21.0-51.0); %Monocytes 2.7 % (0.0-10.0); %Neutrophils 93.1 % (42.0-75.0); Hemoglobin 14.8 g/dL (12.0-16.0); Mean Corpuscular HGB CONC 32.8 g/dL (32.0-36.0); Mean Corpuscular Hemoglobin 34.2 pg (27.0-31.0); Mean Platelet Volume 7.2 fL (7.4-10.4); Platelet Count 247 thou/uL (130-400); Red Blood Cell (RBC) Count 4.32 mill/uL (4.20-5.40)
[2018-11-12 12:32] LABS: ALT (SGPT) 21 U/L (8-55); AST (SGOT) 30 U/L (5-34); Albumin 4.5 g/dL (3.4-4.8); Alkaline Phosphatase 134 U/L (40-150); Anion Gap 15 mmol/L (10-20); BUN (Urea Nitrogen) 20 mg/dL (9.8-20.1); Bilirubin, Total 0.6 mg/dL (0.2-1.2); Calc. Creatinine Clearance 0 mL/min (70-130); Calcium 9.3 mg/dL (7.8-10.44); Carbon Dioxide 25 mmol/L (23-31); Chloride 103 mmol/L (98-107); Estimated GFR-MDRD 49; Globulin 3.6 g/dL (2.4-3.5); Glucose 105 mg/dL (83-110); Potassium 3.9 mmol/L (3.5-5.1); Protein, Total 8.1 g/dL (6.0-8.3); Sodium 139 mmol/L (136-145)
[2018-11-12] MEDS ORDERED: ISOVUE-370 76%-LOCM 1 ML ONE (13:21)
--- NOTE | 2018-11-12 13:35 | CT ---
CT ABDOMEN WITH CONTRAST CT PELVIS WITH CONTRAST: DATE: 11/12/2018. TIME: 1:11 p.m. HISTORY: An 88-year-old female with nausea, emesis, and diarrhea with low-grade fever. COMPARISON: 06/17/2015. TECHNIQUE: IV injection of iodinated contrast media: 70 mL of Isovue 370. Oral contrast media: 06/18/2015. 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 There is no hydronephrosis or pyelo nephritis. Heavy atherosclerotic calcification of abdominal aorta and common iliac arteries, without aneurysm. Absent uterus. Inferior position of bladder base. Normal, thin mckinley of urinary bladder. No major abnormality identified involving the liver, pancreas, adrenals, left kidney, or spleen. A ppendix not identified with certainty. No small bowel dilation. Fluid throughout lumen of colon and nondilated small intestine. No gastric distention. No pneumoperitoneum or ascites. Left hip metal lic prosthesis. Multiple diverticula throughout descending colon and sigmoid colon without definite signs of diverticulitis. IMPRESSION: 1. Fluid throughout lumen of nondilated small intestine and colon, suggestive of gastroenteritis. 2. Colonic diverticulosis without diverticulitis. 3. No acute findings within the abdominal cavity and pelvic cavity. 4. Status post hysterectomy. Pelvic relaxation. 5. Status post open reduction internal fixation of left intertrochanteric fracture, including dynami c compression screw. 6. Multilevel high-grade lumbar spondylosis. MANE Fowler POS: [facility]
== END 2018-11-12 15:20 | disposition home or self-care (01) ==
LOC: ERS 09:28
DX: R11.2 Nausea with vomiting, unspecified (principal); R19.7 Diarrhea, unspecified; I10 Essential (primary) hypertension; E78.5 Hyperlipidemia, unspecified
CPT/HCPCS: 36415; 74177; 80053; 83605; 84484; 85025; 85610; 85730; 86850; 86900; 86901; 93005; 96361; 96374; J2405; Q9966

== ENCOUNTER 2018-12-30 19:50 | Inpatient (IN) | payer MEDICARE, OTHER ==
[2018-12-30 20:28] LABS: #Eosinphils 0.2 thou/uL (0.0-0.7); #Lymphocytes 0.8 thou/uL (1.20-3.40); #Monocytes 0.7 thou/uL (0.11-0.59); #Neutrophils 5.2 thou/uL (1.40-6.50); %Basophils 0.4 % (0.0-1.0); %Eosinophils 2.4 % (0.0-10.0); %Lymphocytes 11.5 % (21.0-51.0); %Monocytes 10.4 % (0.0-10.0); %Neutrophils 75.3 % (42.0-75.0); Hemoglobin 12.4 g/dL (12.0-16.0); Mean Corpuscular HGB CONC 32.7 g/dL (32.0-36.0); Mean Corpuscular Hemoglobin 33.5 pg (27.0-31.0); Mean Platelet Volume 7.1 fL (7.4-10.4); Platelet Count 214 thou/uL (130-400); RBC Distribution Width 12.5 % (11.5-14.5); Red Blood Cell (RBC) Count 3.71 mill/uL (4.20-5.40); White Blood Cell (WBC) Count 6.8 thou/uL (4.8-10.8)
[2018-12-30 20:56] LABS: ALT (SGPT) 22 U/L (8-55); AST (SGOT) 33 U/L (5-34); Albumin 3.8 g/dL (3.4-4.8); Alkaline Phosphatase 133 U/L (40-150); Anion Gap 13 mmol/L (10-20); BUN (Urea Nitrogen) 16 mg/dL (9.8-20.1); Bilirubin, Total 0.4 mg/dL (0.2-1.2); Calc. Creatinine Clearance 0 mL/min (70-130); Calcium 8.6 mg/dL (7.8-10.44); Carbon Dioxide 26 mmol/L (23-31); Chloride 105 mmol/L (98-107); Estimated GFR-MDRD 48; Globulin 3.2 g/dL (2.4-3.5); Glucose 123 mg/dL (83-110); Potassium 3.8 mmol/L (3.5-5.1); Sodium 140 mmol/L (136-145)
--- NOTE | 2018-12-30 20:56 | CT ---
BRAIN CT WITHOUT IV CONTRAST: 12/30/18 HISTORY: Injury from a fall from standing. COMPARISON: 06/23/18. There is some bilateral atrophy and chronic white matter ischemic changes. Stable small punctate calc ific focus in the right periventricular region. No focal mass or midline shift. No intra or extra-axi al hemorrhage. Sinuses and mastoids are clear of acute process. IMPRESSION: Stable appearing atrophy and chronic white matter ischemic changes and small punctate calcific focus in the right caudate nucleus. No mass or bleed or other acute process. POS: [facility]
--- NOTE | 2018-12-30 21:14 | RAD ---
AP AND LATERAL VIEWS OF THE LEFT FEMUR: 12/30/18 HISTORY: Fall with left thigh pain. AP and lateral views of the left femur demonstrates old surgical hardware in the proximal left femur. Lag compression screw and plates and screws are in good position. The most inferior screw appears to have fractured. There is extensive callus formation and bone remodeling surrounding the intertrocha nteric fracture which has long healed. Vascular calcifications seen in the superficial femoral artery. Left knee osteoarthritic changes see n. IMPRESSION: No definite evidence of acute left femoral fracture seen. POS: [facility]
[2018-12-30] MEDS ORDERED: Lidocaine 1% (PF) 30 ML VIAL ONE (21:16)
--- NOTE | 2018-12-30 21:17 | RAD ---
THREE VIEWS RIGHT WRIST: 12/30/18 HISTORY: Fall, right wrist pain. AP, lateral, and oblique views right wrist is obtained. Images demonstrate a transverse impacted frac ture in the distal right radius. This is compatible with a Colles' type fracture. There is some sligh t posterior angulation of the distal fracture fragment. Severe osteoarthritic changes seen in the first carpometacarpal joint. No other acute abnormality see n. IMPRESSION: Acute Colles' fracture involving the distal right radius. POS: [facility]
--- NOTE | 2018-12-30 21:21 | RAD ---
THREE VIEWS RIGHT SHOULDER: 12/30/18 HISTORY: Right shoulder pain after fall. AP internally, externally and scapular Y-views right shoulder obtained. Three views right shoulder demonstrates no evidence of right shoulder fractures. Subluxations or bony lesions. IMPRESSION: Normal three views right shoulder. POS: [facility]
[2018-12-30] MEDS ORDERED: Fentanyl 100 MCG/2 ML VIAL ONE ×2 (21:51→22:59)
--- NOTE | 2018-12-30 23:49 | CT ---
CT LEFT FEMUR: 12/30/18 HISTORY: Fall. Pain. Axial images are obtained with coronal and sagittal reconstructions. Images demonstrate an old healed fracture involving the left proximal femur. There is a lag compressi on screw with adjacent plates and screws in place. extensive callus formation is seen in this area. T here is an area of lucency involving the left proximal femoral cortex seen in the proximal diaphyseal region. This is nondisplaced. There also appears to be a nondisplaced fracture through the base of t he right femoral neck. IMPRESSION: Findings concerning for right femoral neck fracture which may be acute. There also appears to be a fr acture along the anterior aspect of the cortex of the proximal left femoral diaphysis. POS: [facility]
[2018-12-31 00:54] LABS: INR-International Normal Ratio 1.3; PTT 31.6 SEC (22.9-36.1); Prothrombin Time 16.2 SEC (12.0-14.7)
[2018-12-31] MEDS ORDERED: Ondansetron ODT 4 MG TAB PO PRN ×2 (00:59→13:59)
[2018-12-31] MEDS ORDERED: hydrALAZINE 20 MG/ML VIAL SLOW IVP PRN (00:59)
[2018-12-31] MEDS ORDERED: Dextrose 50% Abboject 50 ML SYRINGE SLOW IVP PRN (00:59)
[2018-12-31] MEDS ORDERED: Ondansetron PF 4 MG/2 ML Vial IVP PRN ×2 (00:59→13:59)
[2018-12-31] MEDS ORDERED: traMADol HCl 50 MG TAB PO PRN (00:59)
[2018-12-31] MEDS ORDERED: Morphine 2 MG/ML SYRINGE SLOW IVP PRN (00:59)
[2018-12-31] MEDS ORDERED: Dextrose 5% in Water 1,000 ML IV PRN (00:59)
[2018-12-31] MEDS ORDERED: Morphine 4 MG/ML VIAL SLOW IVP PRN (03:43)
[2018-12-31] MEDS: Sodium Chloride 0.9% 1,000 ML IV SCH ×2 (03:58→16:51)
[2018-12-31 05:16] VITALS: BMI 26.6
[2018-12-31 05:41] LABS: Bilirubin Negative (Negative); Blood, Urine Negative (Negative); Clarity CLEAR (Clear); Glucose, Urine (Dipstick) Negative (Negative); Leukocyte Negative (Negative); Nitrite Negative (Negative); Protein, Urine (Dipstick) Negative (Neg-Trace); Specific Gravity, Urine 1.017 (1.002-1.036); Urobilinogen 0.2 mg/dL (0.2-1.0); pH, Urine 6.5 (5.0-9.0)
[2018-12-31] MEDS ORDERED: Acetaminophen 500 MG TAB PO PRN (06:11)
[2018-12-31] MEDS: Acetaminophen 1,000 MG in Premix Bag 1 BAG IVPB SCH ×3 (06:18→21:10)
[2018-12-31] MEDS: Ketorolac Tromethamine 30 MG/ML VIAL IVP SCH ×3 (06:18→21:10)
[2018-12-31] MEDS: traMADol HCl 50 MG TAB PO SCH ×2 (06:18→16:11)
[2018-12-31 07:11] LABS: #Eosinphils 0.1 thou/uL (0.0-0.7); #Lymphocytes 0.8 thou/uL (1.20-3.40); #Monocytes 0.9 thou/uL (0.11-0.59); #Neutrophils 5.5 thou/uL (1.40-6.50); %Basophils 0.4 % (0.0-1.0); %Eosinophils 0.8 % (0.0-10.0); %Lymphocytes 11.5 % (21.0-51.0); %Monocytes 12.4 % (0.0-10.0); %Neutrophils 74.9 % (42.0-75.0); Hemoglobin 10.3 g/dL (12.0-16.0); Mean Corpuscular HGB CONC 33.5 g/dL (32.0-36.0); Mean Corpuscular Hemoglobin 33.8 pg (27.0-31.0); Mean Platelet Volume 6.9 fL (7.4-10.4); Platelet Count 177 thou/uL (130-400); RBC Distribution Width 12.3 % (11.5-14.5); Red Blood Cell (RBC) Count 3.05 mill/uL (4.20-5.40); White Blood Cell (WBC) Count 7.3 thou/uL (4.8-10.8)
[2018-12-31] MEDS ORDERED: Carvedilol 25 MG TAB PO SCH (08:00)
[2018-12-31] MEDS ORDERED: Prevnar 13-Val Conj/PF 0.5 ML SYRINGE IM ONE (08:45)
[2018-12-31] MEDS: Carvedilol 25 MG TAB PO SCH (08:59)
[2018-12-31] MEDS ORDERED: Senokot S 8.6-50 MG TAB PO SCH ×2 (09:00→21:00)
[2018-12-31] MEDS ORDERED: Famotidine 20 MG TAB PO SCH (09:00)
--- NOTE | 2018-12-31 09:19 | RAD ---
CHEST 1 VIEW: Date: 12/31/18 HISTORY: Preoperative evaluation. COMPARISON: 08/10/18. FINDINGS: Heart size is within normal limits. Left ICD. Mild increased bronchovascular markings bilaterally, bu t no confluent pneumonia, overt edema, or pleural effusion. IMPRESSION: No acute intrathoracic disease. Left ICD. Atherosclerosis of aorta. POS: [facility]
[2018-12-31] MEDS ORDERED: Fentanyl 100 MCG/2 ML VIAL ONE (09:22)
[2018-12-31] MEDS ORDERED: Neomycin-Polymyxin 1 ML AMP ONE (09:27)
[2018-12-31] MEDS: Ferrous Gluconate 324 MG TAB PO SCH ×2 (09:45→18:05)
[2018-12-31 10:41] LABS: Chloride 106 mmol/L (98-107); Potassium 3.9 mmol/L (3.5-5.1); Sodium 140 mmol/L (136-145)
[2018-12-31 10:42] LABS: Calcium 8.3 mg/dL (7.8-10.44); Glucose 100 mg/dL (83-110)
[2018-12-31 10:44] LABS: Anion Gap 13 mmol/L (10-20); Carbon Dioxide 25 mmol/L (23-31)
[2018-12-31 10:46] LABS: BUN (Urea Nitrogen) 13 mg/dL (9.8-20.1); Calc. Creatinine Clearance 51 mL/min (70-130); Estimated GFR-MDRD 67
[2018-12-31] MEDS ORDERED: Phenylephrine HCL 10 MG/ML VIAL ONE (10:58)
--- NOTE | 2018-12-31 11:31 | CON ---
DATE OF CONSULTATION: 12/31/2018 HISTORY OF PRESENT ILLNESS: Ms. Lynch is an 88-year-old white female, who was at home. She was doing some work out in her garden, went in to get a drink and when she came back out, the patient fell. She had immediate pain in the left hip and right wrist as well as the right shoulder. The patient was unable to ambulate. She had a previous fracture of the left hip, which underwent ORIF with a compression hip screw. The patient was brought to the emergency room. She has no neurologic complaints in her extremities. She remembers everything that happened. X-rays of the left hip shows a compression hip screw in place. The distal screw is broken. I did not see evidence of the other two screws being fracture is in the basicervical region and it is in varus. There was no arthritic changes in the hip joint. X-rays of the right wrist shows a posteriorly displaced fracture of the distal radius consistent with a Colles fracture. The patient had x-rays of her right shoulder, which were negative. PAST MEDICAL HISTORY: The patient had a pacemaker placed in June of 2017 for atrial fibrillation. She has hypertension, hyperlipidemia, and diverticulosis. PAST SURGICAL HISTORY: Above-mentioned pacemaker. She has had colon surgery, knee surgery, ORIF of the left hip. ALLERGIES: NONE. CURRENT MEDICATIONS: Include; 1. Coreg. 2. Losartan. 3. Ferrous gluconate. 4. Pepcid AC. 5. Diltiazem. 6. Amiodarone. 7. Lasix. 8. Donepezil. 9. Sertraline. 10. Eliquis. 11. Namenda. 12. Quetiapine. 13. Fosamax. PHYSICAL EXAMINATION: GENERAL: The patient is a very pleasant female, alert, and oriented x3, cooperative with the examination. The patient currently has a splint on her right upper extremity. She is able to move her fingers. She has mild swelling in her fingers and hands. Neurovascularly intact. EXTREMITIES: The left upper extremity has good range of motion and all joints without pain. The patient has pain with any attempted movement of the left hip. Left lower extremity is neurovascularly intact. She has well-healed scar on the lateral aspect of the hip. Good range of motion of the right lower extremity without pain. IMPRESSION: 1. Fracture in the basicervical region of the left femoral neck with varus malalignment and broken hardware. 2. Right Colles fracture. 3. Atrial fibrillation. 4. Hypertension. 5. Hyperlipidemia. 6. Diverticulosis. PLAN: The patient will require removal of the hardware with re-open reduction and internal fixation of the left proximal femur. I will also check the right wrist. It is my understanding that the emergency room doctors reduced the wrist and placed her in a splint. We will obtain x-rays of the wrist to make sure that it is in good alignment. If not, then we may need to perform a closed reduction of the wrist. The potential risks with the condition of surgery include, but are not limited to infection, bleeding, pain, damage to blood vessels and nerves, nonunion, malunion, patient may require additional surgery, DVT and PE formation. Job ID: [id number]
--- NOTE | 2018-12-31 13:23 | PRG ---
DATE OF SERVICE: 12/31/2018 SUBJECTIVE: The patient is currently on the surgical floor. She was admitted early this morning, status post ground level fall when she sustained a left hip fracture and a right wrist fracture. The patient had a closed reduction of her wrist fracture done in the emergency department and was splinted. She is awaiting surgical evaluation for her proximal femur fracture today. She has been n.p.o. overnight. She has no complaints. She did well and is projected to have surgery today. PHYSICAL EXAMINATION: VITAL SIGNS: Temperature is 98.7, heart rate 70, blood pressure 122/70, respirations 15, and oxygen saturation 92% on room air. GENERAL: The patient is resting comfortably in bed. She was asleep when I entered the room, but was awakened with verbal stimuli, had no complaints. HEENT: Unremarkable. LUNGS: Clear to auscultation with good inspiratory and expiratory effort. HEART: Regular rate and rhythm. ABDOMEN: Soft, flat, nontender with hypoactive bowel sounds. PELVIS: Stable with tenderness to palpation to the left hip consistent with her fracture. EXTREMITIES: Neurovascularly intact x4. Right upper extremity is immobilized in a splint and she has good capillary refill distal to that. LABORATORY FINDINGS: White blood cell count 7.3, hemoglobin 10.3, hematocrit 30.7, platelets 177. Sodium 140, potassium 3.9, chloride 106, CO2 of 25, BUN 13, creatinine 0.81, glucose 100. There are no radiographs reviewed this morning. ASSESSMENT AND PLAN: 1. Status post left proximal femur fracture. 2. Right Colles fracture. 3. History of atrial fibrillation. 4. History of hypertension. 5. History of hyperlipidemia. 6. History of diverticulosis. Plan will be to continue n.p.o. status and likely undergo ORIF of her femur fracture. Per my discussion with Dr. Yip, he is likely just to treat the wrist nonoperatively. Postoperatively with Physical and Occupational Therapy work with the patient, discussed placement and supportive care. Job ID: [id number]
[2018-12-31] MEDS ORDERED: Milk Of Magnesia 30 ML UDCUP PO PRN (13:59)
[2018-12-31] MEDS ORDERED: Fleet Enema 133 ML BOT PR PRN (13:59)
[2018-12-31] MEDS ORDERED: Cepastat Lozenges 1 LOZ PO PRN (13:59)
[2018-12-31] MEDS ORDERED: Bisacodyl 10 MG SUPP PR PRN (13:59)
[2018-12-31] MEDS ORDERED: Alendronate Sodium 70 mg Tablet PO SCH (14:00)
[2018-12-31] MEDS ORDERED: Tranexamic Acid 1,000 MG in Sodium Chloride 0.9% 100 ML IVPB SCH (14:00)
[2018-12-31] MEDS ORDERED: Rocuronium Bromide 10 MG/ML (10ML VIAL) ONE (14:26)
[2018-12-31] MEDS ORDERED: ePHEDrine 50 MG/ML VIAL ONE (14:26)
[2018-12-31] MEDS ORDERED: PHENYLEPHRINE-NS 100 MCG/ML 10 ML SYRINGE ONE (14:26)
[2018-12-31] MEDS ORDERED: Lidocaine 1% PF 5 ML VIAL ONE (14:26)
[2018-12-31] MEDS ORDERED: PROPOFOL 200 MG/20 ML VIAL ONE (14:26)
[2018-12-31] MEDS: Polyethylene Glycol 3350 17 GM Packet PO SCH (16:08)
[2018-12-31] MEDS: Famotidine 20 MG TAB PO SCH (16:12)
[2018-12-31] MEDS: Amiodarone 200 MG TAB PO SCH (16:27)
[2018-12-31] MEDS: Calcium Carbonate + Vit D 1 TAB PO SCH (16:27)
[2018-12-31] MEDS: Donepezil HCl 5 MG TAB PO SCH (16:28)
[2018-12-31] MEDS ORDERED: Ketorolac Tromethamine 30 MG/ML VIAL IVP SCH (18:00)
[2018-12-31] MEDS: CEFAZOLIN 2 GM in Premix Bag 1 BAG IVPB SCH (18:05)
--- NOTE | 2018-12-31 18:27 | OP ---
DATE OF PROCEDURE: 12/31/2018 PREOPERATIVE DIAGNOSES: 1. Fracture of the base of the femoral neck of the left hip. 2. Previous placement of hardware in the left proximal femur with failure of the hardware. 3. Right Colles fracture with displacement. POSTOPERATIVE DIAGNOSES: 1. Fracture of the base of the femoral neck of the left hip. 2. Previous placement of hardware in the left proximal femur with failure of the hardware. 3. Right Colles fracture with displacement. PROCEDURES PERFORMED: 1. Removal of hardware from the proximal femur of the left hip. 2. Open reduction and internal fixation of the basicervical fracture of the proximal femur of the left hip utilizing a trochanteric fixation nail. 3. Closed reduction of right Colles fracture and application of sugar-tong splint. ANESTHESIA: General. DESCRIPTION OF PROCEDURE: The patient was given preoperative IV antibiotics, taken to the operating room, placed in supine position. Satisfactory general anesthesia was performed. The patient was placed on the fracture table. All bony prominences were well padded. Traction was placed across a well-padded left foot and ankle, and C-arm verified good reduction of the basicervical fracture. The lateral aspect of the left hip and thigh were sterilely prepped and draped in usual fashion. A longitudinal incision was made over the lateral aspect of the proximal thigh over previous scar, where she had a compression hip screw placed. Sharp dissection was made down to the iliotibial band. Vastus lateralis was divided. Periosteal elevation was performed. There was significant amount of first bursal and scar tissue and then a significant amount of callus that was covering the plate. Osteotome, rongeur, and curette had to be used to remove the bone from around the compression hip screw plate. There was 3 screws that had been placed into the hip compression screw. The proximal screw was completely intact and was easily removed. The two distal screws had broken and the heads of the screws and approximately a centimeter of the screw was removed. Time was taken to remove the excess callus from around the plate that was eventually removed and the compression screw was taken out of the femoral head and neck. The two 3.5 screws that were in the metaphysis and proximal aspect of the shaft were removed by reaming out the lateral cortex and removing them with translator interpreter. A separate incision was then made proximal to the greater trochanter. A 2.5 inch incision was made under fluoroscopic visualization. A guidepin was placed through the greater trochanter, which was overgrown. It was then over-reamed and an 11 mm x 170 mm in length Synthes trochanteric fixation ruma was inserted to the appropriate depth. An 80 mm helical blade was inserted and then the blade was locked into the ruma and a 5.0 locking screw was placed as a locking screw distally. This provided excellent fixation in the bone and good reduction for the basicervical fracture. The wound was then copiously irrigated with antibiotic solution and closed using #2 Vicryl for the fascia around the vastus lateralis and the iliotibial band, 0 Vicryl, and 2-0 Vicryl for the fat and subcutaneous tissue, and skin was closed skin sheldon. Sterile dressing was applied. The attention was then turned to the right wrist, where the sugar-tong splint was removed and discarded. The C-arm revealed the Colles fracture, still had fairly significant dorsal displacement. The fracture was manipulated and reduced. Reduction was confirmed with the C-arm and a new well-padded, well-molded sugar-tong Orthoglass splint was applied. The patient was then awakened, extubated, and transferred to recovery room in stable condition. ESTIMATED BLOOD LOSS: 600 mL. COMPLICATIONS: None. Job ID: [id number]
[2018-12-31] MEDS: Apixaban 5 MG TAB PO SCH (20:25)
[2018-12-31] MEDS: Carvedilol 6.25 MG TAB PO SCH (20:25)
[2018-12-31] MEDS: Senokot S 8.6-50 MG TAB PO SCH (20:25)
[2018-12-31] MEDS: Losartan 25 MG TAB PO SCH (20:26)
[2018-12-31] MEDS ORDERED: Ferrous Gluconate 324 MG TAB PO SCH ×2 (21:00)
[2018-12-31] MEDS ORDERED: Non-Formulary Item 1 EACH (Carvedilol [Coreg] 12.5 MG) PO SCH (21:00)
[2018-12-31] MEDS ORDERED: traMADol HCl 50 MG TAB PO SCH (22:00)
[2019-01-01] MEDS: Sodium Chloride 0.9% 1,000 ML IV SCH ×3 (00:02→16:04)
[2019-01-01] MEDS: traMADol HCl 50 MG TAB PO PRN ×3 (00:03→17:30)
[2019-01-01] MEDS: CEFAZOLIN 2 GM in Premix Bag 1 BAG IVPB SCH (02:05)
[2019-01-01] MEDS: Ketorolac Tromethamine 30 MG/ML VIAL IVP SCH (04:29)
[2019-01-01] MEDS: Acetaminophen 1,000 MG in Premix Bag 1 BAG IVPB SCH (04:29)
[2019-01-01 06:41] LABS: Hemoglobin 8.8 g/dL (12.0-16.0); Mean Corpuscular HGB CONC 33.4 g/dL (32.0-36.0); Mean Corpuscular Hemoglobin 33.8 pg (27.0-31.0); Mean Platelet Volume 7.4 fL (7.4-10.4); Platelet Count 157 thou/uL (130-400); RBC Distribution Width 13.2 % (11.5-14.5); Red Blood Cell (RBC) Count 2.61 mill/uL (4.20-5.40); White Blood Cell (WBC) Count 6.7 thou/uL (4.8-10.8)
[2019-01-01 07:05] LABS: Anion Gap 11 mmol/L (10-20); BUN (Urea Nitrogen) 14 mg/dL (9.8-20.1); Calc. Creatinine Clearance 51 mL/min (70-130); Calcium 7.6 mg/dL (7.8-10.44); Carbon Dioxide 24 mmol/L (23-31); Chloride 107 mmol/L (98-107); Estimated GFR-MDRD 68; Glucose 107 mg/dL (83-110); Magnesium 1.9 mg/dL (1.6-2.6); Phosphorus 4.2 mg/dL (2.3-4.7); Potassium 3.8 mmol/L (3.5-5.1); Sodium 138 mmol/L (136-145)
--- NOTE | 2019-01-01 07:37 | RAD ---
LEFT HIP: Three fluoroscopic views taken in OR. INDICATION: Hip fracture. Operative imaging during open reduction internal fixation. FINDINGS: These views show intramedullary ruma and pin transfixing a subtrochanteric fracture. POS: [facility]
--- NOTE | 2019-01-01 07:56 | HP ---
ATTENDING SURGEON: Dr. Larose. TRAUMA ACTIVATION: Not applicable. HISTORY OF PRESENT ILLNESS: Andie Lynch is an 88-year-old female who presented to [facility] status post fall from sitting/kneeling. Per patient, she was outside working in her garden when she fell. She denies loss of consciousness, head trauma, shortness of breath, chest pain, palpitations. She landed on her outstretched right upper extremity. She noticed immediate swelling and pain. Additionally, she noticed associated left hip pain. She was seen and evaluated in the emergency room, found to have a right wrist fracture and a left hip fracture. Orthopedic Surgery was notified and Trauma Service was asked to admit. Upon my evaluation, the patient reports moderate pain control. Her right upper extremity has been splinted. PAST MEDICAL HISTORY: ALLERGIES: NONE. HOME MEDICATIONS: Include 1. Pepcid 20 mg p.o. daily. 2. Centrum Silver. 3. Diltiazem 240 mg q.a.m. 4. Amiodarone 200 mg q.a.m. 5. Lasix 40 mg q.a.m. 6. Donepezil 5 mg daily. 7. Sertraline 50 mg daily. 8. Iron supplements b.i.d. 9. Eliquis 5 mg b.i.d. 10. Caltrate 600 mg plus vitamin D3. 11. Carvedilol 25 mg b.i.d. 12. Namenda 10 mg b.i.d. 13. Losartan 25 mg at bedtime. 14. Seroquel 50 mg at bedtime. 15. Fosamax 70 mg. 16. Extra-strength Tylenol p.r.n. CHRONIC MEDICAL ILLNESSES: Include diverticulosis, atrial fibrillation, and hypertension. PAST SURGICAL HISTORY: Significant for left hip surgery, , permanent pacemaker implantation, hernia repair, right knee surgery, and colectomy with end-to-end anastomosis secondary to diverticulitis. SOCIAL HISTORY: The patient lives at home with her son and [id number]. She ambulates with a cane. Alcohol use, endorses one glass of wine nightly. Denies tobacco or illicit drug use. FAMILY HISTORY: Noncontributory in this age patient. REVIEW OF SYSTEMS: A 10-point review of systems is performed and negative except as indicated in the HPI. PHYSICAL EXAMINATION: VITAL SIGNS: Temperature 98.1, pulse 67, respirations 20, O2 saturation 95% on room air, blood pressure 166/77. GENERAL: Elderly appearing female, in no acute distress, resting in bed. HEENT: Head, normocephalic. NECK: Supple. Trachea is midline. There is no midline tenderness to palpation. PULMONARY: Normal work of breathing. Symmetric rise. Lungs are clear to auscultation bilaterally. CARDIOVASCULAR: Regular rate and rhythm. No obvious murmurs, rubs, or gallops. GI: Abdomen is soft, nontender, nondistended. MUSCULOSKELETAL: Right upper extremity dressing is clean, dry, and intact. She is neurovascularly intact distal to the site of her injury. Pulses are 2+ bilaterally. She has bilateral right greater than left chronic lower extremity edema. Left lower extremity range of motion limited secondary to pain. NEURO: No focal deficit is noted. LABORATORY FINDINGS: WBC 6.8, hemoglobin 12.4, hematocrit 38, platelet count 214. INR is 1.3. Sodium 140, potassium 3.8, chloride 105, carbon dioxide 26, BUN 16, creatinine 1.07, glucose 123. AST and ALT within normal limits. Troponin less than 0.10. RADIOGRAPHIC FINDINGS: CT of the brain was negative for acute intracranial abnormality. X-ray of the femur was read as being negative for acute left femoral fracture. However, CT of the left lower extremity demonstrated right femoral neck fracture as well as a fracture along the proximal left femoral diaphysis. Shoulder x-ray is negative for acute bony fracture or abnormality. X-ray of the right wrist demonstrated a Colles fracture per radiology read. ASSESSMENT: 1. Status post presumed mechanical fall. 2. Right Colles fracture. 3. Left femoral fracture. 4. Acute traumatic pain. 5. History of hypertension. 6. History of atrial fibrillation. 7. History of congestive heart failure. 8. Chronic anticoagulation. PLAN: Admit to Trauma Services. Orthopedic Surgery has been notified of patient's Eliquis status. Request the patient remain n.p.o. after midnight. Perioperative pain management with p.o. and IV analgesics. Postoperative PT and OT. Patient's chemical plant technical director is Dr. Stevens who followed the patient during her last hospitalization. Echocardiogram report from 03/2018 demonstrated EF of 60% to 65% with diastolic dysfunction, [id number] aortic stenosis, [id number] aortic regurgitation and tricuspid regurgitation. Case management for postoperative discharge planning anticipate likely a good candidate for inpatient rehabilitation. DVT and gastritis prophylaxis when appropriate. Plan for admission was discussed with the patient and family at bedside and all questions were answered prior to this dictation. Trauma attending has been notified of admission. Job ID: [id number]
--- NOTE | 2019-01-01 08:44 | RAD ---
INTRAOPERATIVE FLUOROSCOPY: HISTORY: Status post reduction. FINDINGS: Two intraoperative fluoroscopic images demonstrate fiberglass cast which limits evaluation of fine chidi ny detail. Distal radius fracture is noted. Alignment is near anatomic. IMPRESSION: Fluoroscopy as above. POS: TABITHA
[2019-01-01] MEDS ORDERED: Multivitamin W/ Minerals 1 TAB PO SCH (09:00)
[2019-01-01] MEDS ORDERED: Donepezil HCl 5 MG TAB PO SCH (09:00)
[2019-01-01] MEDS ORDERED: Furosemide 40 MG TAB PO SCH (09:00)
[2019-01-01] MEDS ORDERED: Amiodarone 200 MG TAB PO SCH (09:00)
[2019-01-01] MEDS ORDERED: CALCIUM CARBONATE PO SCH (09:00)
[2019-01-01] MEDS ORDERED: Famotidine 20 MG TAB PO SCH (09:00)
[2019-01-01] MEDS ORDERED: VITAMIN D3 PO SCH (09:00)
[2019-01-01] MEDS ORDERED: [UNRECOGNIZED DRUG - OTHER] PO SCH (09:00)
[2019-01-01] MEDS: Amiodarone 200 MG TAB PO SCH (09:07)
[2019-01-01] MEDS: Calcium Carbonate + Vit D 1 TAB PO SCH (09:07)
[2019-01-01] MEDS: Donepezil HCl 5 MG TAB PO SCH (09:08)
[2019-01-01] MEDS: Multivitamin W/ Minerals 1 TAB PO SCH (09:08)
[2019-01-01] MEDS: Ferrous Gluconate 324 MG TAB PO SCH ×2 (09:08→16:01)
[2019-01-01] MEDS: Famotidine 20 MG TAB PO SCH (09:08)
[2019-01-01] MEDS: Apixaban 5 MG TAB PO SCH (09:08)
[2019-01-01] MEDS: Carvedilol 25 MG TAB PO SCH (09:08)
[2019-01-01] MEDS: Senokot S 8.6-50 MG TAB PO SCH ×2 (09:08→21:51)
[2019-01-01] MEDS: Polyethylene Glycol 3350 17 GM Packet PO SCH (09:21)
--- NOTE | 2019-01-01 11:40 | PRG ---
DATE OF SERVICE: 01/01/2019 SUBJECTIVE: The patient remains on the surgical floor. She is hospital day 3, postop day #1 from a ground level fall when she sustained a proximal femur fracture that underwent open reduction and internal fixation yesterday with Dr. Yip. She tolerated this procedure well. Overnight, had no issues. The patient also underwent closed reduction of right Colles fracture. The patient is currently waiting to work with Physical and Occupational Therapy. She is currently tolerating a diet. Her pain is controlled. OBJECTIVE: VITAL SIGNS: Temperature is 97.5, heart rate 87, blood pressure 115/76, respirations 16, and oxygen saturation 95% on room air. GENERAL: The patient is resting comfortably in bed. She appears in no distress. She is awake and appropriate. HEENT: Unremarkable. LUNGS: Clear to auscultation with good inspiratory and expiratory effort. HEART: Regular rate and rhythm. ABDOMEN: Soft, flat, and nontender with active bowel sounds. EXTREMITIES: Neurovascularly intact x4. Postop dressing is clean, dry, and intact. Splint is clean, dry, and intact. LABORATORY FINDINGS: White blood cell count 6.7, hemoglobin 8.8, hematocrit 26.4, and platelets 157. Sodium 138, potassium 3.8, chloride 107, CO2 of 24, BUN 14, creatinine 0.80, glucose 107, magnesium 1.9, phosphorus 4.2. There are no radiograph to review this morning. ASSESSMENT AND PLAN: 1. Status post left proximal femur fracture, status post open reduction and internal fixation of the same. 2. Right Colles fracture, status post closed reduction and splinting. 3. History of atrial fibrillation. 4. History of hypertension. 5. History of hyperlipidemia. 6. History of diverticulosis. PLAN: Plan will be to continue supportive care, physical and occupational therapy, and await final placement decision. The patient was seen with Dr. Boothe during rounds this morning. The patient had her Gilliam discontinued this morning. We are holding her Eliquis until tomorrow for a repeat CBC and she will be saline locked. Job ID: [id number]
[2019-01-01] MEDS: Ibuprofen 600 MG TAB PO SCH ×2 (16:01→21:52)
--- NOTE | 2019-01-01 16:20 | PRG ---
DATE OF SERVICE: 01/01/2019 SUBJECTIVE: Ms. Lynch is one day status post removal of hardware from the left proximal femur and open reduction and internal fixation of the left proximal femur and closed reduction and application of splint to the right distal radius. The patient has done well overnight. She has been eating well, and her pain is well controlled. OBJECTIVE: VITAL SIGNS: The patient has been afebrile. Blood pressure 115/76, O2 saturation 95% on room air. EXTREMITIES: The right hand and the left lower extremity are both neurovascularly intact. LABORATORY DATA: Hemoglobin is 8.8. ASSESSMENT AND PLAN: The patient will continue to work with Physical and Occupational Therapy to help mobilize the patient. Her best option at discharge would be go to either rehab or [facility] facility, so that she can improve her transfer ability or ambulation and overall independence. Job ID: [id number]
[2019-01-01] MEDS ORDERED: Sodium Chloride 0.9% 1,000 ML IV SCH (19:45)
[2019-01-01] MEDS: Carvedilol 6.25 MG TAB PO SCH (21:51)
[2019-01-01] MEDS: Losartan 25 MG TAB PO SCH (21:51)
[2019-01-01] MEDS: Acetaminophen 500 MG TAB PO PRN (21:52)
[2019-01-02] MEDS: Acetaminophen 500 MG TAB PO PRN (06:28)
[2019-01-02] MEDS: Ibuprofen 600 MG TAB PO SCH ×3 (06:28→21:52)
[2019-01-02] MEDS ORDERED: Acetaminophen 500 MG TAB PO PRN (07:32)
[2019-01-02 07:35] LABS: Hemoglobin 8.3 g/dL (12.0-16.0); Mean Corpuscular HGB CONC 32.7 g/dL (32.0-36.0); Mean Corpuscular Hemoglobin 33.3 pg (27.0-31.0); Mean Platelet Volume 7.7 fL (7.4-10.4); Platelet Count 176 thou/uL (130-400); White Blood Cell (WBC) Count 7.1 thou/uL (4.8-10.8)
[2019-01-02] MEDS ORDERED: Hydrocortisone Sod Succ/PF 100 mg/2 ml Vial IVP SCH ×2 (08:15→12:00)
[2019-01-02] MEDS ORDERED: Bacteriostatic Water 30 ML VIAL FS PRN (08:33)
[2019-01-02] MEDS: Calcium Carbonate + Vit D 1 TAB PO SCH (09:05)
[2019-01-02] MEDS: Senokot S 8.6-50 MG TAB PO SCH ×2 (09:05→21:52)
[2019-01-02] MEDS: Ferrous Gluconate 324 MG TAB PO SCH ×2 (09:05→17:10)
[2019-01-02] MEDS: Donepezil HCl 5 MG TAB PO SCH (09:05)
[2019-01-02] MEDS: Multivitamin W/ Minerals 1 TAB PO SCH (09:06)
[2019-01-02] MEDS: Amiodarone 200 MG TAB PO SCH (09:06)
[2019-01-02] MEDS: Famotidine 20 MG TAB PO SCH (09:07)
[2019-01-02] MEDS: Polyethylene Glycol 3350 17 GM Packet PO SCH (09:08)
[2019-01-02] MEDS: Apixaban 5 MG TAB PO SCH ×2 (09:21→21:52)
--- NOTE | 2019-01-02 10:45 | PRG ---
DATE OF SERVICE: 01/02/2019 SUBJECTIVE: Ms. Lynch is 2 days status post removal of hardware from the left proximal femur and open reduction and internal fixation of the left proximal femur as well as closed reduction of the right distal radius and application of a sugar-tong splint. The patient states that her swelling in her hand is decreased. She is able to move her fingers better. She has been working with OT and PT to try to mobilize and get out of bed. OBJECTIVE: VITAL SIGNS: Temperature 97.6, pulse 69, respiratory rate 16, blood pressure 86/56. LABORATORY DATA: Shows white count 7.1, hemoglobin 8.3, hematocrit 25.4. PLAN: The patient is orthopedically stable to be discharged. She is planning on going to rehab facility. We are waiting for insurance approval. In the meantime, we will continue with PT and OT here. Job ID: [id number]
[2019-01-02] MEDS ORDERED: traMADol HCl 50 MG TAB PO PRN (10:56)
--- NOTE | 2019-01-02 11:46 | PRG ---
DATE OF SERVICE: 01/02/2019 SUBJECTIVE: This is an 88-year-old female, status post operative day #2 open reduction and internal fixation of left proximal femur fracture. The patient also had her right Colles fracture closed reduction and splint remains in place. The patient had no overnight events and reports pain being well controlled. Although, the patient consistently has blood pressure in the low 90s. The patient does have a pacemaker in place. The patient reports having a good appetite. The patient is about to start physical therapy and states her pain is well controlled and she thinks that she will be able to ambulate just fine with physical therapy. OBJECTIVE: VITAL SIGNS: Temperature 97.8, pulse 75, respirations 18, SpO2 of 97% on room air, and blood pressure 99/63. GENERAL: The patient is awake, alert, in no distress. HEENT: Unremarkable. LUNGS: Clear with good inspiratory and expiratory effort. No distress. HEART: Regular rate and rhythm. ABDOMEN: Soft, flat, nontender, and nondistended. EXTREMITIES: Neurovascularly intact x4. Postop dressing clean, dry, and intact. Splint to right arm is clean, dry, and intact. LABORATORY DATA: WBC 7.1, RBC 7.50, hemoglobin 8.3, and hematocrit 25.4. Cortisol 9.10. DIAGNOSTICS: There are no diagnostics to review today. ASSESSMENT: 1. Status post left proximal femur fracture, postoperative day #2, open reduction and internal fixation. 2. Right Colles fracture, status post closed reduction and splinting. 3. Adrenal insufficiency. 4. History of atrial fibrillation. 5. History of hypertension. 6. History of hyperlipidemia. 7. History of diverticulosis. PLAN: We will continue supportive care, physical and occupational therapy. Continue to await final placement decision for rehab. The patient is started on hydrocortisone for adrenal insufficiency. The patient's home blood pressure medications have been discontinued at this time as the patient has been hypotensive. Eliquis will be restarted today as her hemoglobin and hematocrit have been stable. The patient was evaluated with Dr. Boothe during rounds this morning. Job ID: [id number]
[2019-01-02] MEDS: Acetaminophen 500 MG TAB PO SCH ×3 (11:49→23:48)
[2019-01-02] MEDS: Hydrocortisone Sod Succ/PF 100 mg/2 ml Vial IVP SCH ×2 (14:54→21:52)
[2019-01-02] MEDS: Ascorbic Acid 500 mg Chewable Tablet PO SCH (17:10)
[2019-01-02] MEDS: Carvedilol 6.25 MG TAB PO SCH (21:52)
[2019-01-03] MEDS: Hydrocortisone Sod Succ/PF 100 mg/2 ml Vial IVP SCH ×4 (03:50→20:37)
[2019-01-03] MEDS: Ibuprofen 600 MG TAB PO SCH ×3 (05:33→23:37)
[2019-01-03] MEDS: Acetaminophen 500 MG TAB PO SCH ×3 (05:33→17:26)
[2019-01-03] MEDS: Ascorbic Acid 500 mg Chewable Tablet PO SCH ×2 (05:33→17:26)
[2019-01-03 06:58] LABS: Mean Corpuscular HGB CONC 32.4 g/dL (32.0-36.0); Mean Corpuscular Hemoglobin 33.3 pg (27.0-31.0); Mean Platelet Volume 7.5 fL (7.4-10.4); Platelet Count 206 thou/uL (130-400); Red Blood Cell (RBC) Count 2.39 mill/uL (4.20-5.40)
[2019-01-03] MEDS ORDERED: traMADol HCl 50 MG TAB PO PRN (07:39)
[2019-01-03] MEDS: Apixaban 5 MG TAB PO SCH ×2 (09:16→20:37)
[2019-01-03] MEDS: Multivitamin W/ Minerals 1 TAB PO SCH (09:17)
[2019-01-03] MEDS: Polyethylene Glycol 3350 17 GM Packet PO SCH (09:17)
[2019-01-03] MEDS: Ferrous Gluconate 324 MG TAB PO SCH ×2 (09:17→17:26)
[2019-01-03] MEDS: Calcium Carbonate + Vit D 1 TAB PO SCH (09:17)
[2019-01-03] MEDS: Famotidine 20 MG TAB PO SCH (09:17)
[2019-01-03] MEDS: Senokot S 8.6-50 MG TAB PO SCH ×2 (09:17→20:37)
[2019-01-03] MEDS: Donepezil HCl 5 MG TAB PO SCH (09:18)
[2019-01-03] MEDS: Carvedilol 25 MG TAB PO SCH (12:17)
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
[2019-01-04] MEDS: Acetaminophen 500 MG TAB PO SCH ×3 (00:46→12:27)
[2019-01-04] MEDS: Hydrocortisone Sod Succ/PF 100 mg/2 ml Vial IVP SCH (02:47)
--- NOTE | 2019-01-04 04:56 | TCOM ---
DATE OF STUDY: 01/03/2019 SUBJECTIVE: Ms. Lynch is feeling much better. Pain is decreased and she is able to gradually increase her activities with therapy. The patient is afebrile. Vital signs are stable. Left lower extremity and the right hand are both neurovascularly intact. The patient only will be going to rehab at discharge, waiting on insurance authorization. It is probable, she will be able to be discharged to rehab tomorrow. Paper work has been filled out for the patient for discharge. Job ID: [id number]
[2019-01-04] MEDS: Ibuprofen 600 MG TAB PO SCH (05:49)
[2019-01-04] MEDS: Ascorbic Acid 500 mg Chewable Tablet PO SCH (05:50)
[2019-01-04 07:55] VITALS: BP 154/73; TEMP 98
[2019-01-04] MEDS ORDERED: Hydrocortisone Sod Succ/PF 100 mg/2 ml Vial IVP SCH (09:00)
[2019-01-04] MEDS: Apixaban 5 MG TAB PO SCH (09:41)
[2019-01-04] MEDS: Famotidine 20 MG TAB PO SCH (09:41)
[2019-01-04] MEDS: Ferrous Gluconate 324 MG TAB PO SCH (09:41)
[2019-01-04] MEDS: Calcium Carbonate + Vit D 1 TAB PO SCH (09:41)
[2019-01-04] MEDS: Multivitamin W/ Minerals 1 TAB PO SCH (09:41)
[2019-01-04] MEDS: Senokot S 8.6-50 MG TAB PO SCH (09:42)
[2019-01-04] MEDS: Carvedilol 25 MG TAB PO SCH (09:42)
[2019-01-04] MEDS: Donepezil HCl 5 MG TAB PO SCH (09:42)
[2019-01-04] MEDS: Polyethylene Glycol 3350 17 GM Packet PO SCH (10:25)
[2019-01-04] MEDS ORDERED: predniSONE 5 MG TAB PO SCH (10:45)
[2019-01-04] MEDS ORDERED: predniSONE 5 MG/5 ML UDCUP PO SCH (21:00)
--- NOTE | 2019-01-05 13:05 | DIS ---
DATE OF ADMISSION: 12/31/2018 DATE OF DISCHARGE: 01/04/2019 DISCHARGE PHYSICIAN: Dr. Boothe. CONSULT: Orthopedics, Dr. Yip. PROCEDURES: 1. On 12/30/2018, brain CT, impression; stable appearing atrophy and chronic white matter. No mass or bleed or other acute process. 2. On 12/30/2018, femur x-ray, no definite evidence of acute left femoral fracture seen. 3. On 12/30/2018, shoulder x-ray, normal three-view right shoulder. 4. On 12/30/2018, wrist x-ray, acute Colles fracture involving the distal right radius. 5. Lower extremity CT, findings concerning for right femoral neck fracture. 6. On 12/31/2018, chest x-ray, no acute intrathoracic disease. Left implantable cardioverter-defibrillator. Atherosclerosis of aorta. PRIMARY DIAGNOSIS: Status post mechanical fall with right Colles fracture and left femoral fracture. SECONDARY DIAGNOSES: 1. Acute traumatic pain. 2. History of hypertension. 3. History of atrial fibrillation. 4. History of congestive heart failure, on chronic anticoagulation. DISCHARGE MEDICATIONS: 1. Amiodarone 200 mg q.a.m. 2. Eliquis 5 mg p.o. b.i.d. 3. Vitamin C 500 mg b.i.d. 4. Dulcolax 10 mg suppository as needed. 5. Calcium carbonate plus vitamin D 1 tablet p.o. daily. 6. Coreg 6.25 at bedtime. 7. Coreg 25 mg p.o. q.a.m. 8. Cepastat lozenge. 9. Cardizem 240 mg capsule p.o. daily. 10. Aricept 5 mg p.o. daily. 11. Pepcid 20 mg p.o. daily. 12. Ferrous gluconate 324 mg p.o. b.i.d. 13. Motrin 600 mg p.o. q.8 hours. 14. Namenda 10 mg p.o. b.i.d. 15. Multivitamin with minerals 1 tablet daily. 16. Zofran ODT 4 mg as needed. 17. Prednisone 5 mg p.o. b.i.d. for 2 days, then 5 mg once a day for 2 days. 18. Seroquel 25 mg two tablets p.o. at bedtime. 19. Senokot 2 tablets p.o. b.i.d. 20. Zoloft 50 mg p.o. q.a.m. 21. Tramadol 50 mg p.o. q.8 hours as needed for pain. 22. Tylenol 1 g p.o. q.6 hours for pain. 23. Fosamax 70 mg q.7 days. DISCONTINUED MEDICATIONS: None. HISTORY OF PRESENT ILLNESS AND HOSPITAL COURSE: This is an 88-year-old female who has mechanical fall. The patient had no loss of consciousness. The patient had no shortness of breath, chest pain, or palpitations before falling. The patient was taken to the operating room for open reduction and internal fixation of left femoral neck fracture. The patient also had her right wrist reduced with a splint placed. The patient's pain was well controlled during her hospital course. We did have to hold the patient's home blood pressure medications as she was hypotensive in the low 90s postop. The patient was also treated with hydrocortisone for adrenal insufficiency. On the day of discharge, the patient was tapered from her Solu-Cortef, as her blood pressure has been stable for the last 48 hours. The patient participated with physical therapy postop. The patient was deemed stable with stable vital signs on the day of discharge. The patient's exam was unremarkable including cardiopulmonary and GI exam. The patient voices no concerns and her pain is well controlled. The plan was discussed with Dr. Boothe, who agrees with discharge. The patient will be discharged to inpatient rehab for continued occupational and physical therapy. DISPOSITION: Stable. DISCHARGE INSTRUCTIONS: LOCATION: Inpatient rehab. DIET: Regular diet. ACTIVITY: Orthopedic limitations, hip precautions, weightbearing as tolerated left lower extremity. Nonweightbearing right upper extremity. FOLLOWUP: 1. Follow up with Dr. Yip as directed. 2. Follow up with Dr. Boothe's clinic as needed. This is just a summary of the patient's hospital course, please see chart and progress notes. Job ID: [id number]
== END 2019-01-04 14:31 | DRG 481 ==
LOC: ERS 19:50 → SURG A 12-31 00:25
PROVIDERS: ADMIT Specialist; ATTEND Specialist
PROC: 0QP704Z Removal of Internal Fixation Device from Left Upper Femur, Open Approach (ICD-10-PCS; principal; 2018-12-31)
PROC: 0PSHXZZ Reposition Right Radius, External Approach (ICD-10-PCS; 2018-12-31)
PROC: 0QS706Z Reposition Left Upper Femur with Intramedullary Internal Fixation Device, Open Approach (ICD-10-PCS; 2018-12-31)
DX: S72.042A Displaced fracture of base of neck of left femur, initial encounter for closed fracture (principal); S52.531A Colles' fracture of right radius, initial encounter for closed fracture; I50.30 Unspecified diastolic (congestive) heart failure; E27.40 Unspecified adrenocortical insufficiency; W18.30XA Fall on same level, unspecified, initial encounter; Z79.01 Long term (current) use of anticoagulants; K57.90 Diverticulosis of intestine, part unspecified, without perforation or abscess without bleeding; I48.91 Unspecified atrial fibrillation; Z95.0 Presence of cardiac pacemaker; Z90.49 Acquired absence of other specified parts of digestive tract; I11.0 Hypertensive heart disease with heart failure; I08.2 Rheumatic disorders of both aortic and tricuspid valves; I95.9 Hypotension, unspecified; E78.5 Hyperlipidemia, unspecified; G30.9 Alzheimer's disease, unspecified; F02.80 Dementia in other diseases classified elsewhere, unspecified severity, without behavioral disturbance, psychotic disturbance, mood disturbance, and anxiety; Y92.007 Garden or yard of unspecified non-institutional (private) residence as the place of occurrence of the external cause; Z79.899 Other long term (current) drug therapy; Z79.83 Long term (current) use of bisphosphonates
CPT/HCPCS: 36415; 36430; 70450; 71045; 76000; 80048; 80053; 81003; 82533; 83735; 84100; 84484; 85025; 85027; 85610; 85730; 86850; 86900; 86901; 90471; 90662; 90670; 93005; C1769; G0008; G0009; J0131; J1720; J1885; J2001; J2270; J2370; J2704; J3010; J3490; J7512; P9016